=== PATIENT | female | born 1960 | race Caucasian/White ===

== ENCOUNTER → 2016-05-26 | Outpatient (CLI) | payer BC | LOC: WI 12:04 | PROVIDERS: ATTEND Specialist | DX: C50.412 Malignant neoplasm of upper-outer quadrant of left female breast (principal) | CPT/HCPCS: 77061; 76642; G0204 ==

== ENCOUNTER → 2016-06-04 | Day surgery (SDC) | payer BC ==
[~2016-06-04] MED LIST: LIDOCAINE 2% INJ (20 MG/ML) 20 ML MDV ONE
== END ==
LOC: WI 08:08
PROVIDERS: ATTEND Specialist
PROC: 0HBT3ZX Excision of Right Breast, Percutaneous Approach, Diagnostic (ICD-10-PCS; principal; 2016-06-04)
DX: C50.412 Malignant neoplasm of upper-outer quadrant of left female breast (principal)
CPT/HCPCS: 88305 ×2; 88342; 19083; 19084; J3490

== ENCOUNTER → 2016-09-11 | Outpatient (CLI) | payer BC ==
[2016-09-11 10:36] LABS: ABSOLUTE EOSINOPHILS # (AUTO) 0.2 10^3/uL (0.0-0.6); ABSOLUTE LYMPHOCYTES (AUTO) 0.9 10^3/uL (0.5-4.7); ABSOLUTE MONOCYTES (AUTO) 0.3 10^3/uL (0.1-1.4); ABSOLUTE NEUT (AUTO) 1.4 10^3/uL (1.7-8.2); BASOPHILS % (AUTO) 0.7 % (0-2); HEMOGLOBIN 13.4 g/dL (12.0-15.5); HGB HCT DIFFERENCE 0.2; LYMPHOCYTES % (AUTO) 30.7 % (13-45); MEAN CORPUSCULAR HEMOGLOBIN 31.9 pg (27.0-33.4); MEAN CORPUSCULAR HGB CONC 33.4 g/dL (32.0-36.0); MEAN CORPUSCULAR VOLUME 96 fl (80-97); RED BLOOD COUNT 4.19 10^6/uL (3.72-5.28); RED CELL DISTRIBUTION WIDTH 13.1 % (11.5-14.0); SEGMENTED NEUTROPHILS % (AUTO) 49.6 % (42-78); WHITE BLOOD COUNT 2.9 10^3/uL (4.0-10.5)
[2016-09-11 10:57] LABS: ALANINE AMINOTRANSFERASE 40 U/L (9-52); ALBUMIN 4.3 g/dL (3.5-5.0); ALKALINE PHOSPHATASE 89 U/L (38-126); ANION GAP 9 (5-19); ASPARTATE AMINO TRANSFERASE 26 U/L (14-36); BILIRUBIN,DIRECT 0.3 mg/dL (0.0-0.4); BILIRUBIN,TOTAL 0.5 mg/dL (0.2-1.3); BLOOD UREA NITROGEN 13 mg/dL (7-20); CALCIUM 9.5 mg/dL (8.4-10.2); CARBON DIOXIDE 30 mmol/L (22-30); CHLORIDE 104 mmol/L (98-107); CHOLESTEROL 218.68 mg/dL (0-200); CREATININE RESULT 0.72 mg/dL (0.52-1.25); Direct HDL 98 mg/dL (>40); GLUCOSE 192 mg/dL (75-110); SODIUM 143.2 mmol/L (137-145); TOTAL PROTEIN 7.2 g/dL (6.3-8.2); TRIGLYCERIDES 66 mg/dL (<150)
[2016-09-11 11:08] LABS: DIRECT LDL 92 mg/dL (<100)
== END ==
LOC: OD 09:22
PROVIDERS: ATTEND Psychiatry & Neurology Psychiatry
DX: F34.1 Dysthymic disorder (principal); F40.01 Agoraphobia with panic disorder
CPT/HCPCS: 36415; 80053; 80061; 84443; 85025

== ENCOUNTER → 2016-11-18 | Outpatient (CLI) | payer BC ==
--- NOTE | 2016-11-18 11:37 | WOMENS IMAGING REPORT ---
EXAM DESCRIPTION: BONE DENSITY HIP/SPINE COMPLETED DATE/TIME: 11/18/2016 9:28 am REASON FOR STUDY: AGE-RELATED OSTEOPROSIS; M81.0 Z12.31 ENCNTR SCREEN MAMMOGRAM FOR MALIGNANT NEOPL ASM OF LISET M81.0 AGE-RELATED OSTEOPOROSIS W/O CURRENT PATHOLOGICAL FRAC COMPARISON: None. TECHNIQUE: Dual-Energy X-ray Absorptiometry (DEXA) of the AP Spine and Hip. LIMITATIONS: None. FINDINGS: LUMBAR SPINE: The bone mineral density (BMD) measured from L1-L4 in the AP projection correlates with a T-score of -2.3, which is osteopenia as defined by the World Health Organization. HIP: The bone mineral density (BMD) measured in the left hip correlates with a T-score of -2.9, which is o steoporosis as defined by the World Health Organization. IMPRESSION: 1. LUMBAR SPINE: OSTEOPENIA. 2. HIP: OSTEOPOROSIS. COMMENT: The World Health Organization defines low BMD as follows: T-score: Normal: Greater than -1.0 Osteopenia: Between -1.0 and -2.5 Osteoporosis: Less than -2.5 without fractures Established osteoporosis: Less than -2.5 with fractures In general, you may wish to consider: Diagnosis Treatment Follow-up DEXA Normal BMD Prevention 2-3 years Osteopenia Prevention/Therapy 1-2 years Osteoporosis Therapy Yearly TECHNICAL DOCUMENTATION: JOB ID: [id number] [employer]- All Rights Reserved
== END ==
LOC: WI 08:21
PROVIDERS: ATTEND Physician Assistant
DX: Z12.31 Encounter for screening mammogram for malignant neoplasm of breast (principal); M85.88 Other specified disorders of bone density and structure, other site
CPT/HCPCS: 77080

== ENCOUNTER → 2017-06-07 | Outpatient (CLI) | payer BC ==
--- NOTE | 2017-06-11 12:58 | WOMENS IMAGING REPORT ---
EXAM DESCRIPTION: 3D SCREENING MAMMO RIGHT COMPLETED DATE/TIME: 06/07/2017 11:09 am REASON FOR STUDY: SCREENING MAMMO Z12.31 ENCNTR SCREEN MAMMOGRAM FOR MALIGNANT NEOPLASM OF LISET COMPARISON: Multiple since 2012 TECHNIQUE: Standard craniocaudal and mediolateral oblique views of the breast recorded using digital acquisition and breast tomosynthesis. LIMITATIONS: None. FINDINGS: BREAST: Right Findings present which are benign by mammographic criteria. No suspicious masses, calcifications or a rchitectural distortion. Pertinent benign findings: Stable benign breast parenchymal calcifications. Biopsy clip laterally. Read with the assistance of CAD. .[facility] - R2 Cenova Version 1.3 .[facility] - R2 Cenova Version 1.3 .[facility] - R2 Cenova Version 2.4 .[facility] [place] Cenova Version 2.4 .[facility] - R2 Agronomy Manager Version 9.2 Benign mammographic findings may include one or more of the following: Smooth masses, popcorn/rim/co arse calcifications, asymmetries, post-procedure changes, and lesions with long-standing stability. IMPRESSION: NORMAL MAMMOGRAM. BIRADS 2. BREAST DENSITY: c. The breasts are heterogeneously dense, which may obscure small masses. BIRAD: 2 Benign Finding(s) RECOMMENDATION: RECOMMENDATION: ROUTINE SCREENING. Please continue yearly right breast screening t omosynthesis in June 2018 COMMENT: The patient has been notified of the results by letter per MQSA requirements. Additional no tification policies are in place for contacting patient with suspicious or incomplete findings. Quality ID #[id number]: The [employer] recommends an annual screening mammogram for women aged 40 years or over. This facility utilizes a reminder system to ensure that all patients receive reminder letters, and/or direct phone calls for appointments. This includes reminders for routine scr eening mammograms, diagnostic mammograms, or other Breast Imaging Interventions when appropriate. Th is patient will be placed in the appropriate reminder system. The [employer] (ACR) has developed recommendations for screening MRI of the breast s in certain patient populations, to be used in conjunction with mammography. Breast MRI surveillance may be appropriate for women with more than 20% lifetime risk of developing breast cancer as determi romana by genetic testing, significant family history of the disease, or history of mantle radiation for Hodgkins Disease. ACR Practice Guidelines 2008. DBT Technology DBT is a type of tomographic mammography. With conventional mammography, overlapping breast tissue ma y make lesions difficult to detect, even with good compression. DBT uses an x-ray tube that rotates a round the breast, taking images at different angles. These images are then combined to create thin sl ices of the breast that the radiologist can view as a 3D reconstruction. The [employer] unit can perform full-field digital mammograms (2D imaging); or DBT (3D imaging); or both, in a combination mode that quickly performs both the mammogram and the tomosynthesis scan while the breast is still compressed. PQRS 6045F: Fluoroscopic imaging is not utilized for breast tomosynthesis. TECHNICAL DOCUMENTATION: FINDING NUMBER: (1) ASSESSMENT: (1) JOB ID: [id number] [email or web address]- All Rights Reserved Reading location - IP/workstation name: [email or web address]
== END ==
LOC: WI 09:46
PROVIDERS: ATTEND Physician Assistant
DX: Z12.31 Encounter for screening mammogram for malignant neoplasm of breast (principal)

== ENCOUNTER 2018-04-21 17:03 | Emergency (ER) | payer BC ==
[2018-04-21] MEDS ORDERED: LIDOCAINE 4% TRANSPARENT DRESSING 5 GM KIT TP ONE (17:38)
--- NOTE | 2018-04-21 17:56 | ER Document Report ---
ED General - General Stated Complaint: BLOOD SUGAR ISSUES Time Seen by Provider: 04/21/18 17:18 Primary Care Provider: ANA OLEARY MD [NO LOCAL MD] - Follow up tomorrow MER SHIN PA-C [ALLIED HEALTH PROFESSIONAL] - Follow up as needed Notes: Patient is a 57-year-old female insulin-dependent diabetic that presents to the emergency department for chief complaint of hypoglycemic episode. Patient was at home earlier today, was babysitting her grandchildren, when she started to feel sweaty, she tried to eat something, and then had passed out and forgot some of this, EMS was called, her blood glucose was noted to be 12 at that time, she is on insulin pump, usually has a continuous blood glucose monitor that interacts with her pump however she was charging that and it was not on at the time, so she was not made aware of how low her blood glucose was going and also the pump was not adjusted to reduce the amount of insulin being administered. She was not eating as much as she usually does today and thinks that may have b een the cause. She is currently at her baseline, she denies having any nausea, vomiting, headache. By EMS she received a 100 mL bag of D10 water and is feeling much better. No other complaints at this time. Her insulin pump has been removed for the moment. Past Medical History: Type 1 diabetes mellitus, breast cancer in remission Past Surgical History: Left mastectomy, Mediport placement Social History: Denies tobacco, alcohol or drug use. Family History: Reviewed and noncontributory for presenting illness Allergies: Reviewed, see documented allergy list. REVIEW OF SYSTEMS: Other than noted above, the 12 point review of systems was reviewed with the patient and were negative, all pertinent findings are included in the HPI. PHYSICAL EXAMINATION: Vital signs reviewed, nursing noted reviewed. GENERAL: Well-appearing, well-nourished and in no acute distress. HEAD: Atraumatic, normocephalic. EYES: Eyes appear normal, extraocular movements intact, sclera anicteric, conjunctiva are normal. ENT: nares patent, oropharynx clear without exudates. Moist mucous membranes. NECK: Normal range of motion, supple without lymphadenopathy LUNGS: Breath sounds clear to auscultation bilaterally and equal. No wheezes rales or rhonchi. HEART: Regular rate and rhythm without murmurs ABDOMEN: Soft, nontender, normoactive bowel sounds. No rebound, guarding, or rigidity. No masses appreciated. EXTREMITIES: Nontender, good range of motion, no pitting or edema. NEUROLOGICAL: No focal neurological deficits. Moves all extremities spontaneously Motor and sensory grossly intact on exam. PSYCH: Normal mood, normal affect. SKIN: Warm, Dry, normal turgor, no rashes or lesions noted on exposed skin TRAVEL OUTSIDE OF THE [place] IN LAST 30 DAYS: No - Related Data Allergies/Adverse Reactions: cephalexin monohydrate [From Keflex] Allergy (Verified 12/16/15 00:47) iodine [Iodine] Allergy (Verified 12/16/15 00:47) Past Medical History - Social History Smoking Status: Never Smoker Family History: Reviewed & Not Pertinent - Past Medical History Cardiac Medical History: Reports: Hx Hypertension Endocrine Medical History: Reports: Hx Diabetes Mellitus Type 1 Psychiatric Medical History: Reports: Hx Depression Past Surgical History: Reports: Hx Abdominal Surgery, Hx Appendectomy, Hx Breast Surgery - left masectomy, Hx Section, Hx Cholecystectomy - Immunizations Immunizations up to date: Yes Hx Diphtheria, Pertussis, Tetanus Vaccination: Yes Physical Exam - Vital signs Vitals: Resp Pulse Ox 18 100 04/21/18 17:14 04/21/18 17:14 Course - Re-evaluation Re-evalutation: Patient seen and examined vital signs reviewed. Patient was evaluated and treated as appropriate for the patient's presenting symptoms and complaint, with consideration of any critical or life threatening conditions that may be associated with their obtained history and exam as noted above. Patient was treated with D10 water by EMS, and patient was at baseline The patient was re-evaluated and was stable, and felt comfortable being discharged home Evaluation was most consistent with hypoglycemic episode in an insulin-dependent diabetic Plan of care was discussed with the patient at this point, after careful consideration I feel that that patient can be discharged from the emergency department, the patient was educated treatments and reasons to return to the emergency department based on their presumed diagnosis as noted above, they were advised to followup with a primary care physician in 2-3 days. Patient was agreeable to plan of care. *Note is created using voice recognition software and may contain spelling, syntax or grammatical errors. Laboratory 04/21/18 17:15 POC Glucose 86 - Vital Signs Vital signs: Temp Pulse Resp BP Pulse Ox 97.6 F 17 131/66 H 98 04/21/18 18:18 04/21/18 18:18 04/21/18 18:18 04/21/18 18:18 Discharge - Discharge Clinical Impression: Hypoglycemic episode in patient with diabetes mellitus Condition: Stable Disposition: HOME, SELF-CARE Instructions: Hypoglycemia ([facility]) Additional Instructions: Please follow-up with your law examiner tomorrow, call to discuss strategies regarding your insulin pump and continuous glucose monitor. When you get home make sure to eat frequent small meals, and to place her pump back on it your usual regimen, and Starcher continuous glucose monitoring again. Referrals: MER SHIN PAJaxsonC [ALLIED HEALTH PROFESSIONAL] - Follow up as needed ANA OLEARY MD [NO LOCAL MD] - Follow up tomorrow
[2018-04-21 18:41] VITALS: BP 131/66
== END 2018-04-21 18:42 | disposition home or self-care (01) ==
LOC: ER 17:03
DX: E10.65 Type 1 diabetes mellitus with hyperglycemia (principal); I10 Essential (primary) hypertension; Z79.4 Long term (current) use of insulin; Z85.3 Personal history of malignant neoplasm of breast; Z90.49 Acquired absence of other specified parts of digestive tract
CPT/HCPCS: 82962; 99285

== ENCOUNTER → 2018-06-10 | Outpatient (CLI) | payer BC ==
--- NOTE | 2018-06-10 11:38 | WOMENS IMAGING REPORT ---
EXAM DESCRIPTION: 3D SCREENING MAMMO RIGHT COMPLETED DATE/TIME: 06/10/2018 9:15 am REASON FOR STUDY: Z12.31 ROUTINE 3D RT SCREENING Z12.31 ENCNTR SCREEN MAMMOGRAM FOR MALIGNANT NEOPL ASM OF LISET COMPARISON: Multiple since 2012 TECHNIQUE: Standard craniocaudal and mediolateral oblique views of the right breast recorded using d igital acquisition and breast tomosynthesis. Post left mastectomy in 2014 LIMITATIONS: None. FINDINGS: BREAST LATERALITY: Right No masses, worrisome calcifications or architectural distortion. No areas of suspicion. Old biopsy clips are present in the lateral half of the right breast from benign prior biopsies. Read with the assistance of CAD. .[facility] - R2 [employer] Security Version 9.2 IMPRESSION: NORMAL MAMMOGRAM. BIRADS 1. BREAST DENSITY: c. The breasts are heterogeneously dense, which may obscure small masses. BIRAD: 1 Negative RECOMMENDATION: RECOMMENDATION: ROUTINE SCREENING. COMMENT: The patient has been notified of the results by letter per SA requirements. Additional no tification policies are in place for contacting patient with suspicious or incomplete findings. Quality ID #225: The [employer] recommends an annual screening mammogram for women aged 40 years or over. This facility utilizes a reminder system to ensure that all patients receive reminder letters, and/or direct phone calls for appointments. This includes reminders for routine scr eening mammograms, diagnostic mammograms, or other Breast Imaging Interventions when appropriate. Th is patient will be placed in the appropriate reminder system. DBT Technology DBT is a type of tomographic mammography. With conventional mammography, overlapping breast tissue ma y make lesions difficult to detect, even with good compression. DBT uses an x-ray tube that rotates a round the breast, taking images at different angles. These images are then combined to create thin sl ices of the breast that the radiologist can view as a 3D reconstruction. The [employer] unit can perform full-field digital mammograms (2D imaging); or DBT (3D imaging); or both, in a combination mode that quickly performs both the mammogram and the tomosynthesis scan while the breast is still compressed. TECHNICAL DOCUMENTATION: FINDING NUMBER: (1) ASSESSMENT: (1) JOB ID: [id number] [employer]- All Rights Reserved Reading location - IP/workstation name: [email or web address]
== END ==
LOC: WI 08:19
PROVIDERS: ATTEND Internal Medicine Hematology & Oncology
DX: Z12.31 Encounter for screening mammogram for malignant neoplasm of breast (principal)

== ENCOUNTER → 2018-11-21 | Outpatient (CLI) | payer BC ==
--- NOTE | 2018-11-21 10:33 | WOMENS IMAGING REPORT ---
EXAM DESCRIPTION: BONE DENSITY HIP/SPINE COMPLETED DATE/TIME: 11/21/2018 9:59 am REASON FOR STUDY: M81.0 AGE-RELATED OSTEOPOROSIS WITHOUT CURRENT PATHOLOGICAL FRACTURE M81.0 AGE-RE LATED OSTEOPOROSIS W/O CURRENT PATHOLOGICAL FRAC COMPARISON: 2016 TECHNIQUE: Dual-Energy X-ray Absorptiometry (DEXA) of the AP Spine and Hip. LIMITATIONS: None. FINDINGS: LUMBAR SPINE: The bone mineral density (BMD) measured from L1-L4 in the AP projection correlates with a T-score of -1.6, which is osteopenia as defined by the World Health Organization. BMD Change vs Baseline: 10% increase HIP: The bone mineral density (BMD) measured in the left hip correlates with a T-score of -2.7, which is o steoporosis as defined by the World Health Organization. BMD Change vs Baseline: 5% increase 10 year Fracture Risk Assessment: Major Osteoporotic Fracture: Not available. Hip Fracture: Not available. IMPRESSION: 1. LUMBAR SPINE WHO CLASSIFICATION: OSTEOPENIA. 2. HIP WHO CLASSIFICATION: OSTEOPOROSIS. OVERALL ASSESSMENT: WHO CLASSIFICATION: OSTEOPOROSIS. COMMENT: The World Health Organization defines low BMD as follows: T-score: Normal: Greater than -1.0 Osteopenia: Between -1.0 and -2.5 Osteoporosis: Less than -2.5 without fractures Established osteoporosis: Less than -2.5 with fractures In general, you may wish to consider: Diagnosis Treatment Follow-up DEXA Normal BMD Prevention 2-3 years Osteopenia Prevention/Therapy 1-2 years Osteoporosis Therapy Yearly TECHNICAL DOCUMENTATION: JOB ID: [id number] [employer]- All Rights Reserved Reading location - IP/workstation name: [email or web address]
== END ==
LOC: WI 09:35
PROVIDERS: ATTEND Internal Medicine Hematology & Oncology
DX: M81.0 Age-related osteoporosis without current pathological fracture (principal)
CPT/HCPCS: 77080

== ENCOUNTER → 2019-03-06 | Outpatient (CLI) | payer BC ==
--- NOTE | 2019-03-06 14:37 | RADIOLOGY REPORT (SQ) ---
EXAM DESCRIPTION: L SPINE WHOLE COMPLETED DATE/TIME: 03/06/2019 2:18 pm REASON FOR STUDY: LOW BACK PAIN (M54.5) M54.5 LOW BACK PAIN M54.6 PAIN IN THORACIC SPINE M54.2 CE RVICALGIA COMPARISON: None. NUMBER OF VIEWS: Five views including obliques. TECHNIQUE: AP, lateral, oblique, and sacral radiographic images acquired of the lumbar spine. LIMITATIONS: None. FINDINGS: MINERALIZATION: Normal. SEGMENTATION: Normal. No transitional anatomy. ALIGNMENT: Normal. VERTEBRAE: Maintained height. No fracture or worrisome bone lesion. DISCS: Preserved height. No significant osteophytes or end plate irregularity. POSTERIOR ELEMENTS: Pedicles and facets are intact. No pars defect or posterior arch defects. HARDWARE: None in the spine. PARASPINAL SOFT TISSUES: Normal. PELVIS: Intact as visualized. No fractures or worrisome bone lesions. SI joints intact. OTHER: No other significant finding. IMPRESSION: NORMAL 5 VIEW LUMBAR SPINE. TECHNICAL DOCUMENTATION: JOB ID: [id number] [employer]- All Rights Reserved Reading location - IP/workstation name: [email or web address]
--- NOTE | 2019-03-06 14:38 | RADIOLOGY REPORT (SQ) ---
EXAM DESCRIPTION: T SPINE AP/LAT COMPLETED DATE/TIME: 03/06/2019 2:17 pm REASON FOR STUDY: PAIN IN T SPINE (M54.6) M54.5 LOW BACK PAIN M54.6 PAIN IN THORACIC SPINE M54.2 CERVICALGIA COMPARISON: None. NUMBER OF VIEWS: Two views. TECHNIQUE: AP and lateral radiographic images acquired of the thoracic spine. LIMITATIONS: None. FINDINGS: MINERALIZATION: Normal. ALIGNMENT: Normal. No scoliosis. VERTEBRAE: No fracture or bone lesion. Maintained height, normal segmentation. DISCS: Multilevel disc space narrowing with osteophytes. HARDWARE: None in the spine. MEDIASTINUM AND SOFT TISSUES: Normal heart size and aortic contour. No soft tissue abnormality. VISUALIZED LUNG SARAVIA: Clear. OTHER: No other significant finding. IMPRESSION: SPONDYLOSIS WITHOUT BONE LESION OR FRACTURE. TECHNICAL DOCUMENTATION: JOB ID: [id number] [employer]- All Rights Reserved Reading location - IP/workstation name: [email or web address]
--- NOTE | 2019-03-06 14:39 | RADIOLOGY REPORT (SQ) ---
EXAM DESCRIPTION: CERV SP 4 OR 5 VIEWS COMPLETED DATE/TIME: 03/06/2019 2:17 pm REASON FOR STUDY: CERVICALGIA (M54.2) M54.5 LOW BACK PAIN M54.6 PAIN IN THORACIC SPINE M54.2 CERV ICALGIA COMPARISON: None. NUMBER OF VIEWS: Five views. TECHNIQUE: AP, lateral, obliques and odontoid radiographic images acquired of the cervical spine. LIMITATIONS: None. FINDINGS: MINERALIZATION: Normal. ALIGNMENT: Anatomic. VERTEBRAE: Vertebral bodies of normal height. DISCS: There is disc space narrowing at C5-C6. Small anterior osteophytes at the same level. FORAMINA: No osteophytes or foraminal narrowing. LATERAL AND POSTERIOR ELEMENTS: Facets, lateral masses and spinous processes without significant find ings. HARDWARE: None in the spine. SOFT TISSUES: No masses or calcifications. Lung apices clear. OTHER: No other significant finding. IMPRESSION: Disc space narrowing at C5-C6. No other significant findings. TECHNICAL DOCUMENTATION: JOB ID: [id number] [employer]- All Rights Reserved Reading location - IP/workstation name: [email or web address]
== END ==
LOC: RAD 13:00
PROVIDERS: ATTEND Nurse Practitioner Family
DX: M54.5 Low back pain (principal); M47.894 Other spondylosis, thoracic region; M54.6 Pain in thoracic spine; M48.02 Spinal stenosis, cervical region; M54.2 Cervicalgia
CPT/HCPCS: 72050; 72070; 72110

== ENCOUNTER → 2019-07-25 | Outpatient (CLI) | payer MEDICARE, OTHER ==
--- NOTE | 2019-07-26 08:25 | WOMENS IMAGING REPORT ---
EXAM DESCRIPTION: 3D SCREENING MAMMO RIGHT IMAGES COMPLETED DATE/TIME: 07/25/2019 11:06 am REASON FOR STUDY: Z12.31 ENCOUNTER FOR SCREENING MAMMOGRAM FOR MALIGNANT NEOPLASM OF BREAST Z12.31 ENCNTR SCREEN MAMMOGRAM FOR MALIGNANT NEOPLASM OF LISET COMPARISON: 06/10/2028, 06/07/2017, 06/04/2016 EXAM PARAMETERS: Standard craniocaudal and mediolateral oblique views of the breast recorded using d igital acquisition and breast tomosynthesis. Read with the assistance of CAD. .[facility] - R2 Cenova Version 1.3 LIMITATIONS: None. FINDINGS: BREAST LATERALITY: right No suspicious masses, suspicious calcifications or architectural distortion. No areas of concern. IMPRESSION: NEGATIVE MAMMOGRAM. BIRADS 1. BREAST DENSITY: c. The breasts are heterogeneously dense, which may obscure small masses. BIRAD: ASSESSMENT: 1 Negative RECOMMENDATION: RECOMMENDATION: ROUTINE SCREENING. COMMENT: The patient has been notified of the results by letter per SA requirements. Additional no tification policies are in place for contacting patient with suspicious or incomplete findings. Quality ID #225: The [employer] recommends an annual screening mammogram for women aged 40 years or over. This facility utilizes a reminder system to ensure that all patients receive reminder letters, and/or direct phone calls for appointments. This includes reminders for routine scr eening mammograms, diagnostic mammograms, or other Breast Imaging Interventions when appropriate. Th is patient will be placed in the appropriate reminder system. TECHNICAL DOCUMENTATION: FINDING NUMBER: (1) ASSESSMENT: (1) JOB ID: [id number] [employer]- All Rights Reserved Reading location - IP/workstation name: [email or web address]
== END ==
LOC: WI 10:37
PROVIDERS: ATTEND Nurse Practitioner
DX: Z12.31 Encounter for screening mammogram for malignant neoplasm of breast (principal); Z90.12 Acquired absence of left breast and nipple

== ENCOUNTER 2019-12-31 20:55 | Inpatient (IN) | payer MEDICARE, OTHER ==
--- NOTE | 2019-12-31 21:10 | ER Document Report ---
ED Medical Screen (RME) - General Stated Complaint: VOMITTING, HIGH SUGAR Time Seen by Provider: 12/31/19 21:07 Primary Care Provider: DL LEDBETTER FNP-C [Primary Care Provider] - Follow up as needed TRAVEL OUTSIDE OF THE [place] IN LAST 30 DAYS: No - HPI Notes: Patient is a 59-year-old female with a history of diabetes who presents with hyperglycemia and vomiting. Patient has an insulin pump and her alarm has been going off that her blood sugar is high and ranging in the 600s. Accu-Chek done here in the ED read as "high". She reports nausea but denies diarrhea, chest pain, and shortness of breath. - Related Data Allergies/Adverse Reactions: cephalexin monohydrate [From Keflex] Allergy (Verified 09/19/18 16:18) iodine [Iodine] Allergy (Verified 09/19/18 16:18) Past Medical History - Past Medical History Cardiac Medical History: Reports: Hx Hypertension Endocrine Medical History: Reports: Hx Diabetes Mellitus Type 1 Renal/ Medical History: Denies: Hx Peritoneal Dialysis Psychiatric Medical History: Reports: Hx Depression Past Surgical History: Reports: Hx Abdominal Surgery, Hx Appendectomy, Hx Breast Surgery - left masectomy, Hx Section, Hx Cholecystectomy - Immunizations Immunizations up to date: Yes Hx Diphtheria, Pertussis, Tetanus Vaccination: Yes Physical Exam - Cardiovascular Rhythm: Tachycardia Heart sounds: Normal auscultation Course - Re-evaluation Re-evalutation: I have greeted and performed a rapid initial assessment of this patient. A comprehensive ED assessment and evaluation of the patient, analysis of test res ults and completion of medical decision making process will be conducted by an additional ED providers. Doctor's Discharge - Discharge Referrals: DL LEDBETTER FNP-C [Primary Care Provider] - Follow up as needed
[2019-12-31] MEDS ORDERED: NORMAL SALINE 1000 ML 1,000 ML IV ONE (21:38)
[2019-12-31 21:45] LABS: HEMATOCRIT 40.7 % (36.0-47.0); HEMOGLOBIN 12.3 g/dL (12.0-15.5); MEAN CORPUSCULAR HEMOGLOBIN 30.2 pg (27.0-33.4); MEAN CORPUSCULAR HGB CONC 30.1 g/dL (32.0-36.0); MEAN CORPUSCULAR VOLUME 100 fl (80-97); PLATELET COUNT 314 10^3/uL (150-450); RED BLOOD COUNT 4.06 10^6/uL (3.72-5.28); RED CELL DISTRIBUTION WIDTH 14.5 % (11.5-14.0); WHITE BLOOD COUNT 17.8 10^3/uL (4.0-10.5)
[2019-12-31 22:05] LABS: ALBUMIN 4.7 g/dL (3.5-5.0); ALKALINE PHOSPHATASE 174 U/L (38-126); ASPARTATE AMINO TRANSFERASE 28 U/L (14-36); BILIRUBIN,DIRECT 0.4 mg/dL (0.0-0.4); BILIRUBIN,TOTAL 0.5 mg/dL (0.2-1.3); BLOOD UREA NITROGEN 36 mg/dL (7-20); CALCIUM 10.6 mg/dL (8.4-10.2); TOTAL PROTEIN 7.6 g/dL (6.3-8.2)
[2019-12-31 22:08] LABS: ABSOLUTE LYMPHOCYTES# (MANUAL) 1.2 10^3/uL (0.5-4.7); ABSOLUTE MONOCYTES # (MANUAL) 0.9 10^3/uL (0.1-1.4); BASOPHILS % (MANUAL) 0 % (0-2); EOSINOPHILS % (MANUAL) 0 % (0-6); HYPERSEGMENTED NEUTROPHILS PRESENT; LYMPHOCYTES % (MANUAL) 7 % (13-45); MONOCYTES % (MANUAL) 5 % (3-13); SEGMENTED NEUTROPHILS % (MAN) 88 % (42-78); TOTAL CELLS COUNTED 100; TOXIC VACUOLATION PRESENT
[2019-12-31 22:09] LABS: PLATELET COMMENT ADEQUATE
[2019-12-31 22:10] LABS: ANISOCYTOSIS SLIGHT; CHLORIDE 90 mmol/L (98-107)
[2019-12-31 22:12] LABS: BURR CELLS SLIGHT; PLATELET CLUMPS PRESENT; POIKILOCYTOSIS SLIGHT
[2019-12-31 22:15] LABS: ANION GAP 36 (5-19)
[2019-12-31 22:16] LABS: CARBON DIOXIDE 6 mmol/L (22-30); GLUCOSE 812 mg/dL (75-110)
[2019-12-31] MEDS ORDERED: NORMAL SALINE 100 ML with INSULIN REGULAR, HUMAN 100 UNIT IV PRN ×2 (22:29)
[2019-12-31] MEDS ORDERED: DEXTROSE 50%-WATER 25 GM/50 ML DISP.SYRIN IV PRN ×2 (22:29)
[2019-12-31] MEDS ORDERED: DEXTROSE 40% GEL 15 GM TUBE PO PRN ×2 (22:29)
[2019-12-31] MEDS ORDERED: GLUCAGON,HUMAN RECOMB 1 MG INJ IM PRN (22:29)
--- NOTE | 2019-12-31 22:32 | ER Document Report ---
ED General - General Chief Complaint: High Blood Sugar Stated Complaint: VOMITTING, HIGH SUGAR Time Seen by Provider: 12/31/19 21:07 Primary Care Provider: DL LEDBETTER FNP-C [Primary Care Provider] - Follow up as needed TRAVEL OUTSIDE OF THE [place] IN LAST 30 DAYS: No - HPI Notes: 59-year-old female presents with hyperglycemia, she is insulin-dependent diabetic and uses an insulin pump. HPI is limited due to patient's condition. She did bring her pump with her which is noted to have an empty insulin container. When asked when the last time she change it, patient replies that she did not change it yesterday. - Related Data Allergies/Adverse Reactions: cephalexin monohydrate [From Keflex] Allergy (Verified 09/19/18 16:18) iodine [Iodine] Allergy (Verified 09/19/18 16:18) Home Medications: insulin pump, Past Medical History - Social History Smoking Status: Former Smoker Family History: Reviewed & Not Pertinent - Past Medical History Cardiac Medical History: Reports: Hx Hypertension Endocrine Medical History: Reports: Hx Diabetes Mellitus Type 1 Renal/ Medical History: Denies: Hx Peritoneal Dialysis Psychiatric Medical History: Reports: Hx Depression Past Surgical History: Reports: Hx Abdominal Surgery, Hx Appendectomy, Hx Breast Surgery - left masectomy, Hx Section, Hx Cholecystectomy - Immunizations Immunizations up to date: Yes Hx Diphtheria, Pertussis, Tetanus Vaccination: Yes Review of Systems - Review of Systems -: Yes ROS unobtainable due to patient's medical condition Physical Exam - Vital signs Vitals: Temp Pulse Resp BP Pulse Ox 97.4 F 100 16 112/42 L 95 12/31/19 21:08 12/31/19 21:08 12/31/19 21:08 12/31/19 21:08 12/31/19 21:08 - General General appearance: Other - Intermittently somnolent - HEENT Head: Normocephalic, Atraumatic Extraocular movements intact: Yes Pupils: PERRL Mucous membranes: Dry Neck: Supple - Respiratory Respiratory status: Other - No kussumal respirations - Cardiovascular Rhythm: Tachycardia Heart sounds: Normal auscultation - Abdominal Tenderness: Nontender - Extremities General upper extremity: Normal ROM General lower extremity: Normal ROM. No: Edema - Neurological Notes: Patient is intermittently somnolent. She will awaken to voice and make eye contact and answer questions, she will follow commands however falls asleep again easily. Her face is symmetric and speech is clear, she moves all extremities. - Psychological Associated symptoms: Other - Unable to assess - Skin Skin Temperature: Warm Course - Re-evaluation Re-evalutation: 59-year-old female presents with hyperglycemia. Per nursing note patient has had a few episodes of vomiting as well today. On exam patient is sleepy but will awaken to voice, her pupils are equal and reactive and she will answer questions appropriately. I suspect this is due to her empty insulin pump which is at bedside. We will look for obvious infectious source as well. Highly suspicious for DKA. She is currently hemodynamically stable other than some mild sinus tachycardia. She received 1 L of fluids through triage, will give 2 additional liters of LR. Labs suggest DKA, she has hyperglycemia with bicarb of 5 and increased anion gap. She has a leukocytosis, possible reactionary. Hyperkalemia as well. Urine does not suggest UTI. Have ordered insulin infusion at 0.1 units/kg 01/01/20 01:03 Into check on patient. She remains drowsy however she will awaken and answer questions and follow commands. Pupils are equal and reactive. 01/01/20 01:52 VBG has been obtained, pH 7.16, repeat BMP is in process 01/01/20 02:25 Repeat BMP. Potassium has down trended, creatinine improved, glucose down trended. Bicarb slight improvement. 01/01/20 02:30 Spoke with ICU, appropriate for IMCU at this time given pH 01/01/20 02:[address] [place] for admission - Vital Signs Vital signs: Temp Pulse Resp BP Pulse Ox 97.4 F 100 18 130/46 H 99 12/31/19 21:08 12/31/19 21:08 01/01/20 02:30 01/01/20 02:30 01/01/20 02:30 - Laboratory Result Diagrams: 12/31/19 21:30 01/01/20 01:29 Laboratory results interpreted by me: 12/31/19 12/31/19 12/31/19 21:30 21:30 21:30 WBC 17.8 H MCV 100 H MCHC 30.1 L RDW 14.5 H Seg Neuts % (Manual) 88 H Lymphocytes % (Manual) 7 L Abs Neuts (Manual) 15.7 H VBG pH VBG pCO2 VBG HCO3 Sodium 131.7 L Potassium 7.0 H* Chloride 90 L Carbon Dioxide 6 L* Anion Gap 36 H BUN 36 H Creatinine 1.88 H Est GFR ( Amer) 33 L Est GFR (MDRD) Non-Af 27 L Glucose 812 H* POC Glucose Hemoglobin A1c % Calcium 10.6 H Phosphorus 11.4 H Alkaline Phosphatase 174 H Urine Protein Urine Glucose (UA) Urine Ketones 12/31/19 12/31/19 01/01/20 21:30 23:29 01:05 WBC MCV MCHC RDW Seg Neuts % (Manual) Lymphocytes % (Manual) Abs Neuts (Manual) VBG pH 7.16 L* VBG pCO2 22.0 L VBG HCO3 7.6 L Sodium Potassium Chloride Carbon Dioxide Anion Gap BUN Creatinine Est GFR ( Amer) Est GFR (MDRD) Non-Af Glucose POC Glucose Hemoglobin A1c % 9.6 H Calcium Phosphorus Alkaline Phosphatase Urine Protein 30 H Urine Glucose (UA) >=500 H Urine Ketones 80 H 01/01/20 01/01/20 01:29 02:03 WBC MCV MCHC RDW Seg Neuts % (Manual) Lymphocytes % (Manual) Abs Neuts (Manual) VBG pH VBG pCO2 VBG HCO3 Sodium 135.9 L Potassium Chloride Carbon Dioxide 7 L* Anion Gap 28 H BUN 34 H Creatinine 1.53 H Est GFR ( Amer) 42 L Est GFR (MDRD) Non-Af 35 L Glucose 609 H* POC Glucose 504 H* Hemoglobin A1c % Calcium Phosphorus Alkaline Phosphatase Urine Protein Urine Glucose (UA) Urine Ketones - EKG Interpretation by Me Additional EKG results interpreted by me: EKG is interpreted by me. Sinus tachycardia, rate 120. Narrow QRS, QTC within normal limits. No ST segment elevation or depressions. Prominent T waves however not necessarily peaked Critical Care Note - Critical Care Note Total time excluding time spent on procedures (mins): 60 - Patient has condition that is imminently life-threatening. Critical care time provided in relation to DKA and acute management on the ED Discharge - Discharge Clinical Impression: DKA (diabetic ketoacidoses) Qualifiers: Diabetes mellitus type: other specified (including DON) Diabetes mellitus complication detail: without coma Qualified Code(s): E13.10 - Other specified diabetes mellitus with ketoacidosis without coma Disposition: ADMITTED INPATIENT Admitting Provider: [facility] Admitted: IMCU Referrals: DL LEDBETTER FNP-C [Primary Care Provider] - Follow up as needed
[2019-12-31] MEDS: RINGERS SOLUTION,LACTATED 1,000 ML IV PRN ×2 (22:45→23:15)
[2019-12-31 22:53] LABS: PHOSPHORUS 11.4 mg/dL (2.5-4.5)
[2019-12-31] MEDS ORDERED: INSULIN REG, HUMAN 100 UNIT/ML 3 ML VIAL (PYX) ONE (22:53)
--- NOTE | 2020-01-01 00:35 | EKG REPORT ---
SEVERITY:- BORDERLINE ECG - SINUS TACHYCARDIA PROBABLE LEFT ATRIAL ABNORMALITY : Confirmed by: Deepthi Brown MD 01-Jan-2020 00:34:27
[2020-01-01] MEDS ORDERED: RINGERS SOLUTION,LACTATED 1,000 ML IV ONE ×2 (00:42)
[2020-01-01 01:10] LABS: APPEARANCE,URINE SLIGHTLY-CLOUDY; BILIRUBIN,URINE NEGATIVE (NEGATIVE); COLOR,URINE YELLOW; GLUCOSE, URINE >=500 mg/dL (NEGATIVE); KETONES,URINE 80 mg/dL (NEGATIVE); LEUKOCYTE ESTERASE,URINE NEGATIVE (NEGATIVE); NITRITE,URINE NEGATIVE (NEGATIVE); PROTEIN,URINE 30 mg/dL (NEGATIVE); URINE SPECIFIC GRAVITY 1.015; UROBILINOGEN,URINE NEGATIVE mg/dL (<2.0)
[2020-01-01 01:24] LABS: VENOUS BLOOD BASE EXCESS -19.3 mmol/L; VENOUS BLOOD HCO3 7.6 mmol/L (20-32)
[2020-01-01 01:37] LABS: VENOUS BLOOD PH 7.16 (7.30-7.42)
[2020-01-01 02:02] LABS: BLOOD UREA NITROGEN 34 mg/dL (7-20); CALCIUM 9.4 mg/dL (8.4-10.2)
[2020-01-01 02:08] LABS: CHLORIDE 101 mmol/L (98-107)
[2020-01-01 02:18] LABS: CARBON DIOXIDE 7 mmol/L (22-30); GLUCOSE 609 mg/dL (75-110)
[2020-01-01 02:29] LABS: ANION GAP 28 (5-19)
[2020-01-01] MEDS ORDERED: ONDANSETRON HCL INJ/PF 4 MG/2 ML SDV IV PRN (02:58)
[2020-01-01] MEDS ORDERED: 1/2 NORMAL SALINE 1,000 ML with POTASSIUM CHLORIDE 40 MEQ IV PRN ×2 (03:07)
[2020-01-01] MEDS ORDERED: GLUCAGON,HUMAN RECOMB 1 MG INJ IM PRN ×2 (03:11→14:53)
[2020-01-01] MEDS ORDERED: DEXTROSE 50%-WATER 25 GM/50 ML DISP.SYRIN IV PRN ×4 (03:11→14:53)
[2020-01-01] MEDS ORDERED: DEXTROSE 40% GEL 15 GM TUBE PO PRN ×4 (03:11→14:53)
--- NOTE | 2020-01-01 04:18 | PDOC H&P ---
History of Present Illness Admission Date/PCP: JALIL FRAGOSO Patient complains of: Nausea, vomiting History of Present Illness: Patient is very lethargic, unable to give detailed history. History is mainly from ER signout and chart review. CHARLIE PERKINS is a 59 year old female with a history of insulin-dependent diabetes mellitus currently on insulin pump presents the ED reporting nausea, vomiting and generalized weakness. Patient's insulin pump alarm was going off signaling had blood sugar to be high ranging in the 600s. Per ED physician, rochelle champagne's insulin pump was found empty and unable. Patient is very lethargic, sluggish to answer questions but is oriented to place, person and time. She is able to follow simple commands but is unable to give detailed history. She denies shortness of breath, chest pain, fever, dysuria, diarrhea, abdominal pain. Past Medical History Cardiac Medical History: Reports: Hypertension Endocrine Medical History: Reports: Diabetes Mellitus Type 1 Psychiatric Medical History: Reports: Depression Past Surgical History Past Surgical History: Reports: Appendectomy, Section, Cholecystectomy Social History Information Source: Patient Lives with: Family Smoking Status: Former Smoker Hx Recreational Drug Use: No Drugs: None - Advance Directive Resuscitation Status: Full Code Family History Family History: Reviewed & Not Pertinent Parental Family History Reviewed: Yes Children Family History Reviewed: Yes Sibling(s) Family History Reviewed.: Yes Medication/Allergy Home Medications: Metformin HCl [Glucophage 500 Mg Tablet] 500 mg PO BID 12/14/11 Montelukast Sodium [Singulair 10 mg Tablet] 10 mg PO DAILY 06/16/12 Hydrocodone/Acetaminophen [[place] 5-325 Tablet] 1 each PO Q4 PRN #24 tablet 01/12/14 Allergies/Adverse Reactions: cephalexin monohydrate [From Keflex] Allergy (Verified 09/19/18 16:18) iodine [Iodine] Allergy (Verified 09/19/18 16:18) Review of Systems ROS unobtainable: Due to mental status Physical Exam Vital Signs: Temp Pulse Resp BP Pulse Ox 97.4 F 100 18 130/46 H 99 12/31/19 21:08 12/31/19 21:08 01/01/20 02:30 01/01/20 02:30 01/01/20 02:30 Intake & Output 12/30/19 12/31/19 01/01/20 06:59 06:59 06:59 Intake Total 3000 Balance 3000 Weight 67.1 kg Additional comments: GENERAL APPEARANCE: Lethargic, arousable with voice, in no acute distress HEENT: Normocephalic and atraumatic. No scleral icterus. Dry oral mucosa NECK: Supple. No lymphadenopathy or tenderness. No JVD CHEST: Symmetric. Nontender to palpation. LUNGS: Clear with good air entry bilaterally. Has no Kussmaul's breathing. No wheezing or crackles appreciated HEART: Regular rate and rhythm with normal S1 and S2. No murmurs, gallops, or rubs. ABDOMEN: soft, active bowel sounds, no direct or rebound tenderness. No organomegaly detected. EXTREMITIES: No cyanosis, clubbing, or edema. MUSCULOSKELETAL: No deformity, atrophy or swelling noted SKIN: Warm, dry, and well perfused. No lesions or rashes are noted. NEUROLOGIC: No focal neurologic deficits detected. Results Laboratory Results: 12/31/19 21:30 01/01/20 01:29 12/31/19 12/31/19 12/31/19 21:30 21:30 21:30 WBC 17.8 H RBC 4.06 Hgb 12.3 Hct 40.7 MCV 100 H MCH 30.2 MCHC 30.1 L RDW 14.5 H Plt Count 314 Seg Neutrophils % Not Reportable VBG pH VBG pCO2 VBG HCO3 VBG Base Excess Sodium 131.7 L Potassium 7.0 H* Chloride 90 L Carbon Dioxide 6 L* Anion Gap 36 H BUN 36 H Creatinine 1.88 H Est GFR ( Amer) 33 L Glucose 812 H* Calcium 10.6 H Phosphorus 11.4 H Magnesium 2.2 Total Bilirubin 0.5 AST 28 Alkaline Phosphatase 174 H Total Protein 7.6 Albumin 4.7 Urine Color Urine Appearance Urine pH Ur Specific [place] Urine Protein Urine Glucose (UA) Urine Ketones Urine Blood Urine Nitrite Ur Leukocyte Esterase Urine WBC (Auto) Urine RBC (Auto) 12/31/19 01/01/20 01/01/20 23:29 01:05 01:29 WBC RBC Hgb Hct MCV MCH MCHC RDW Plt Count Seg Neutrophils % VBG pH 7.16 L* VBG pCO2 22.0 L VBG HCO3 7.6 L VBG Base Excess -19.3 Sodium 135.9 L Potassium 5.0 D Chloride 101 Carbon Dioxide 7 L* Anion Gap 28 H BUN 34 H Creatinine 1.53 H Est GFR ( Amer) 42 L Glucose 609 H* Calcium 9.4 Phosphorus Magnesium Total Bilirubin AST Alkaline Phosphatase Total Protein Albumin Urine Color YELLOW Urine Appearance SLIGHTLY-CLOUDY Urine pH 5.0 Ur Specific [place] 1.015 Urine Protein 30 H Urine Glucose (UA) >=500 H Urine Ketones 80 H Urine Blood NEGATIVE Urine Nitrite NEGATIVE Ur Leukocyte Esterase NEGATIVE Urine WBC (Auto) 0 Urine RBC (Auto) 0 Assessment and Plan - Diagnosis (1) DKA (diabetic ketoacidoses) Qualifiers: Diabetes mellitus type: other specified (including DON) Diabetes mellitus complication detail: without coma Qualified Code(s): E13.10 - Other specified diabetes mellitus with ketoacidosis without coma Is this a current diagnosis for this admission?: Yes Plan: Patient presents with nausea, vomiting and generalized weakness Tachycardic on presentation, blood pressure stable Likely precipitated by ineffective use of insulin pump Has anion gap metabolic acidosis with VBG showing a pH of 7.16 Anion gap was 36, serum bicarb 6 with a potassium level of 7.0 Patient received 4 L of IV fluid at the ER and was started on insulin drip BMP repeated 4 hours later showed improvement in potassium to 5.0, bicarb was 7 and anion gap was 28 Patient needs to be closely monitored for electrolyte derangements ideally in ICU setting but due to the unavailability of bed she will be admitted to IMCU Continued her on insulin drip with Accu-Chek q. 1 hourly Corrected sodium for hyperglycemia is 144 and will switch IV fluid to half- normal saline with 40 mEq potassium chloride to run at 250 mL/h We will adjust IV fluids, insulin drip and long-acting insulin per DKA protocol Keep n.p.o., fall precaution, aspiration precaution Continue monitoring BMP every 2 hourly (2) Hyperkalemia Is this a current diagnosis for this admission?: Yes Plan: Serum potassium 7.0 on presentation EKG showed no peaked T waves Repeat potassium was 5.0 Likely to have substantial deficit of potassium due to DKA Will add potassium chloride with IV fluid hydration Closely monitor electrolytes and replete as needed (3) Acute kidney injury Is this a current diagnosis for this admission?: Yes Plan: BUN/creatinine on presentation was 36/1.88, baseline creatinine in 2017 was 0.71 Likely prerenal due to volume depletion Continue IV hydration Monitor renal indicis and renally dose medications (4) Volume depletion Is this a current diagnosis for this admission?: Yes Plan: Likely due to osmotic diuresis from hyperglycemia Continue IV hydration as stated above Closely monitor vital signs (5) Leukocytosis Is this a current diagnosis for this admission?: Yes Plan: Currently patient has no signs of infection Likely to be due to hemoconcentration Continue IV hydration and monitor CBC (6) Diabetes mellitus Is this a current diagnosis for this admission?: Yes Plan: Patient currently admitted for DKA and continue management as stated above Consider diabetic education on insulin pump use before discharge - Time Time Spent with patient: 35 or more minutes Total Critical Time (Minutes): 45 Medications reviewed and adjusted accordingly: Yes Anticipated Discharge Disposition: Home, Self Care Anticipated Discharge Timeframe: within 72 hours - Inpatient Certification Based on my medical assessment, after consideration of the patient's comorbidities, presenting symptoms, or acuity I expect that the services needed warrant INPATIENT care.: Yes I certify that my determination is in accordance with my understanding of Medicare's requirements for reasonable and necessary INPATIENT services [42 CFR 412.3e].: Yes Medical Necessity: Need Close Monitoring Due to Risk of Patient Decompensation, Need For IV Fluids, Risk of Complication if Not Cared For in Hospital Post Hospital Care: D/C or Transfer Summary
[2020-01-01 04:57] LABS: BLOOD UREA NITROGEN 33 mg/dL (7-20); CALCIUM 9.7 mg/dL (8.4-10.2); POTASSIUM 4.5 mmol/L (3.6-5.0)
[2020-01-01 05:02] LABS: CARBON DIOXIDE 14 mmol/L (22-30); CHLORIDE 104 mmol/L (98-107)
[2020-01-01 05:20] LABS: ANION GAP 20 (5-19)
[2020-01-01 05:21] LABS: GLUCOSE 427 mg/dL (75-110)
[2020-01-01] MEDS ORDERED: POTASSI CL 20 MEQ/1/2NS 1L 20 MEQ/1,000 ML RTUINJ IV ONE (06:25)
[2020-01-01 07:48] LABS: ANION GAP 17 (5-19); BLOOD UREA NITROGEN 29 mg/dL (7-20); CALCIUM 10.1 mg/dL (8.4-10.2); CARBON DIOXIDE 17 mmol/L (22-30); CHLORIDE 105 mmol/L (98-107); GLUCOSE 337 mg/dL (75-110); POTASSIUM 4.4 mmol/L (3.6-5.0)
[2020-01-01 10:03] LABS: ANION GAP 13 (5-19); BLOOD UREA NITROGEN 31 mg/dL (7-20); CALCIUM 10.5 mg/dL (8.4-10.2); CARBON DIOXIDE 21 mmol/L (22-30); CHLORIDE 107 mmol/L (98-107); GLUCOSE 231 mg/dL (75-110); POTASSIUM 4.5 mmol/L (3.6-5.0)
[2020-01-01] MEDS ORDERED: POTASSI CL 20 MEQ/D5NS 1L 20 MEQ/1,000 ML RTUINJ IV ONE (10:57)
[2020-01-01] MEDS ORDERED: POTASSI CL 20 MEQ/D5NS 1L 1000 ML IV PRN (11:01)
--- NOTE | 2020-01-01 12:11 | RADIOLOGY REPORT (SQ) ---
EXAM DESCRIPTION: CT HEAD WITHOUT IMAGES COMPLETED DATE/TIME: 01/01/2020 11:59 am REASON FOR STUDY: confusion COMPARISON: 10/29/2014 TECHNIQUE: Axial images acquired through the brain without intravenous contrast. Images reviewed wi th bone, brain and subdural windows. Additional sagittal and coronal reconstructions were generated. Images stored on PACS. All CT scanners at this facility use dose modulation, iterative reconstruction, and/or weight based d osing when appropriate to reduce radiation dose to as low as reasonably achievable (ALARA). [facility]: Dose Right [facility]: CareDose [facility]: Dose Right [facility]: Teradose 4D [facility]: Health Plan One RADIATION DOSE: CT Rad equipment meets quality standard of care and radiation dose reduction techniq ues were employed. CTDIvol: 49.0 mGy. DLP: 1010 mGy-cm. mGy. LIMITATIONS: None. FINDINGS: VENTRICLES: Normal size and contour. CEREBRUM: No masses. No hemorrhage. No midline shift. No evidence for acute infarction. Normal gra y/white matter differentiation. No areas of low density in the white matter. CEREBELLUM: No masses. No hemorrhage. No alteration of density. No evidence for acute infarction. EXTRAAXIAL SPACES: No fluid collections. No masses. ORBITS AND GLOBE: No intra- or extraconal masses. Normal contour of globe without masses. CALVARIUM: No fracture. PARANASAL SINUSES: No fluid or mucosal thickening. SOFT TISSUES: No mass or hematoma. OTHER: No other significant finding. IMPRESSION: NORMAL BRAIN CT WITHOUT CONTRAST. EVIDENCE OF ACUTE STROKE: NO. COMMENT: Quality ID # [id number]: Final reports with documentation of one or more dose reduction techniques (e.g., Automated exposure control, adjustment of the mA and/or kV according to patient size, use of iterative reconstruction technique) TECHNICAL DOCUMENTATION: JOB ID: [id number] 2010 [employer]- All Rights Reserved Reading location - IP/workstation name: [email or web address]
[2020-01-01 13:05] LABS: ABSOLUTE LYMPHOCYTES (AUTO) 1.7 10^3/uL (0.5-4.7); ABSOLUTE MONOCYTES (AUTO) 1.2 10^3/uL (0.1-1.4); ABSOLUTE NEUT (AUTO) 10.3 10^3/uL (1.7-8.2); BASOPHILS % (AUTO) 0.3 % (0-2); HEMATOCRIT 31.8 % (36.0-47.0); HEMOGLOBIN 10.6 g/dL (12.0-15.5); LYMPHOCYTES % (AUTO) 13.1 % (13-45); MEAN CORPUSCULAR HEMOGLOBIN 29.7 pg (27.0-33.4); MEAN CORPUSCULAR HGB CONC 33.2 g/dL (32.0-36.0); MONOCYTES % (AUTO) 8.9 % (3-13); PLATELET COUNT 239 10^3/uL (150-450); RED BLOOD COUNT 3.55 10^6/uL (3.72-5.28); RED CELL DISTRIBUTION WIDTH 13.4 % (11.5-14.0); SEGMENTED NEUTROPHILS % (AUTO) 77.7 % (42-78); TOTAL CELLS COUNTED % (AUTO) 100 %; WHITE BLOOD COUNT 13.2 10^3/uL (4.0-10.5)
[2020-01-01] MEDS: ACETAMINOPHEN 325 MG TABLET PO PRN (13:17)
[2020-01-01] MEDS: HEPARIN SOD (PORCINE) 5,000 UNIT/ML 1 ML VIAL SUBCUT SCH ×2 (13:17→21:27)
[2020-01-01 13:25] LABS: MEAN CORPUSCULAR VOLUME 90 fl (80-97)
[2020-01-01 13:26] LABS: ANION GAP 11 (5-19); BLOOD UREA NITROGEN 27 mg/dL (7-20); CARBON DIOXIDE 22 mmol/L (22-30); CHLORIDE 108 mmol/L (98-107); GLUCOSE 107 mg/dL (75-110); POTASSIUM 4.1 mmol/L (3.6-5.0)
--- NOTE | 2020-01-01 15:34 | RADIOLOGY REPORT (SQ) ---
EXAM DESCRIPTION: CHEST 2 VIEWS IMAGES COMPLETED DATE/TIME: 01/01/2020 3:27 pm REASON FOR STUDY: fever COMPARISON: None. EXAM PARAMETERS: NUMBER OF VIEWS: two views TECHNIQUE: Digital Frontal and Lateral radiographic views of the chest acquired. RADIATION DOSE: NA LIMITATIONS: none FINDINGS: LUNGS AND PLEURA: Right lower lobe infiltrate consistent with pneumonia. Small right effu jessica. Left lung field is clear. MEDIASTINUM AND HILAR STRUCTURES: No masses or contour abnormalities. HEART AND VASCULAR STRUCTURES: Heart normal size. No evidence for failure. BONES: No acute findings. HARDWARE: [id number] is in place. OTHER: No other significant finding. IMPRESSION: Right lower lobe infiltrate consistent with pneumonia. Small right-sided pleural effusi on. TECHNICAL DOCUMENTATION: JOB ID: [id number] 2010 [employer]- All Rights Reserved Reading location - IP/workstation name: [email or web address]
[2020-01-01] MEDS: INSULIN LISPRO 100 UNIT/ML 3 ML VIAL SUBCUT SCH ×2 (16:23→21:34)
[2020-01-01] MEDS: NORMAL SALINE 1000 ML 1,000 ML IV PRN (16:23)
[2020-01-01] MEDS: MEROPENEM 1 GM in NORMAL SALINE 50 ML IV SCH (17:50)
[2020-01-01] MEDS: FAMOTIDINE 20 MG TABLET PO SCH ×2 (19:07→21:27)
[2020-01-01] MEDS: VANCOMYCIN HCL 1,000 MG in DEXTROSE 5%-WATER 250 ML IV SCH (21:34)
[2020-01-01] MEDS ORDERED: VANCOMYCIN HCL INJ 1000 MG VIAL IV SCH (22:00)
[2020-01-01] MEDS ORDERED: MEROPENEM 1 GM VIAL IV SCH (22:00)
[2020-01-02] MEDS: NORMAL SALINE 1000 ML 1,000 ML IV PRN
[2020-01-02] MEDS: MEROPENEM 1 GM in NORMAL SALINE 50 ML IV SCH ×2 (02:42→10:45)
[2020-01-02] MEDS ORDERED: INSULIN REG, HUMAN 100 UNIT/ML 3 ML VIAL (PYX) IV ONE (06:22)
[2020-01-02] MEDS ORDERED: NORMAL SALINE 1000 ML 1,000 ML IV ONE ×2 (06:22→06:23)
[2020-01-02 07:06] LABS: HEMOGLOBIN 10.6 g/dL (12.0-15.5); MEAN CORPUSCULAR HEMOGLOBIN 29.8 pg (27.0-33.4); MEAN CORPUSCULAR HGB CONC 31.2 g/dL (32.0-36.0); PLATELET COUNT 225 10^3/uL (150-450); RED BLOOD COUNT 3.57 10^6/uL (3.72-5.28); RED CELL DISTRIBUTION WIDTH 15.1 % (11.5-14.0); WHITE BLOOD COUNT 13.6 10^3/uL (4.0-10.5)
[2020-01-02 07:10] LABS: MEAN CORPUSCULAR VOLUME 95 fl (80-97)
[2020-01-02 07:25] LABS: BLOOD UREA NITROGEN 23 mg/dL (7-20); CALCIUM 9.9 mg/dL (8.4-10.2)
[2020-01-02 07:31] LABS: CHLORIDE 104 mmol/L (98-107)
[2020-01-02 07:40] LABS: ANION GAP 28 (5-19)
[2020-01-02 07:42] LABS: CARBON DIOXIDE 7 mmol/L (22-30); GLUCOSE 582 mg/dL (75-110)
[2020-01-02 08:36] LABS: POTASSIUM 5.7 mmol/L (3.6-5.0)
[2020-01-02] MEDS: HEPARIN SOD (PORCINE) 5,000 UNIT/ML 1 ML VIAL SUBCUT SCH ×2 (09:34→21:28)
[2020-01-02] MEDS: INSULIN, REGULAR 100 UNIT/100 ML NORMAL SALINE IV PRN ×2 (09:37)
[2020-01-02] MEDS: FAMOTIDINE 20 MG TABLET PO SCH ×2 (12:06→21:22)
--- NOTE | 2020-01-02 12:07 | PDOC PROGRESS REPORT ---
Subjective Date:: 01/02/20 Subjective:: Patient was seen and examined. Daughters at bedside. She is back in DKA today. Reason For Visit: DIABETIC KETOACIDOSIS,ACUTE KIDNEY INJURY,HYPERKAL Physical Exam Vital Signs: Temp Pulse Resp BP Pulse Ox 98.1 F 109 H 22 H 140/47 H 97 01/02/20 08:11 01/02/20 08:11 01/02/20 08:11 01/02/20 08:11 01/02/20 08:11 Intake & Output 01/01/20 01/02/20 01/03/20 06:59 06:59 06:59 Intake Total 4421 1487 7 Output Total 1510 Balance 4421 -23 7 Weight 147 lb 14.883 oz 159 lb 6.307 oz Exam: GENERAL APPEARANCE: Lethargic, arousable with voice, in no acute distress HEENT: Normocephalic and atraumatic. No scleral icterus. Dry oral mucosa NECK: Supple. No lymphadenopathy or tenderness. No JVD CHEST: Symmetric. Nontender to palpation. LUNGS: Clear with good air entry bilaterally. Has no Kussmaul's breathing. No wheezing or crackles appreciated HEART: Regular rate and rhythm with normal S1 and S2. No murmurs, gallops, or ru bs. ABDOMEN: soft, active bowel sounds, no direct or rebound tenderness. No organomegaly detected. EXTREMITIES: No cyanosis, clubbing, or edema. MUSCULOSKELETAL: No deformity, atrophy or swelling noted SKIN: Warm, dry, and well perfused. No lesions or rashes are noted. NEUROLOGIC: No focal neurologic deficits detected. Results Laboratory Results: 01/02/20 06:30 01/02/20 06:30 01/01/20 01/01/20 01/01/20 08:40 12:25 12:25 WBC Cancelled 13.2 H RBC Cancelled 3.55 L Hgb Cancelled 10.6 L Hct Cancelled 31.8 L MCV Cancelled 90 D MCH Cancelled 29.7 MCHC Cancelled 33.2 RDW Cancelled 13.4 Plt Count Cancelled 239 Seg Neutrophils % Cancelled 77.7 Sodium 140.7 Potassium 4.1 Chloride 108 H Carbon Dioxide 22 Anion Gap 11 BUN 27 H Creatinine 0.74 Est GFR ( Amer) > 60 Est GFR (Non-Af Amer) Glucose 107 Calcium 10.0 01/02/20 01/02/20 01/02/20 04:55 04:55 06:30 WBC Cancelled 13.6 H RBC Cancelled 3.57 L Hgb Cancelled 10.6 L Hct Cancelled 34.0 L MCV Cancelled 95 D MCH Cancelled 29.8 MCHC Cancelled 31.2 L RDW Cancelled 15.1 H Plt Count Cancelled 225 Seg Neutrophils % Sodium Cancelled Potassium Cancelled Chloride Cancelled Carbon Dioxide Cancelled Anion Gap Cancelled BUN Cancelled Creatinine Cancelled Est GFR ( Amer) Cancelled Est GFR (Non-Af Amer) Cancelled Glucose Cancelled Calcium Cancelled 01/02/20 06:30 WBC RBC Hgb Hct MCV MCH MCHC RDW Plt Count Seg Neutrophils % Sodium 138.5 Potassium 5.7 H D Chloride 104 Carbon Dioxide 7 L* D Anion Gap 28 H BUN 23 H Creatinine 0.97 Est GFR ( Amer) > 60 Est GFR (Non-Af Amer) Glucose 582 H* Calcium 9.9 Impressions: Chest X-Ray 01/01/20 00:00 IMPRESSION: Right lower lobe infiltrate consistent with pneumonia. Small right-sided pleural effusion. Head CT 01/01/20 10:40 IMPRESSION: NORMAL BRAIN CT WITHOUT CONTRAST. EVIDENCE OF ACUTE STROKE: NO. Assessment and Plan - Diagnosis (1) Acute kidney injury Is this a current diagnosis for this admission?: Yes (2) DKA (diabetic ketoacidoses) Qualifiers: Diabetes mellitus type: other specified (including DON) Diabetes mellitus complication detail: without coma Qualified Code(s): E13.10 - Other specified diabetes mellitus with ketoacidosis without coma Is this a current diagnosis for this admission?: Yes (3) Diabetes mellitus Is this a current diagnosis for this admission?: Yes (4) Hyperkalemia Is this a current diagnosis for this admission?: Yes (5) Leukocytosis Is this a current diagnosis for this admission?: Yes (6) Volume depletion Is this a current diagnosis for this admission?: Yes - Plan Summary Summary: Assessment and Plan (1) DKA (diabetic ketoacidoses) Initially resolved yesterday with insulin drip and IV fluids. She is back in DKA today. Restart insulin drip. DKA protocol. (2) Hyperkalemia Due to insulin deficiency. Resolved. Monitor potassium levels. (3) Acute kidney injury Resolved. Monitor renal function. (4) Volume depletion Improved with IV fluids. (5) Leukocytosis Due to pneumonia. Start IV Rocephin and IV azithromycin. (6) Diabetes mellitus Hemoglobin A1c 10.1 (6) Right lower lobe pneumonia Antibiotics as above - Time Anticipated Discharge Disposition: Home, Self Care Anticipated Discharge Timeframe: within 72 hours
[2020-01-02 12:51] LABS: BLOOD UREA NITROGEN 22 mg/dL (7-20); CALCIUM 9.5 mg/dL (8.4-10.2); POTASSIUM 4.9 mmol/L (3.6-5.0)
[2020-01-02 12:58] LABS: CHLORIDE 111 mmol/L (98-107)
[2020-01-02 13:05] LABS: ANION GAP 27 (5-19)
[2020-01-02 13:08] LABS: CARBON DIOXIDE 6 mmol/L (22-30); GLUCOSE 476 mg/dL (75-110)
[2020-01-02] MEDS: LEVOFLOXACIN 750 MG/D5W RTU 750 MG/150 ML RTUPB IV SCH (16:27)
[2020-01-02 17:36] LABS: ANION GAP 9 (5-19); BLOOD UREA NITROGEN 18 mg/dL (7-20); CALCIUM 9.3 mg/dL (8.4-10.2); CHLORIDE 115 mmol/L (98-107); GLUCOSE 136 mg/dL (75-110)
[2020-01-02 17:39] LABS: CARBON DIOXIDE 20 mmol/L (22-30); POTASSIUM 3.7 mmol/L (3.6-5.0)
[2020-01-02] MEDS: ACETAMINOPHEN 325 MG TABLET PO PRN (18:05)
[2020-01-02] MEDS: POTASSI CL 40 MEQ/NS 1L 1,000 ML IV PRN (18:07)
[2020-01-02] MEDS: VANCOMYCIN HCL 1,000 MG in DEXTROSE 5%-WATER 250 ML IV SCH (20:09)
[2020-01-02] MEDS: INSULIN LISPRO 100 UNIT/ML 3 ML VIAL SUBCUT SCH (21:22)
[2020-01-03] MEDS: POTASSI CL 40 MEQ/NS 1L 1,000 ML IV PRN ×3 (02:40→20:46)
[2020-01-03 04:17] LABS: ANION GAP 11 (5-19); BLOOD UREA NITROGEN 11 mg/dL (7-20); CALCIUM 9.8 mg/dL (8.4-10.2); CARBON DIOXIDE 22 mmol/L (22-30); CHLORIDE 110 mmol/L (98-107); GLUCOSE 123 mg/dL (75-110); POTASSIUM 4.1 mmol/L (3.6-5.0)
[2020-01-03 07:33] LABS: ANION GAP 17 (5-19); BLOOD UREA NITROGEN 12 mg/dL (7-20); CALCIUM 9.6 mg/dL (8.4-10.2); CARBON DIOXIDE 17 mmol/L (22-30); CHLORIDE 107 mmol/L (98-107); GLUCOSE 288 mg/dL (75-110); POTASSIUM 4.6 mmol/L (3.6-5.0)
[2020-01-03] MEDS: INSULIN, REGULAR 100 UNIT/100 ML NORMAL SALINE IV PRN ×2 (08:15)
[2020-01-03] MEDS: INSULIN LISPRO 100 UNIT/ML 3 ML VIAL SUBCUT SCH ×4 (08:51→22:04)
[2020-01-03] MEDS: HEPARIN SOD (PORCINE) 5,000 UNIT/ML 1 ML VIAL SUBCUT SCH ×2 (10:03→22:14)
[2020-01-03] MEDS: LEVOFLOXACIN 750 MG/D5W RTU 750 MG/150 ML RTUPB IV SCH (10:03)
[2020-01-03] MEDS: FAMOTIDINE 20 MG TABLET PO SCH ×2 (10:05→22:18)
--- NOTE | 2020-01-03 14:43 | PDOC PROGRESS REPORT ---
Subjective Date:: 01/03/20 Subjective:: Patient was seen and examined. Daughter at bedside. DKA resolved. She is still on low-dose insulin drip to prevent her from going back into DKA. She still lethargic. CT of the head yesterday was negative. Reason For Visit: DIABETIC KETOACIDOSIS,ACUTE KIDNEY INJURY,HYPERKAL Physical Exam Vital Signs: Temp Pulse Resp BP Pulse Ox 98.9 F 100 20 156/64 H 98 01/03/20 11:56 01/03/20 11:56 01/03/20 11:56 01/03/20 11:56 01/03/20 11:56 Intake & Output 01/02/20 01/03/20 01/04/20 06:59 06:59 06:59 Intake Total 1487 1300 1171 Output Total 1510 Balance -23 1300 1171 Weight 159 lb 6.307 oz 159 lb 9.835 oz Exam: GENERAL APPEARANCE: Lethargic, arousable with voice, in no acute distress HEENT: Normocephalic and atraumatic. No scleral icterus. Dry oral mucosa NECK: Supple. No lymphadenopathy or tenderness. No JVD CHEST: Symmetric. Nontender to palpation. LUNGS: Clear with good air entry bilaterally. Has no Kussmaul's breathing. No wheezing or crackles appreciated HEART: Regular rate and rhythm with normal S1 and S2. No murmurs, gallops, or rubs. ABDOMEN: soft, active bowel sounds, no direct or rebound tenderness. No organomegaly detected. EXTREMITIES: No cyanosis, clubbing, or edema. MUSCULOSKELETAL: No deformity, atrophy or swelling noted SKIN: Warm, dry, and well perfused. No lesions or rashes are noted. NEUROLOGIC: No focal neurologic deficits detected. Results Laboratory Results: 01/02/20 06:30 01/03/20 06:45 01/02/20 01/03/20 01/03/20 17:07 03:29 06:45 Sodium 143.6 142.8 140.9 Potassium 3.7 D 4.1 4.6 Chloride 115 H 110 H 107 Carbon Dioxide 20 L D 22 17 L Anion Gap 9 11 17 BUN 18 11 12 Creatinine 0.72 0.61 0.59 Est GFR ( Amer) > 60 > 60 > 60 Glucose 136 H 123 H 288 H Calcium 9.3 9.8 9.6 01/01/20 19:25 Clean Catch Midstream Urine Culture - Final NO GROWTH 2 DAYS Impressions: Chest X-Ray 01/01/20 00:00 IMPRESSION: Right lower lobe infiltrate consistent with pneumonia. Small right-sided pleural effusion. Head CT 01/01/20 10:40 IMPRESSION: NORMAL BRAIN CT WITHOUT CONTRAST. EVIDENCE OF ACUTE STROKE: NO. Assessment and Plan - Diagnosis (1) Acute kidney injury Is this a current diagnosis for this admission?: Yes (2) DKA (diabetic ketoacidoses) Qualifiers: Diabetes mellitus type: other specified (including DON) Diabetes mellitus complication detail: without coma Qualified Code(s): E13.10 - Other specified diabetes mellitus with ketoacidosis without coma Is this a current diagnosis for this admission?: Yes (3) Diabetes mellitus Is this a current diagnosis for this admission?: Yes (4) Hyperkalemia Is this a current diagnosis for this admission?: Yes (5) Leukocytosis Is this a current diagnosis for this admission?: Yes (6) Volume depletion Is this a current diagnosis for this admission?: Yes - Plan Summary Summary: Assessment and Plan (1) DKA (diabetic ketoacidoses) Initially resolved 01/02/2020 with insulin drip and IV fluids. She is back in DKA 01/03/2020. We are restarted insulin drip per DKA protocol. DKA again resolved. She still on low-dose insulin drip. She still lethargic. CT scan of the brain unremarkable yesterday. Will check MRI of the brain today urgently. (2) Hyperkalemia Due to insulin deficiency. Resolved. Monitor potassium levels. (3) Acute kidney injury Resolved. Monitor renal function. (4) Volume depletion Improved with IV fluids. (5) Leukocytosis Due to pneumonia. Continue IV Rocephin and IV azithromycin. (6) Diabetes mellitus Hemoglobin A1c 10.1 (6) Right lower lobe pneumonia Antibiotics as above Discussed with the daughter at bedside. - Time Anticipated Discharge Disposition: Home, Self Care Anticipated Discharge Timeframe: within 72 hours
[2020-01-03 16:23] LABS: ANION GAP 6 (5-19); BLOOD UREA NITROGEN 9 mg/dL (7-20); CALCIUM 9.1 mg/dL (8.4-10.2); CARBON DIOXIDE 26 mmol/L (22-30); CHLORIDE 103 mmol/L (98-107); GLUCOSE 121 mg/dL (75-110); POTASSIUM 3.7 mmol/L (3.6-5.0)
[2020-01-03 18:29] LABS: ARTERIAL BLOOD BASE EXCESS 1.1 mmol/L; ARTERIAL BLOOD FIO2 21%; ARTERIAL BLOOD H2CO3 0.84 mmol/L (1.05-1.35); ARTERIAL BLOOD HCO3 23.1 mmol/L (20-24); ARTERIAL BLOOD O2 SATURATION 96.4 % (94-98); ARTERIAL BLOOD PCO2 27.9 mmHg (35-45); ARTERIAL BLOOD PH 7.54 (7.35-7.45); ARTERIAL BLOOD PO2 73.2 mmHg (80-100); ARTERIAL BLOOD TOTAL CO2 23.9 mmol/L (21-25)
--- NOTE | 2020-01-03 22:16 | RADIOLOGY REPORT (SQ) ---
EXAM DESCRIPTION: MR BRAIN WITHOUT THEN WITH IV CONTRAST COMPLETED DATE/TME: 01/03/2020 21:48 CLINICAL HISTORY: 59 years, Female, lethargy EXAM DESCRIPTION: MRI HEAD COMBO CLINICAL HISTORY: lethargy COMPARISON: None TECHNIQUE: Multiplanar multisequence imaging of the brain including the intravenous administration of contrast. FINDINGS: Patient motion significantly limits detail on some sequences. Some sequences are nondiagnostic. There is abnormally increased enhancement of the dura overlying each frontal lobe, right to a greater extent than the left. Overlying this region there is increased enhancement of the margins of the right frontal sinus. There is poorly defined increased enhancement at the roof of the right orbit and there could be communication between the paranasal sinuses and right anterior cranial fossa. Bone detail is too limited on MR, and multiple sequences are nondiagnostic because of patient motion, which limits detail and makes this determination difficult on this exam. A small adjacent region of increased enhancement of the brain at the anterior right frontal lobe suggesting cerebritis or less likely neoplasm is suspected but no postcontrast sagittal sequence was submitted and there is partial volume artifact on coronal and axial postcontrast images in this region. There is no other evidence of acute mass, mass effect, midline shift or hemorrhage. Brain parenchymal signal is normal. IMPRESSION: Findings are concerning for meningitis and possible adjacent cerebritis. There may be communication between the right frontal sinus and right anterior cranial fossa. CT would provide greater bone detail. Neoplasm is not excluded. Follow-up is recommended.
[2020-01-03 22:27] LABS: ANION GAP 9 (5-19); BLOOD UREA NITROGEN 9 mg/dL (7-20); CALCIUM 9.1 mg/dL (8.4-10.2); CARBON DIOXIDE 24 mmol/L (22-30); CHLORIDE 99 mmol/L (98-107); GLUCOSE 194 mg/dL (75-110); POTASSIUM 3.7 mmol/L (3.6-5.0)
[2020-01-03] MEDS ORDERED: MEROPENEM 1 GM VIAL IV SCH (22:45)
[2020-01-03] MEDS ORDERED: VANCOMYCIN HCL INJ 1000 MG VIAL IV SCH (22:45)
[2020-01-03] MEDS ORDERED: VANCOMYCIN HCL INJ 1000 MG VIAL IV PRN (23:08)
[2020-01-03] MEDS ORDERED: VANCOMYCIN HCL 1,500 MG in DEXTROSE 5%-WATER 250 ML IV ONE (23:15)
[2020-01-03] MEDS ORDERED: ACYCLOVIR SODIUM 700 MG in NORMAL SALINE 100 ML IV SCH (23:30)
[2020-01-04] MEDS ORDERED: MEROPENEM 1 GM VIAL IV PRN (00:03)
[2020-01-04] MEDS ORDERED: MEROPENEM 1 GM VIAL ONE ×2 (01:00→21:11)
[2020-01-04] MEDS ORDERED: ACYCLOVIR SODIUM INJ/PF 500 MG/10 ML SDV IV ONE (01:03)
[2020-01-04] MEDS: MEROPENEM 2 GM in NORMAL SALINE 100 ML IV SCH ×3 (02:05→19:30)
[2020-01-04 04:44] LABS: HEMATOCRIT 31.1 % (36.0-47.0); HEMOGLOBIN 10.7 g/dL (12.0-15.5); MEAN CORPUSCULAR HEMOGLOBIN 30.4 pg (27.0-33.4); MEAN CORPUSCULAR HGB CONC 34.6 g/dL (32.0-36.0); PLATELET COUNT 165 10^3/uL (150-450); RED BLOOD COUNT 3.53 10^6/uL (3.72-5.28); RED CELL DISTRIBUTION WIDTH 13.6 % (11.5-14.0); WHITE BLOOD COUNT 7.6 10^3/uL (4.0-10.5)
[2020-01-04 04:50] LABS: MEAN CORPUSCULAR VOLUME 88 fl (80-97)
[2020-01-04 04:53] LABS: ANION GAP 7 (5-19); BLOOD UREA NITROGEN 8 mg/dL (7-20); CALCIUM 8.8 mg/dL (8.4-10.2); CARBON DIOXIDE 30 mmol/L (22-30); CHLORIDE 97 mmol/L (98-107); GLUCOSE 84 mg/dL (75-110); POTASSIUM 3.7 mmol/L (3.6-5.0)
[2020-01-04 04:55] LABS: INTERNATIONAL RATION (INR) 1.06
[2020-01-04] MEDS: INSULIN LISPRO 100 UNIT/ML 3 ML VIAL SUBCUT SCH ×4 (08:00→21:01)
[2020-01-04] MEDS: POTASSI CL 40 MEQ/NS 1L 1,000 ML IV PRN ×2 (09:25→19:13)
[2020-01-04] MEDS: HEPARIN SOD (PORCINE) 5,000 UNIT/ML 1 ML VIAL SUBCUT SCH ×2 (11:32→21:03)
[2020-01-04] MEDS: FAMOTIDINE 20 MG TABLET PO SCH ×2 (12:10→21:08)
[2020-01-04] MEDS ORDERED: KETOROLAC TROMETHAMINE INJ/PF 30 MG/1 ML SDV IV ONE (12:30)
[2020-01-04 13:03] LABS: ANION GAP 11 (5-19); BLOOD UREA NITROGEN 13 mg/dL (7-20); CALCIUM 8.7 mg/dL (8.4-10.2); CARBON DIOXIDE 25 mmol/L (22-30); CHLORIDE 92 mmol/L (98-107); GLUCOSE 388 mg/dL (75-110); POTASSIUM 4.6 mmol/L (3.6-5.0)
--- NOTE | 2020-01-04 14:22 | RADIOLOGY REPORT (SQ) ---
EXAM DESCRIPTION: LUMBAR PUNCTURE IMAGES COMPLETED DATE/TIME: 01/04/2020 1:53 pm REASON FOR STUDY: meningitis COMPARISON: 11 FLUOROSCOPY TIME: 1 minute. 4 images saved to PACS. TECHNIQUE: Fluoroscopic Guided Lumbar Puncture. LIMITATIONS: None. PROCEDURE: After written consent and assessment were obtained, the patient was brought into the fluo roscopy room and placed prone on the table. The patient's lower back was prepped in a sterile fashio n and an entry site was selected under live fluoroscopic guidance. The entry site was anesthetized wi th 1% lidocaine. A 20 gauge needle was advanced through the skin and into the thecal sac at the level of L2-L3. Opening pressure was taken, which measured 17 cm of water. After approximately 8.5 ml wa s drained, the needle was removed and a sterile bandage was placed of the site. Specimens were sent to the lab for testing. A fluoroscopic spot image was saved to PACS confirming level access. FINDINGS: Clear CSF. IMPRESSION: Lumbar puncture under fluoroscopy. No immediate complication. COMMENT: Patient medication list reviewed: Yes- Quality ID# [id number]:Eligible professional attests to doc umenting in the medical record they obtained, updated, or reviewed the patient's current medications. . Quality ID 145: Final reports for procedures using fluoroscopy that document radiation exposure nahum jesus, or exposure time and number of fluorographic images (if radiation exposure indices are not avail able) TECHNICAL DOCUMENTATION: JOB ID: [id number] 2010 [employer]- All Rights Reserved Reading location - IP/workstation name: [email or web address] [id number]
[2020-01-04] MEDS: ACYCLOVIR SODIUM 700 MG in NORMAL SALINE 100 ML IV SCH ×2 (14:33→19:20)
--- NOTE | 2020-01-04 14:47 | PDOC PROGRESS REPORT ---
Subjective Date:: 01/04/20 Subjective:: Patient was seen and examined. Daughter at bedside. DKA resolved. She is still on low-dose insulin drip to prevent her from going back into DKA. She still lethargic. MRI suspicious for meningitis. Lumbar puncture at bedside was not successful. Patient was sent for lumbar puncture under fluoroscopy. Her mental status is better today. Antibiotics was switched to IV vancomycin and meropenem last night. Reason For Visit: DIABETIC KETOACIDOSIS,ACUTE KIDNEY INJURY,HYPERKAL Physical Exam Vital Signs: Temp Pulse Resp BP Pulse Ox 98.8 F 89 18 183/77 H 96 01/04/20 08:29 01/04/20 08:29 01/04/20 08:29 01/04/20 08:29 01/04/20 08:29 Intake & Output 01/03/20 01/04/20 01/05/20 06:59 06:59 06:59 Intake Total 1300 3571 16 Output Total 600 Balance 1300 2971 16 Weight 159 lb 9.835 oz Exam: GENERAL APPEARANCE: Lethargic, arousable with voice, in no acute distress HEENT: Normocephalic and atraumatic. No scleral icterus. Dry oral mucosa NECK: Supple. No lymphadenopathy or tenderness. No JVD CHEST: Symmetric. Nontender to palpation. LUNGS: Clear with good air entry bilaterally. Has no Kussmaul's breathing. No wheezing or crackles appreciated HEART: Regular rate and rhythm with normal S1 and S2. No murmurs, gallops, or rubs. ABDOMEN: soft, active bowel sounds, no direct or rebound tenderness. No organomegaly detected. EXTREMITIES: No cyanosis, clubbing, or edema. MUSCULOSKELETAL: No deformity, atrophy or swelling noted SKIN: Warm, dry, and well perfused. No lesions or rashes are noted. NEUROLOGIC: No focal neurologic deficits detected. Results Laboratory Results: 01/04/20 04:11 01/04/20 12:24 01/03/20 01/03/20 01/03/20 15:54 15:54 15:54 WBC RBC Hgb Hct MCV MCH MCHC RDW Plt Count Carbonic Acid HCO3/H2CO3 Ratio ABG pH ABG pCO2 ABG pO2 ABG HCO3 ABG O2 Saturation ABG Base Excess FiO2 Sodium 135.1 L Potassium 3.7 Chloride 103 Carbon Dioxide 26 Anion Gap 6 BUN 9 Creatinine 0.50 L Est GFR ( Amer) > 60 Glucose 121 H Calcium 9.1 Ammonia < 8.7 L TSH 1.06 01/03/20 01/03/20 01/04/20 18:15 21:40 04:11 WBC 7.6 RBC 3.53 L Hgb 10.7 L Hct 31.1 L MCV 88 D MCH 30.4 MCHC 34.6 RDW 13.6 Plt Count 165 Carbonic Acid 0.84 L HCO3/H2CO3 Ratio 27:1 ABG pH 7.54 H ABG pCO2 27.9 L ABG pO2 73.2 L ABG HCO3 23.1 ABG O2 Saturation 96.4 ABG Base Excess 1.1 FiO2 21% Sodium 131.9 L Potassium 3.7 Chloride 99 Carbon Dioxide 24 Anion Gap 9 BUN 9 Creatinine 0.52 Est GFR ( Amer) > 60 Glucose 194 H Calcium 9.1 Ammonia TSH 01/04/20 01/04/20 04:11 12:24 WBC RBC Hgb Hct MCV MCH MCHC RDW Plt Count Carbonic Acid HCO3/H2CO3 Ratio ABG pH ABG pCO2 ABG pO2 ABG HCO3 ABG O2 Saturation ABG Base Excess FiO2 Sodium 133.5 L 127.7 L Potassium 3.7 4.6 Chloride 97 L 92 L Carbon Dioxide 30 25 Anion Gap 7 11 BUN 8 13 Creatinine 0.49 L 0.50 L Est GFR ( Amer) > 60 > 60 Glucose 84 388 H Calcium 8.8 8.7 Ammonia TSH Impressions: Chest X-Ray 01/01/20 00:00 IMPRESSION: Right lower lobe infiltrate consistent with pneumonia. Small right-sided pleural effusion. Head CT 01/01/20 10:40 IMPRESSION: NORMAL BRAIN CT WITHOUT CONTRAST. EVIDENCE OF ACUTE STROKE: NO. Head MRI 01/03/20 14:40 IMPRESSION: Findings are concerning for meningitis and possible adjacent cerebritis. There may be communication between the right frontal sinus and right anterior cranial fossa. CT would provide greater bone detail. Neoplasm is not excluded. Follow-up is recommended. Lumbar Puncture 01/04/20 00:00 IMPRESSION: Lumbar puncture under fluoroscopy. No immediate complication. Assessment and Plan - Diagnosis (1) Acute kidney injury Is this a current diagnosis for this admission?: Yes (2) DKA (diabetic ketoacidoses) Qualifiers: Diabetes mellitus type: other specified (including DON) Diabetes mellitus complication detail: without coma Qualified Code(s): E13.10 - Other specified diabetes mellitus with ketoacidosis without coma Is this a current diagnosis for this admission?: Yes (3) Diabetes mellitus Is this a current diagnosis for this admission?: Yes (4) Hyperkalemia Is this a current diagnosis for this admission?: Yes (5) Leukocytosis Is this a current diagnosis for this admission?: Yes (6) Volume depletion Is this a current diagnosis for this admission?: Yes (7) Meningitis Is this a current diagnosis for this admission?: Yes - Plan Summary Summary: Assessment and Plan (1) DKA (diabetic ketoacidoses) Initially resolved 01/02/2020 with insulin drip and IV fluids. She is back in DKA 01/03/2020. We are restarted insulin drip per DKA protocol. DKA again resolved. She still on low-dose insulin drip. (2) Hyperkalemia Due to insulin deficiency. Resolved. Monitor potassium levels. (3) Acute kidney injury Resolved. Monitor renal function. (4) Volume depletion Improved with IV fluids. (5) Leukocytosis Due to pneumonia and meningitis. She was switched to IV vancomycin and meropenem. (6) Diabetes mellitus Hemoglobin A1c 10.1 (6) Right lower lobe pneumonia Antibiotics as above (7) Meningitis Continue IV vancomycin and meropenem and acyclovir. Follow CSF culture results. Discussed with the daughter at bedside. - Time Anticipated Discharge Disposition: Home, Self Care Anticipated Discharge Timeframe: within 72 hours
[2020-01-04 15:14] LABS: GLUCOSE,CSF 141 mg/dL (40-70); PROTEIN,CSF 62 mg/dL (12-60)
[2020-01-04 15:41] LABS: CSF TUBE NUMBER 3
[2020-01-04 15:42] LABS: APPEARANCE ALL TUBES CLEAR; COLOR TUBE 1 PINK; COLOR TUBE 2 COLORLESS; COLOR TUBE 3 COLORLESS; COLOR TUBE 4 COLORLESS
[2020-01-04 15:43] LABS: RED BLOOD CELL,CSF 72 /uL (0-10)
[2020-01-04 15:44] LABS: WHITE BLOOD CELL,CSF 2 /uL (0-5)
[2020-01-04] MEDS: VANCOMYCIN HCL 1,000 MG in DEXTROSE 5%-WATER 250 ML IV SCH (15:58)
[2020-01-04] MEDS ORDERED: BUPROPION HCL 150 MG PO SCH (18:00)
[2020-01-04] MEDS: METOCLOPRAMIDE HCL 10 MG TABLET PO SCH ×2 (19:12→21:08)
[2020-01-04] MEDS: ALPRAZOLAM 0.5 MG TABLET PO SCH (19:12)
[2020-01-04] MEDS: GABAPENTIN 100 MG CAPSULE PO SCH ×2 (19:13→21:08)
[2020-01-04] MEDS: IBUPROFEN 800 MG TABLET PO SCH (19:13)
[2020-01-04] MEDS: MONTELUKAST SODIUM 10 MG TABLET PO SCH (21:08)
[2020-01-04] MEDS: BUPROPION HCL 100 MG TABLET PO SCH (21:08)
[2020-01-04] MEDS: INSULIN, REGULAR 100 UNIT/100 ML NORMAL SALINE IV PRN ×2 (21:20)
[2020-01-04] MEDS ORDERED: ACYCLOVIR SODIUM INJ/PF 500 MG/10 ML SDV IV SCH (23:00)
[2020-01-05] MEDS: ACYCLOVIR SODIUM 700 MG in NORMAL SALINE 100 ML IV SCH ×3 (01:51→18:08)
[2020-01-05] MEDS: MEROPENEM 2 GM in NORMAL SALINE 100 ML IV SCH ×3 (03:00→17:18)
[2020-01-05] MEDS: VANCOMYCIN HCL 1,000 MG in DEXTROSE 5%-WATER 250 ML IV SCH ×2 (03:46→14:30)
[2020-01-05] MEDS: BUPROPION HCL 100 MG TABLET PO SCH ×3 (05:33→22:57)
[2020-01-05 08:11] LABS: HEMATOCRIT 32.8 % (36.0-47.0); MEAN CORPUSCULAR HEMOGLOBIN 29.7 pg (27.0-33.4); MEAN CORPUSCULAR HGB CONC 33.5 g/dL (32.0-36.0); MEAN CORPUSCULAR VOLUME 89 fl (80-97); PLATELET COUNT 218 10^3/uL (150-450); RED CELL DISTRIBUTION WIDTH 13.6 % (11.5-14.0); WHITE BLOOD COUNT 7.6 10^3/uL (4.0-10.5)
[2020-01-05 08:31] LABS: ANION GAP 6 (5-19); BLOOD UREA NITROGEN 12 mg/dL (7-20); CALCIUM 9.1 mg/dL (8.4-10.2); CARBON DIOXIDE 31 mmol/L (22-30); CHLORIDE 101 mmol/L (98-107)
[2020-01-05 08:49] LABS: GLUCOSE 37 mg/dL (75-110)
[2020-01-05 09:06] LABS: POTASSIUM 3.6 mmol/L (3.6-5.0)
[2020-01-05] MEDS: ANASTROZOLE 1 MG TABLET PO SCH (09:13)
[2020-01-05] MEDS: LOSARTAN POTASSIUM 25 MG TABLET PO SCH (09:13)
[2020-01-05] MEDS: MULTIVITAMIN TABLET PO SCH (09:13)
[2020-01-05] MEDS: METOCLOPRAMIDE HCL 10 MG TABLET PO SCH ×4 (09:13→22:58)
[2020-01-05] MEDS: FAMOTIDINE 20 MG TABLET PO SCH ×2 (09:15→22:57)
[2020-01-05] MEDS: ALPRAZOLAM 0.5 MG TABLET PO SCH ×3 (09:15→17:18)
[2020-01-05] MEDS: GABAPENTIN 100 MG CAPSULE PO SCH ×4 (09:15→22:57)
[2020-01-05] MEDS: HEPARIN SOD (PORCINE) 5,000 UNIT/ML 1 ML VIAL SUBCUT SCH ×2 (09:15→22:57)
[2020-01-05] MEDS: IBUPROFEN 800 MG TABLET PO SCH ×3 (09:16→17:18)
[2020-01-05] MEDS: FLUOXETINE HCL 20 MG CAPSULE PO SCH (09:16)
[2020-01-05] MEDS: INSULIN LISPRO 100 UNIT/ML 3 ML VIAL SUBCUT SCH ×5 (09:22→22:56)
[2020-01-05] MEDS ORDERED: HYDROXYZINE PAMOATE 50 MG CAPSULE PO SCH (10:00)
[2020-01-05] MEDS: POTASSI CL 40 MEQ/NS 1L 1,000 ML IV PRN (10:12)
--- NOTE | 2020-01-05 10:55 | PDOC PROGRESS REPORT ---
Subjective Date:: 01/05/20 Subjective:: Patient was seen and examined. Mental status is much better. She is tolerating diet. He is on insulin drip and she was severely hypoglycemic this morning. She does not think she has mental capacity at the moment to approach her insulin pump. Reason For Visit: DIABETIC KETOACIDOSIS,ACUTE KIDNEY INJURY,HYPERKAL Physical Exam Vital Signs: Temp Pulse Resp BP Pulse Ox 97.9 F 87 20 148/62 H 97 01/05/20 07:37 01/05/20 07:37 01/05/20 07:37 01/05/20 07:37 01/05/20 07:37 Intake & Output 01/04/20 01/05/20 01/06/20 06:59 06:59 06:59 Intake Total 3571 3367 Output Total 600 3050 Balance 2971 317 Weight 162 lb 7.691 oz Exam: GENERAL APPEARANCE: Lethargic, arousable with voice, in no acute distress HEENT: Normocephalic and atraumatic. No scleral icterus. Dry oral mucosa NECK: Supple. No lymphadenopathy or tenderness. No JVD CHEST: Symmetric. Nontender to palpation. LUNGS: Clear with good air entry bilaterally. Has no Kussmaul's breathing. No wheezing or crackles appreciated HEART: Regular rate and rhythm with normal S1 and S2. No murmurs, gallops, or rubs. ABDOMEN: soft, active bowel sounds, no direct or rebound tenderness. No organomegaly detected. EXTREMITIES: No cyanosis, clubbing, or edema. MUSCULOSKELETAL: No deformity, atrophy or swelling noted SKIN: Warm, dry, and well perfused. No lesions or rashes are noted. NEUROLOGIC: No focal neurologic deficits detected. Results Laboratory Results: 01/05/20 07:40 01/05/20 07:40 01/04/20 01/04/20 01/04/20 12:24 13:34 13:34 WBC RBC Hgb Hct MCV MCH MCHC RDW Plt Count Sodium 127.7 L Potassium 4.6 Chloride 92 L Carbon Dioxide 25 Anion Gap 11 BUN 13 Creatinine 0.50 L Est GFR ( Amer) > 60 Glucose 388 H Calcium 8.7 Fluid Tube Number 3 CSF Volume 8.0 CSF Appearance CLEAR CSF WBC 2 CSF RBC 72 CSF Color (1) PINK CSF Color (2) COLORLESS CSF Color (3) COLORLESS CSF Color (4) COLORLESS CSF Glucose 141 H CSF Total Protein 62 H 01/04/20 01/05/20 01/05/20 18:46 07:40 07:40 WBC 7.6 RBC 3.70 L Hgb 11.0 L Hct 32.8 L MCV 89 MCH 29.7 MCHC 33.5 RDW 13.6 Plt Count 218 Sodium 137.6 Potassium 3.6 D Chloride 101 Carbon Dioxide 31 H Anion Gap 6 BUN 12 Creatinine 0.54 Est GFR ( Amer) > 60 Glucose 390 H 37 L* Calcium 9.1 Fluid Tube Number CSF Volume CSF Appearance CSF WBC CSF RBC CSF Color (1) CSF Color (2) CSF Color (3) CSF Color (4) CSF Glucose CSF Total Protein Impressions: Chest X-Ray 01/01/20 00:00 IMPRESSION: Right lower lobe infiltrate consistent with pneumonia. Small right-sided pleural effusion. Head CT 01/01/20 10:40 IMPRESSION: NORMAL BRAIN CT WITHOUT CONTRAST. EVIDENCE OF ACUTE STROKE: NO. Head MRI 01/03/20 14:40 IMPRESSION: Findings are concerning for meningitis and possible adjacent cerebritis. There may be communication between the right frontal sinus and right anterior cranial fossa. CT would provide greater bone detail. Neoplasm is not excluded. Follow-up is recommended. Lumbar Puncture 01/04/20 00:00 IMPRESSION: Lumbar puncture under fluoroscopy. No immediate complication. Assessment and Plan - Diagnosis (1) Acute kidney injury Is this a current diagnosis for this admission?: Yes (2) DKA (diabetic ketoacidoses) Qualifiers: Diabetes mellitus type: other specified (including DON) Diabetes mellitus complication detail: without coma Qualified Code(s): E13.10 - Other specified diabetes mellitus with ketoacidosis without coma Is this a current diagnosis for this admission?: Yes (3) Diabetes mellitus Is this a current diagnosis for this admission?: Yes (4) Hyperkalemia Is this a current diagnosis for this admission?: Yes (5) Leukocytosis Is this a current diagnosis for this admission?: Yes (6) Volume depletion Is this a current diagnosis for this admission?: Yes (7) Meningitis Is this a current diagnosis for this admission?: Yes - Plan Summary Summary: Assessment and Plan (1) DKA (diabetic ketoacidoses) DKA is resolved. She was on low-dose insulin drip. She is severely hyperglycemic this morning. Stop the drip and start subcu insulin. (2) Hyperkalemia Due to insulin deficiency. Resolved. Monitor potassium levels. (3) Acute kidney injury Resolved. Monitor renal function. (4) Volume depletion Improved with IV fluids. (5) Leukocytosis Resolved. Due to pneumonia and meningitis. She was switched to IV vancomycin and meropenem. (6) Diabetes mellitus Hemoglobin A1c 10.1 (6) Right lower lobe pneumonia Antibiotics as above (7) Meningitis Continue IV vancomycin and meropenem and acyclovir. Follow CSF culture results. - Time Anticipated Discharge Disposition: Home, Self Care Anticipated Discharge Timeframe: within 72 hours
[2020-01-05] MEDS ORDERED: INSULIN GLARGINE,HUM.REC.ANLOG 1,000 UNIT/10 ML VIAL SUBCUT SCH (22:00)
[2020-01-05] MEDS: MONTELUKAST SODIUM 10 MG TABLET PO SCH (22:57)
[2020-01-06] MEDS: MEROPENEM 2 GM in NORMAL SALINE 100 ML IV SCH ×3 (01:21→20:16)
[2020-01-06] MEDS: ACYCLOVIR SODIUM 700 MG in NORMAL SALINE 100 ML IV SCH ×3 (01:56→21:01)
[2020-01-06] MEDS: POTASSI CL 40 MEQ/NS 1L 1,000 ML IV PRN ×2 (01:56→15:00)
[2020-01-06] MEDS: VANCOMYCIN HCL 1,000 MG in DEXTROSE 5%-WATER 250 ML IV SCH ×2 (03:41→17:35)
[2020-01-06] MEDS: BUPROPION HCL 100 MG TABLET PO SCH (05:00)
[2020-01-06 06:10] LABS: HEMATOCRIT 28.7 % (36.0-47.0); HEMOGLOBIN 9.6 g/dL (12.0-15.5); MEAN CORPUSCULAR HEMOGLOBIN 30.2 pg (27.0-33.4); MEAN CORPUSCULAR HGB CONC 33.5 g/dL (32.0-36.0); MEAN CORPUSCULAR VOLUME 90 fl (80-97); PLATELET COUNT 189 10^3/uL (150-450); RED BLOOD COUNT 3.19 10^6/uL (3.72-5.28); RED CELL DISTRIBUTION WIDTH 13.9 % (11.5-14.0); WHITE BLOOD COUNT 4.7 10^3/uL (4.0-10.5)
[2020-01-06 06:21] LABS: ANION GAP 6 (5-19); BLOOD UREA NITROGEN 19 mg/dL (7-20); CALCIUM 8.8 mg/dL (8.4-10.2); CARBON DIOXIDE 27 mmol/L (22-30); CHLORIDE 105 mmol/L (98-107); GLUCOSE 283 mg/dL (75-110); POTASSIUM 4.2 mmol/L (3.6-5.0)
[2020-01-06] MEDS: INSULIN LISPRO 100 UNIT/ML 3 ML VIAL SUBCUT SCH ×5 (08:53→22:27)
[2020-01-06] MEDS: FLUOXETINE HCL 20 MG CAPSULE PO SCH (08:55)
[2020-01-06] MEDS: MULTIVITAMIN TABLET PO SCH (14:58)
[2020-01-06] MEDS: LOSARTAN POTASSIUM 25 MG TABLET PO SCH (14:58)
[2020-01-06] MEDS: ANASTROZOLE 1 MG TABLET PO SCH (14:58)
[2020-01-06] MEDS: FAMOTIDINE 20 MG TABLET PO SCH ×2 (14:58→21:02)
[2020-01-06] MEDS: IBUPROFEN 800 MG TABLET PO SCH ×3 (14:59→20:17)
[2020-01-06] MEDS: HEPARIN SOD (PORCINE) 5,000 UNIT/ML 1 ML VIAL SUBCUT SCH ×2 (15:00→21:02)
--- NOTE | 2020-01-06 15:05 | PDOC PROGRESS REPORT ---
Subjective Date:: 01/06/20 Subjective:: Patient was seen and examined. He is slightly lethargic today. Apparently her home medications were reconciled wrongly. Especially her sedating medications. This included hydroxyzine, Xanax, gabapentin and Wellbutrin. Discussed with the daughter and we will hold these medications for today and will restart them at the normal doses tomorrow. Reason For Visit: DIABETIC KETOACIDOSIS,ACUTE KIDNEY INJURY,HYPERKAL Physical Exam Vital Signs: Temp Pulse Resp BP Pulse Ox 98.1 F 100 18 146/56 H 97 01/06/20 12:22 01/06/20 12:22 01/06/20 12:22 01/06/20 12:22 01/06/20 12:22 Intake & Output 01/05/20 01/06/20 01/07/20 06:59 06:59 06:59 Intake Total 3367 2366 480 Output Total 3050 0 800 Balance 317 2366 -320 Weight 162 lb 7.691 oz 173 lb 4.533 oz Exam: GENERAL APPEARANCE: Lethargic, arousable with voice, in no acute distress HEENT: Normocephalic and atraumatic. No scleral icterus. Dry oral mucosa NECK: Supple. No lymphadenopathy or tenderness. No JVD CHEST: Symmetric. Nontender to palpation. LUNGS: Clear with good air entry bilaterally. Has no Kussmaul's breathing. No wheezing or crackles appreciated HEART: Regular rate and rhythm with normal S1 and S2. No murmurs, gallops, or rubs. ABDOMEN: soft, active bowel sounds, no direct or rebound tenderness. No organomegaly detected. EXTREMITIES: No cyanosis, clubbing, or edema. MUSCULOSKELETAL: No deformity, atrophy or swelling noted SKIN: Warm, dry, and well perfused. No lesions or rashes are noted. NEUROLOGIC: No focal neurologic deficits detected. Results Laboratory Results: 01/06/20 05:13 01/06/20 05:13 01/06/20 01/06/20 05:13 05:13 WBC 4.7 RBC 3.19 L Hgb 9.6 L Hct 28.7 L MCV 90 MCH 30.2 MCHC 33.5 RDW 13.9 Plt Count 189 Sodium 137.7 Potassium 4.2 Chloride 105 Carbon Dioxide 27 Anion Gap 6 BUN 19 Creatinine 0.67 Est GFR ( Amer) > 60 Glucose 283 H Calcium 8.8 01/04/20 13:39 Cerebral Spinal Fluid - Csf Gram Stain - Final Impressions: Chest X-Ray 01/01/20 00:00 IMPRESSION: Right lower lobe infiltrate consistent with pneumonia. Small right-sided pleural effusion. Head CT 01/01/20 10:40 IMPRESSION: NORMAL BRAIN CT WITHOUT CONTRAST. EVIDENCE OF ACUTE STROKE: NO. Head MRI 01/03/20 14:40 IMPRESSION: Findings are concerning for meningitis and possible adjacent cerebritis. There may be communication between the right frontal sinus and right anterior cranial fossa. CT would provide greater bone detail. Neoplasm is not excluded. Follow-up is recommended. Lumbar Puncture 01/04/20 00:00 IMPRESSION: Lumbar puncture under fluoroscopy. No immediate complication. Assessment and Plan - Diagnosis (1) Acute kidney injury Is this a current diagnosis for this admission?: Yes (2) DKA (diabetic ketoacidoses) Qualifiers: Diabetes mellitus type: other specified (including DON) Diabetes mellitus complication detail: without coma Qualified Code(s): E13.10 - Other specified diabetes mellitus with ketoacidosis without coma Is this a current diagnosis for this admission?: Yes (3) Diabetes mellitus Is this a current diagnosis for this admission?: Yes (4) Hyperkalemia Is this a current diagnosis for this admission?: Yes (5) Leukocytosis Is this a current diagnosis for this admission?: Yes (6) Volume depletion Is this a current diagnosis for this admission?: Yes (7) Meningitis Is this a current diagnosis for this admission?: Yes - Plan Summary Summary: Assessment and Plan (1) DKA (diabetic ketoacidoses) DKA is resolved. Slightly hyperglycemic. Will increase Lantus dose and will start premeal Humalog. (2) Hyperkalemia Due to insulin deficiency. Resolved. Monitor potassium levels. (3) Acute kidney injury Resolved. Monitor renal function. (4) Volume depletion Improved with IV fluids. (5) Leukocytosis Resolved. Due to pneumonia and meningitis. She was switched to IV vancomycin and meropenem. (6) Diabetes mellitus Hemoglobin A1c 10.1 (6) Right lower lobe pneumonia Antibiotics as above (7) Meningitis Continue IV vancomycin and meropenem and acyclovir. Follow CSF culture results. - Time Anticipated Discharge Disposition: Home, Self Care Anticipated Discharge Timeframe: within 72 hours
[2020-01-06 15:25] LABS: VANCOMYCIN,TROUGH 10.9 ug/mL (5.0-20.0)
[2020-01-06] MEDS: MONTELUKAST SODIUM 10 MG TABLET PO SCH (21:02)
[2020-01-06] MEDS ORDERED: INSULIN GLARGINE,HUM.REC.ANLOG 1,000 UNIT/10 ML VIAL (PYX) SUBCUT ONE (22:00)
[2020-01-07] MEDS ORDERED: MEROPENEM 1 GM VIAL ONE (01:01)
[2020-01-07] MEDS: ACYCLOVIR SODIUM 700 MG in NORMAL SALINE 100 ML IV SCH ×3 (01:03→20:11)
[2020-01-07] MEDS: MEROPENEM 2 GM in NORMAL SALINE 100 ML IV SCH ×3 (02:09→20:41)
[2020-01-07] MEDS: VANCOMYCIN HCL 1,000 MG in DEXTROSE 5%-WATER 250 ML IV SCH (02:59)
[2020-01-07] MEDS: INSULIN LISPRO 100 UNIT/ML 3 ML VIAL SUBCUT SCH ×7 (09:27→21:39)
[2020-01-07] MEDS: MULTIVITAMIN TABLET PO SCH (09:29)
[2020-01-07] MEDS: LOSARTAN POTASSIUM 25 MG TABLET PO SCH (09:29)
[2020-01-07] MEDS: FLUOXETINE HCL 20 MG CAPSULE PO SCH (09:29)
[2020-01-07] MEDS: ANASTROZOLE 1 MG TABLET PO SCH (09:29)
[2020-01-07] MEDS: IBUPROFEN 800 MG TABLET PO SCH ×3 (09:29→18:10)
[2020-01-07] MEDS: FAMOTIDINE 20 MG TABLET PO SCH ×2 (09:29→21:31)
[2020-01-07] MEDS: HEPARIN SOD (PORCINE) 5,000 UNIT/ML 1 ML VIAL SUBCUT SCH ×2 (09:30→21:31)
--- NOTE | 2020-01-07 11:46 | PDOC PROGRESS REPORT ---
Subjective Date:: 01/07/20 Subjective:: Patient was seen and examined. Much more awake and alert today. Blood glucose levels still elevated but better than prior. Reason For Visit: DIABETIC KETOACIDOSIS,ACUTE KIDNEY INJURY,HYPERKAL Physical Exam Vital Signs: Temp Pulse Resp BP Pulse Ox 97.9 F 95 16 141/50 H 97 01/07/20 08:59 01/07/20 08:01 01/07/20 08:01 01/07/20 08:01 01/07/20 08:01 Intake & Output 01/06/20 01/07/20 01/08/20 06:59 06:59 06:59 Intake Total 2366 2778 250 Output Total 0 2900 Balance 2366 -122 250 Weight 173 lb 4.533 oz 170 lb 10.205 oz Exam: GENERAL APPEARANCE: Awake and alert HEENT: Normocephalic and atraumatic. No scleral icterus. Dry oral mucosa NECK: Supple. No lymphadenopathy or tenderness. No JVD CHEST: Symmetric. Nontender to palpation. LUNGS: Clear with good air entry bilaterally. Has no Kussmaul's breathing. No wheezing or crackles appreciated HEART: Regular rate and rhythm with normal S1 and S2. No murmurs, gallops, or rubs. ABDOMEN: soft, active bowel sounds, no direct or rebound tenderness. No organomegaly detected. EXTREMITIES: No cyanosis, clubbing, or edema. MUSCULOSKELETAL: No deformity, atrophy or swelling noted SKIN: Warm, dry, and well perfused. No lesions or rashes are noted. NEUROLOGIC: No focal neurologic deficits detected. Results Laboratory Results: 01/06/20 05:13 01/06/20 05:13 01/04/20 13:39 Cerebral Spinal Fluid - Csf Gram Stain - Final 01/04/20 13:39 Cerebral Spinal Fluid - Csf CSF Culture - Final NO GROWTH 3 DAYS 01/01/20 15:40 Blood Blood Culture - Final NO GROWTH IN 5 DAYS 01/01/20 16:12 Blood Blood Culture - Final NO GROWTH IN 5 DAYS Impressions: Chest X-Ray 01/01/20 00:00 IMPRESSION: Right lower lobe infiltrate consistent with pneumonia. Small right-sided pleural effusion. Head CT 01/01/20 10:40 IMPRESSION: NORMAL BRAIN CT WITHOUT CONTRAST. EVIDENCE OF ACUTE STROKE: NO. Head MRI 01/03/20 14:40 IMPRESSION: Findings are concerning for meningitis and possible adjacent cerebritis. There may be communication between the right frontal sinus and right anterior cranial fossa. CT would provide greater bone detail. Neoplasm is not excluded. Follow-up is recommended. Lumbar Puncture 01/04/20 00:00 IMPRESSION: Lumbar puncture under fluoroscopy. No immediate complication. Assessment and Plan - Diagnosis (1) Acute kidney injury Is this a current diagnosis for this admission?: Yes (2) DKA (diabetic ketoacidoses) Qualifiers: Diabetes mellitus type: other specified (including DON) Diabetes mellitus complication detail: without coma Qualified Code(s): E13.10 - Other specified diabetes mellitus with ketoacidosis without coma Is this a current diagnosis for this admission?: Yes (3) Diabetes mellitus Is this a current diagnosis for this admission?: Yes (4) Hyperkalemia Is this a current diagnosis for this admission?: Yes (5) Leukocytosis Is this a current diagnosis for this admission?: Yes (6) Volume depletion Is this a current diagnosis for this admission?: Yes (7) Meningitis Is this a current diagnosis for this admission?: Yes - Plan Summary Summary: Assessment and Plan (1) DKA (diabetic ketoacidoses) DKA is resolved. Slightly hyperglycemic. Will increase Lantus dose 20 and will premeal Humalog to 8. (2) Hyperkalemia Due to insulin deficiency. Resolved. Monitor potassium levels. (3) Acute kidney injury Resolved. Monitor renal function. (4) Volume depletion Improved with IV fluids. (5) Leukocytosis Resolved. Due to pneumonia and meningitis. She was switched to IV vancomycin and meropenem. (6) Diabetes mellitus Hemoglobin A1c 10.1 (6) Right lower lobe pneumonia Antibiotics as above (7) Meningitis Continue IV vancomycin and meropenem and acyclovir. Follow CSF culture results. Recommend continuing antibiotics for at least total of 7 days even if the cultures are negative considering that she was on antibiotics prior to lumbar puncture. - Time Anticipated Discharge Disposition: Home, Self Care Anticipated Discharge Timeframe: within 72 hours
[2020-01-07] MEDS: VANCOMYCIN HCL 1,500 MG in DEXTROSE 5%-WATER 250 ML IV SCH (18:10)
[2020-01-07] MEDS: MONTELUKAST SODIUM 10 MG TABLET PO SCH (21:31)
[2020-01-07] MEDS: INSULIN GLARGINE,HUM.REC.ANLOG 1,000 UNIT/10 ML VIAL SUBCUT SCH (21:33)
[2020-01-07] MEDS ORDERED: INSULIN GLARGINE,HUM.REC.ANLOG 1,000 UNIT/10 ML VIAL SUBCUT SCH (22:00)
[2020-01-08] MEDS: ACYCLOVIR SODIUM 700 MG in NORMAL SALINE 100 ML IV SCH ×3 (01:00→22:52)
[2020-01-08] MEDS: MEROPENEM 2 GM in NORMAL SALINE 100 ML IV SCH ×3 (02:00→22:53)
[2020-01-08] MEDS: VANCOMYCIN HCL 1,500 MG in DEXTROSE 5%-WATER 250 ML IV SCH ×2 (05:23→17:13)
[2020-01-08] MEDS: INSULIN LISPRO 100 UNIT/ML 3 ML VIAL SUBCUT SCH ×7 (08:27→22:47)
[2020-01-08] MEDS: FLUOXETINE HCL 20 MG CAPSULE PO SCH (08:28)
[2020-01-08] MEDS: HEPARIN SOD (PORCINE) 5,000 UNIT/ML 1 ML VIAL SUBCUT SCH ×2 (09:51→22:46)
[2020-01-08] MEDS: MULTIVITAMIN TABLET PO SCH (09:52)
[2020-01-08] MEDS: FAMOTIDINE 20 MG TABLET PO SCH ×2 (09:52→22:45)
[2020-01-08] MEDS: LOSARTAN POTASSIUM 25 MG TABLET PO SCH (09:52)
[2020-01-08] MEDS: ANASTROZOLE 1 MG TABLET PO SCH (09:53)
[2020-01-08] MEDS: NORMAL SALINE 1000 ML 1,000 ML IV PRN (19:00)
--- NOTE | 2020-01-08 19:00 | PDOC PROGRESS REPORT ---
Subjective Subjective:: Per Previous Physician: "Patient is very lethargic, unable to give detailed history. History is mainly from ER signout and chart review. CHARLIE PERKINS is a 59 year old female with a history of insulin-dependent diabetes mellitus currently on insulin pump presents the ED reporting nausea, vomiting and generalized weakness. Patient's insulin pump alarm was going off signaling had blood sugar to be high ranging in the 600s. Per ED physician, patient's insulin pump was found empty and unable. Patient is very lethargic, sluggish to answer questions but is oriented to place, person and time. She is able to follow simple commands but is unable to give detailed history. She denies shortness of breath, chest pain, fever, dysuria, diarrhea, abdominal pain." 01/08/2020 Patient is alert and very clearheaded today. She is fully oriented. I believe she does not have bacterial meningitis given her CSF results and her significant improvement over the past few days. Her CSF results showed 2 WBCs and she had meningitis severe enough to affect her mentation, I would expect a much higher number than this even if she were on antibiotics prior to admission. Protein and glucose are mildly elevated and CSF and this is likely due to DKA on admission. Patient states she went into DKA because her insulin pump was not filled with insulin as she states she did not believe she needed it anymore. Patient admits to having schizophrenia on multiple psychiatric medications and follows with a psychiatrist. ID has not been consulted thus far so I have consulted them today. Patient states she is overall feeling quite well today. We can likely stop her large regimen of antibacterial/anti-viral agents Reason For Visit: DIABETIC KETOACIDOSIS,ACUTE KIDNEY INJURY,HYPERKAL Physical Exam Vital Signs: Temp Pulse Resp BP Pulse Ox 98.2 F 104 H 18 150/62 H 99 01/08/20 11:22 01/08/20 14:00 01/08/20 11:22 01/08/20 11:22 01/08/20 11:22 Intake & Output 01/07/20 01/08/20 01/09/20 06:59 06:59 06:59 Intake Total 2778 1071 766 Output Total 2900 2800 Balance -122 -1729 766 Weight 77.4 kg 75.8 kg 75.8 kg Exam: General appearance: PRESENT: no acute distress, well-developed, well-nourished, states she feels well today Head exam: PRESENT: atraumatic, normocephalic Eye exam: PRESENT: conjunctiva pink. ABSENT: scleral icterus Mouth exam: PRESENT: moist Respiratory exam: PRESENT: clear to auscultation zohreh. ABSENT: rales, rhonchi, wheezes Cardiovascular exam: PRESENT: RRR. ABSENT: diastolic murmur, rubs, systolic murmur GI/Abdominal exam: PRESENT: normal bowel sounds, soft. ABSENT: distended, guarding, mass, organolmegaly, rebound, tenderness Neurological exam: PRESENT: alert, awake, oriented to person, oriented to place, oriented to time, oriented to situation Psychiatric exam: PRESENT: Flat affect, normal mood Skin exam: PRESENT: dry, intact, warm Results Laboratory Results: 01/06/20 05:13 01/06/20 05:13 Impressions: Chest X-Ray 01/01/20 00:00 IMPRESSION: Right lower lobe infiltrate consistent with pneumonia. Small right-sided pleural effusion. Head CT 01/01/20 10:40 IMPRESSION: NORMAL BRAIN CT WITHOUT CONTRAST. EVIDENCE OF ACUTE STROKE: NO. Head MRI 01/03/20 14:40 IMPRESSION: Findings are concerning for meningitis and possible adjacent cerebritis. There may be communication between the right frontal sinus and right anterior cranial fossa. CT would provide greater bone detail. Neoplasm is not excluded. Follow-up is recommended. Lumbar Puncture 01/04/20 00:00 IMPRESSION: Lumbar puncture under fluoroscopy. No immediate complication. Assessment and Plan - Diagnosis (1) Schizophrenia Is this a current diagnosis for this admission?: Yes (2) Depression Is this a current diagnosis for this admission?: Yes (3) Anxiety Is this a current diagnosis for this admission?: Yes (4) Acute metabolic encephalopathy Is this a current diagnosis for this admission?: Yes - Plan Summary Summary: Assessment and Plan (1) DKA (diabetic ketoacidoses) Per Previous Physician: "DKA is resolved. Slightly hyperglycemic. Will increase Lantus dose 20 and will premeal Humalog to 8." Plan to restart home insulin pump prior to discharge; will offer patient refills on any insulin that she may need (2) Hyperkalemia Per Previous Physician: "Due to insulin deficiency. Resolved. Monitor potassium levels." (3) Acute kidney injury Resolved. Monitor renal function. (4) Volume depletion Improved with IV fluids. (5) Leukocytosis Per Previous Physician: "Resolved. Due to pneumonia and meningitis. She was switched to IV vancomycin and meropenem." Patient does not have bacterial meningitis (6) Diabetes mellitus Hemoglobin A1c 10.1 (6) Right lower lobe pneumonia Antibiotics as above (7) ruled out bacterial meningitis Per Previous Physician: "Continue IV vancomycin and meropenem and acyclovir. Follow CSF culture results. Recommend continuing antibiotics for at least total of 7 days even if the cultures are negative considering that she was on antibiotics prior to lumbar puncture." ID consult pending Patient does not have bacterial meningitis - Time Time Spent with patient: 25-34 minutes Medications reviewed and adjusted accordingly: Yes Anticipated Discharge Disposition: Home with Home Health Anticipated Discharge Timeframe: within 48 hours - Inpatient Certification Based on my medical assessment, after consideration of the patient's comorbidities, presenting symptoms, or acuity I expect that the services needed warrant INPATIENT care.: Yes I certify that my determination is in accordance with my understanding of Medicare's requirements for reasonable and necessary INPATIENT services [42 CFR 412.3e].: Yes Medical Necessity: Significant Comorbidiites Make Outpatient Treatment Too Risky, Need Close Monitoring Due to Risk of Patient Decompensation, Need for IV Antibiotics, Risk of Complication if Not Cared For in Hospital, Risk of Diagnosis Which Will Require Inpatient Eval/Care/Monitoring
[2020-01-08] MEDS: MONTELUKAST SODIUM 10 MG TABLET PO SCH (22:45)
[2020-01-08] MEDS: INSULIN GLARGINE,HUM.REC.ANLOG 1,000 UNIT/10 ML VIAL SUBCUT SCH (22:48)
[2020-01-09] MEDS: MEROPENEM 2 GM in NORMAL SALINE 100 ML IV SCH (01:28)
[2020-01-09] MEDS: ACYCLOVIR SODIUM 700 MG in NORMAL SALINE 100 ML IV SCH ×2 (01:28→11:28)
[2020-01-09] MEDS: VANCOMYCIN HCL 1,500 MG in DEXTROSE 5%-WATER 250 ML IV SCH (05:31)
[2020-01-09] MEDS: NORMAL SALINE 1000 ML 1,000 ML IV PRN (05:47)
[2020-01-09 06:39] LABS: ABSOLUTE EOSINOPHILS # (AUTO) 0.1 10^3/uL (0.0-0.6); ABSOLUTE LYMPHOCYTES (AUTO) 1.1 10^3/uL (0.5-4.7); ABSOLUTE MONOCYTES (AUTO) 0.8 10^3/uL (0.1-1.4); ABSOLUTE NEUT (AUTO) 2.6 10^3/uL (1.7-8.2); BASOPHILS % (AUTO) 0.6 % (0-2); EOSINOPHILS % (AUTO) 1.2 % (0-6); HEMATOCRIT 29.4 % (36.0-47.0); LYMPHOCYTES % (AUTO) 23.9 % (13-45); MEAN CORPUSCULAR HEMOGLOBIN 30.6 pg (27.0-33.4); MEAN CORPUSCULAR HGB CONC 33.9 g/dL (32.0-36.0); MEAN CORPUSCULAR VOLUME 90 fl (80-97); MONOCYTES % (AUTO) 16.9 % (3-13); PLATELET COUNT 300 10^3/uL (150-450); RED BLOOD COUNT 3.26 10^6/uL (3.72-5.28); RED CELL DISTRIBUTION WIDTH 13.8 % (11.5-14.0); SEGMENTED NEUTROPHILS % (AUTO) 57.4 % (42-78); TOTAL CELLS COUNTED % (AUTO) 100 %; WHITE BLOOD COUNT 4.5 10^3/uL (4.0-10.5)
[2020-01-09 06:56] LABS: ANION GAP 9 (5-19); BLOOD UREA NITROGEN 14 mg/dL (7-20); CALCIUM 8.4 mg/dL (8.4-10.2); CARBON DIOXIDE 26 mmol/L (22-30); CHLORIDE 93 mmol/L (98-107); GLUCOSE 319 mg/dL (75-110); POTASSIUM 4.3 mmol/L (3.6-5.0)
[2020-01-09 07:17] LABS: VANCOMYCIN,TROUGH 50.2 ug/mL (5.0-20.0)
[2020-01-09] MEDS: FLUOXETINE HCL 20 MG CAPSULE PO SCH (09:18)
[2020-01-09] MEDS: INSULIN LISPRO 100 UNIT/ML 3 ML VIAL SUBCUT SCH ×5 (09:24→17:24)
[2020-01-09] MEDS: HEPARIN SOD (PORCINE) 5,000 UNIT/ML 1 ML VIAL SUBCUT SCH ×2 (09:24→21:54)
[2020-01-09] MEDS: MULTIVITAMIN TABLET PO SCH (09:25)
[2020-01-09] MEDS: LOSARTAN POTASSIUM 25 MG TABLET PO SCH (09:25)
[2020-01-09] MEDS: ANASTROZOLE 1 MG TABLET PO SCH (09:25)
[2020-01-09] MEDS ORDERED: FLUOXETINE HCL 20 MG CAPSULE PO ONE (09:30)
--- NOTE | 2020-01-09 09:35 | Progress Note ---
Provider Note Provider Note: [facility] ID Telephone Advice Consultation Chart reviewed, patient not seen or examined. This is a 59-year-old woman with DM1 with insulin pump, neuropsychiatric disorder, who was admitted on 12/31 due to diabetic ketoacidosis. Apparently her insulin pump was empty and not working properly. Patient referred that she didn't need it. She was lethargic on admission, oriented to person and place. She was following simple commands. Patient was afebrile but had leukocytosis of 17k on admission, glucose was above 600, urine glucose above 500, potassium 7, creatinine 1.53. Anion gap was 36. Her chest x ray showed a RLL infiltrated. Head CT scan was negative. MRI of the brain had changes suspicious for meningitis or cerebritis. She had a lumbar puncture with opening pressure of 17. CSF analysis showed WBC 2, RBC 72, glucose 141 and protein 62. HSV PCR was negative, CSF culture negative as well. She has been on vancomycin, meropenem and acyclivir. DKA has been managed, resolved now. She is doing well, afebrile and HD stable. Leukocytosis resolved as well. ID consulted for recommendations. Allergies: cephalexin monohydrate [From Keflex] Allergy (Verified 09/19/18 16:18) iodine [Iodine] Allergy (Verified 09/19/18 16:18) Medications: Alprazolam [Xanax 0.5 mg Tablet] 0.5 mg PO ACLUNCH 01/01/20 Anastrozole [Arimidex 1 mg Tablet] 1 mg PO QHS 01/01/20 Bupropion HCl [Bupropion HCl Sr] 150 mg PO Q12 01/01/20 Fluoxetine HCl [Prozac] 80 mg PO QAM 01/01/20 Gabapentin [Neurontin 100 mg Capsule] 100 mg PO QHS 01/01/20 Hydroxyzine Pamoate [Vistaril 50 mg Capsule] 50 mg PO Q12 01/01/20 Ibuprofen [Motrin 800 mg Tablet] 800 mg PO TIDP PRN 01/01/20 Insulin Aspart 0 unit PUMP ASDIR PRN MDD 60 UNITS DAILY 01/01/20 Losartan Potassium [Cozaar 25 mg Tablet] 25 mg PO DAILY 01/01/20 Metoclopramide HCl [Reglan] 10 mg PO BID 01/01/20 Montelukast Sodium [Singulair 10 mg Tablet] 10 mg PO QHS 01/01/20 Multivitamin [Tab-A-Cintia (Multiple Vitamin) Tablet] 1 tab PO DAILY 01/01/20 Calcium Carbonate/Vitamin D3 [Calcium 600-Vit D3 400 Tablet] 1 each PO DAILY 01/07/20 Gabapentin [Neurontin 100 mg Capsule] 100 mg PO DAILYP PRN 01/07/20 L. Acidophilus/L.bulgaricus [Lactobacillus Tablet] 1 each PO DAILY 01/07/20 Vital Signs: Temp Pulse Resp BP Pulse Ox 98.1 F 90 16 136/55 H 95 01/09/20 08:29 01/09/20 08:29 01/09/20 08:29 01/09/20 08:29 01/09/20 08:29 Intake & Output 01/08/20 01/09/20 01/10/20 06:59 06:59 06:59 Intake Total 1071 2276 250 Output Total 2800 2100 Balance -1729 176 250 Weight 75.8 kg 72.7 kg Weight/Height Weight 72.7 kg Height 5 ft 5 in Laboratories: 01/09/20 05:20 01/09/20 05:20 MCV 90 fl (80-97) 01/09/20 05:20 MCH 30.6 pg (27.0-33.4) 01/09/20 05:20 MCHC 33.9 g/dL (32.0-36.0) 01/09/20 05:20 RDW 13.8 % (11.5-14.0) 01/09/20 05:20 Seg Neutrophils % 57.4 % (42-78) 01/09/20 05:20 Carbonic Acid 0.84 mmol/L (1.05-1.35) L 01/03/20 18:15 HCO3/H2CO3 Ratio 27:1 01/03/20 18:15 ABG pH 7.54 (7.35-7.45) H 01/03/20 18:15 ABG pCO2 27.9 mmHg (35-45) L 01/03/20 18:15 ABG pO2 73.2 mmHg (80-100) L 01/03/20 18:15 ABG HCO3 23.1 mmol/L (20-24) 01/03/20 18:15 ABG O2 Saturation 96.4 % (94-98) 01/03/20 18:15 ABG Base Excess 1.1 mmol/L 01/03/20 18:15 VBG pH 7.16 (7.30-7.42) L* 01/01/20 01:05 VBG pCO2 22.0 mmHg (35-63) L 01/01/20 01:05 VBG HCO3 7.6 mmol/L (20-32) L 01/01/20 01:05 VBG Base Excess -19.3 mmol/L 01/01/20 01:05 FiO2 21% 01/03/20 18:15 Chloride 93 mmol/L (98-107) L 01/09/20 05:20 Carbon Dioxide 26 mmol/L (22-30) 01/09/20 05:20 Anion Gap 9 (5-19) 01/09/20 05:20 Est GFR ( Amer) > 60 (>60) 01/09/20 05:20 Est GFR (Non-Af Amer) Cancelled 01/02/20 04:55 Glucose 319 mg/dL (75-110) H 01/09/20 05:20 Calcium 8.4 mg/dL (8.4-10.2) 01/09/20 05:20 Phosphorus 11.4 mg/dL (2.5-4.5) H 12/31/19 21:30 Magnesium 2.2 mg/dL (1.6-2.3) 12/31/19 21:30 Total Bilirubin 0.5 mg/dL (0.2-1.3) 12/31/19 21:30 AST 28 U/L (14-36) 12/31/19 21:30 Alkaline Phosphatase 174 U/L (38-126) H 12/31/19 21:30 Ammonia < 8.7 umol/L (9-33) L 01/03/20 15:54 Total Protein 7.6 g/dL (6.3-8.2) 12/31/19 21:30 Albumin 4.7 g/dL (3.5-5.0) 12/31/19 21:30 TSH 1.06 uIU/mL (0.47-4.68) 01/03/20 15:54 Urine Color YELLOW 12/31/19 23:29 Urine Appearance SLIGHTLY-CLOUDY 12/31/19 23:29 Urine pH 5.0 (5.0-9.0) 12/31/19 23:29 Ur Specific [place] 1.015 12/31/19 23:29 Urine Protein 30 mg/dL (NEGATIVE) H 12/31/19 23:29 Urine Glucose (UA) >=500 mg/dL (NEGATIVE) H 12/31/19 23:29 Urine Ketones 80 mg/dL (NEGATIVE) H 12/31/19 23:29 Urine Blood NEGATIVE (NEGATIVE) 12/31/19 23:29 Urine Nitrite NEGATIVE (NEGATIVE) 12/31/19 23:29 Ur Leukocyte Esterase NEGATIVE (NEGATIVE) 12/31/19 23:29 Urine WBC (Auto) 0 /HPF 12/31/19 23:29 Urine RBC (Auto) 0 /HPF 12/31/19 23:29 Fluid Tube Number 3 01/04/20 13:34 CSF Volume 8.0 CC 01/04/20 13:34 CSF Appearance CLEAR 01/04/20 13:34 CSF WBC 2 /uL (0-5) 01/04/20 13:34 CSF RBC 72 /uL (0-10) 01/04/20 13:34 CSF Color (1) PINK 01/04/20 13:34 CSF Color (2) COLORLESS 01/04/20 13:34 CSF Color (3) COLORLESS 01/04/20 13:34 CSF Color (4) COLORLESS 01/04/20 13:34 CSF Glucose 141 mg/dL (40-70) H 01/04/20 13:34 CSF Total Protein 62 mg/dL (12-60) H 01/04/20 13:34 Microbiology: Blood culture: 01/01/20 NGTD Urine culture: 01/01/20 NGTD CSF culture: 01/04/20 Negative Radiology: Chest X-Ray 01/01/20 00:00 IMPRESSION: Right lower lobe infiltrate consistent with pneumonia. Small right-sided pleural effusion. Head CT 01/01/20 10:40 IMPRESSION: NORMAL BRAIN CT WITHOUT CONTRAST. EVIDENCE OF ACUTE STROKE: NO. Head MRI 01/03/20 14:40 IMPRESSION: Findings are concerning for meningitis and possible adjacent cerebritis. There may be communication between the right frontal sinus and right anterior cranial fossa. CT would provide greater bone detail. Neoplasm is not excluded. Follow-up is recommended. Lumbar Puncture 01/04/20 00:00 IMPRESSION: Lumbar puncture under fluoroscopy. No immediate complication. Assessment and Recommendations: Patient evaluated due to possible meningitis/cerebritis in the setting of Diabetic Ketoacidosis. Patient was admitted with altered mental status due to DKA. MRI was suggestive of an inflammatory process in meninges and brain. Lumbar puncture was performed and opening pressure was normal. CSF analysis not consistent with meningitis. Only 2 WBC, glucose elevated and protein as well. These are consistent with metabolic disturbances not infection. Considering that she had metabolic encephalopathy, now resolving after DKA resolved, no evidence of meningitis. She did have what seems to be aspiration pneumonia with an infiltrate in the right lower lobe. She has received antibiotics since 01/01, already 6 days of antibiotics, completing treatment for aspiration. No indication for antibiotic therapy at this time, recommend discontinuing antibiotics. Please call back if any questions. Chioma Anna MD [facility] [phone]
--- NOTE | 2020-01-09 12:26 | PDOC PROGRESS REPORT ---
Subjective Date:: 01/09/20 Subjective:: 59 year old female with a history of insulin-dependent diabetes mellitus current ly on insulin pump presents the ED reporting nausea, vomiting and generalized weakness. Patient's insulin pump alarm was going off signaling had blood sugar to be high ranging in the 600s. Per ED physician, patient's insulin pump was found empty and unable. Patient is very lethargic, sluggish to answer questions but is oriented to place, person and time. She is able to follow simple commands but is unable to give detailed history. She denies shortness of breath, chest pain, fever, dysuria, diarrhea, abdominal pain. 01/02/20- Patient was seen and examined. Daughters at bedside. She is back in DKA today. 01/03/20-Patient was seen and examined. Daughter at bedside. DKA resolved. She is still on low-dose insulin drip to prevent her from going back into DKA. She still lethargic. CT of the head yesterday was negative. 01/04/20-Patient was seen and examined. Daughter at bedside. DKA resolved. She is still on low-dose insulin drip to prevent her from going back into DKA. She still lethargic. MRI suspicious for meningitis. Lumbar puncture at bedside was not successful. Patient was sent for lumbar puncture under fluoroscopy. Her mental status is better today. Antibiotics was switched to IV vancomycin and meropenem last night. 01/05/20-Patient was seen and examined. Mental status is much better. She is tolerating diet. He is on insulin drip and she was severely hypoglycemic this morning. She does not think she has mental capacity at the moment to approach her insulin pump. 01/06/20-Patient was seen and examined. He is slightly lethargic today. Apparently her home medications were reconciled wrongly. Especially her sedating medications. This included hydroxyzine, Xanax, gabapentin and Wellbutrin. Discussed with the daughter and we will hold these medications for today and will restart them at the normal doses tomorrow. 01/07/20-Patient was seen and examined. Much more awake and alert today. Blood glucose levels still elevated but better than prior. 01/08/20-Per Previous Physician: "Patient is very lethargic, unable to give detailed history. History is mainly from ER signout and chart review. CHARLIE PERKINS is a 59 year old female with a history of insulin-dependent diabetes mellitus currently on insulin pump presents the ED reporting nausea, vomiting and generalized weakness. Patient's insulin pump alarm was going off signaling had blood sugar to be high ranging in the 600s. Per ED physician, patient's insulin pump was found empty and unable. Patient is very lethargic, sluggish to answer questions but is oriented to place, person and time. She is able to follow simple commands but is unable to give detailed history. She denies shortness of breath, chest pain, fever, dysuria, diarrhea, abdominal pain." 01/08/2020 Patient is alert and very clearheaded today. She is fully oriented. I believe she does not have bacterial meningitis given her CSF results and her significant improvement over the past few days. Her CSF results showed 2 WBCs and she had meningitis severe enough to affect her mentation, I would expect a much higher number than this even if she were on antibiotics prior to admission. Protein and glucose are mildly elevated and CSF and this is likely due to DKA on admission. Patient states she went into DKA because her insulin pump was not filled with insulin as she states she did not believe she needed it anymore. Patient admits to having schizophrenia on multiple psychiatric medications and follows with a psychiatrist. ID has not been consulted thus far so I have consulted them today. Patient states she is overall feeling quite well today. We can likely stop her large regimen of antibacterial/anti-viral agents 01/09/20-comfortably in the bed communicating well. No acute events. As per ID to discontinue IV antibiotic therapy. Reason For Visit: DIABETIC KETOACIDOSIS,ACUTE KIDNEY INJURY,HYPERKAL Physical Exam Vital Signs: Temp Pulse Resp BP Pulse Ox 98.1 F 90 16 136/55 H 95 01/09/20 08:29 01/09/20 08:29 01/09/20 08:29 01/09/20 08:29 01/09/20 08:29 Intake & Output 01/08/20 01/09/20 01/10/20 06:59 06:59 06:59 Intake Total 1071 2276 250 Output Total 2800 2100 Balance -1729 176 250 Weight 75.8 kg 72.7 kg General appearance: PRESENT: no acute distress, cooperative, well-developed Head exam: PRESENT: atraumatic Eye exam: PRESENT: PERRLA Mouth exam: PRESENT: moist, tongue midline Teeth exam: PRESENT: poor dentation Neck exam: ABSENT: carotid bruit, JVD, lymphadenopathy, thyromegaly Respiratory exam: PRESENT: decreased breath sounds Cardiovascular exam: PRESENT: RRR. ABSENT: diastolic murmur, rubs, systolic murmur GI/Abdominal exam: PRESENT: normal bowel sounds, soft. ABSENT: distended, guarding, mass, organolmegaly, rebound, tenderness Rectal exam: PRESENT: deferred Extremities exam: PRESENT: full ROM. ABSENT: calf tenderness, clubbing, pedal edema Neurological exam: PRESENT: alert, awake, oriented to person, oriented to place, oriented to time, oriented to situation, CN II-XII grossly intact. ABSENT: motor sensory deficit Psychiatric exam: PRESENT: appropriate affect, normal mood. ABSENT: homicidal ideation, suicidal ideation Results Laboratory Results: 01/09/20 05:20 01/09/20 05:20 01/09/20 01/09/20 05:20 05:20 WBC 4.5 RBC 3.26 L Hgb 10.0 L Hct 29.4 L MCV 90 MCH 30.6 MCHC 33.9 RDW 13.8 Plt Count 300 Seg Neutrophils % 57.4 Sodium 128.3 L Potassium 4.3 Chloride 93 L Carbon Dioxide 26 Anion Gap 9 BUN 14 Creatinine 0.60 Est GFR ( Amer) > 60 Glucose 319 H Calcium 8.4 Impressions: Chest X-Ray 01/01/20 00:00 IMPRESSION: Right lower lobe infiltrate consistent with pneumonia. Small right-sided pleural effusion. Head CT 01/01/20 10:40 IMPRESSION: NORMAL BRAIN CT WITHOUT CONTRAST. EVIDENCE OF ACUTE STROKE: NO. Head MRI 01/03/20 14:40 IMPRESSION: Findings are concerning for meningitis and possible adjacent cerebritis. There may be communication between the right frontal sinus and right anterior cranial fossa. CT would provide greater bone detail. Neoplasm is not excluded. Follow-up is recommended. Lumbar Puncture 01/04/20 00:00 IMPRESSION: Lumbar puncture under fluoroscopy. No immediate complication. Assessment and Plan - Diagnosis (1) Acute metabolic encephalopathy Is this a current diagnosis for this admission?: Yes (2) Depression Is this a current diagnosis for this admission?: Yes (3) Schizophrenia Is this a current diagnosis for this admission?: Yes (4) Anxiety Is this a current diagnosis for this admission?: Yes Plan: (1) DKA (diabetic ketoacidoses) Per Previous Physician: "DKA is resolved. Slightly hyperglycemic. Will increase Lantus dose 20 and will premeal Humalog to 8." Plan to restart home insulin pump prior to discharge; will offer patient refills on any insulin that she may need 01/09/2020-patient admitted with DKA resolving. Latest blood sugar is 56. To increase the Lantus dose to 25 units at bedtime, to increase Premeal Humalog to 10 units prior to meals. (2) Hyperkalemia Per Previous Physician: "Due to insulin deficiency. Resolved. Monitor potassium levels." 01/09/2020-serum potassium today 4.3 hyperkalemia resolved. (3) Acute kidney injury Resolved. Monitor renal function. 01/09/2020-serum creatinine today 0.6 HAILE resolved. (4) Volume depletion Improved with IV fluids. (5) Leukocytosis Per Previous Physician: "Resolved. Due to pneumonia and meningitis. She was switched to IV vancomycin and meropenem." Patient does not have bacterial meningitis 01/09/2020-BC count is 4100 leukocytosis is resolved. As per ID recommendations antibiotics will be discontinued from today. (6) Diabetes mellitus Hemoglobin A1c 10.1 (6) Right lower lobe pneumonia Antibiotics as above 01/09/2020-antibiotics will be discontinued as per ID recommendations. (7) ruled out bacterial meningitis Per Previous Physician: "Continue IV vancomycin and meropenem and acyclovir. Follow CSF culture results. Recommend continuing antibiotics for at least total of 7 days even if the cultures are negative considering that she was on antibiotics prior to lumbar puncture." ID consult pending Patient does not have bacterial meningitis 01/09/2020-bacterial meningitis is ruled out. - Plan Summary Summary: Assessment and Plan (1) DKA (diabetic ketoacidoses) Per Previous Physician: "DKA is resolved. Slightly hyperglycemic. Will increase Lantus dose 20 and will premeal Humalog to 8." Plan to restart home insulin pump prior to discharge; will offer patient re fills on any insulin that she may need (2) Hyperkalemia Per Previous Physician: "Due to insulin deficiency. Resolved. Monitor potassium levels." (3) Acute kidney injury Resolved. Monitor renal function. (4) Volume depletion Improved with IV fluids. (5) Leukocytosis Per Previous Physician: "Resolved. Due to pneumonia and meningitis. She was switched to IV vancomycin and meropenem." Patient does not have bacterial meningitis (6) Diabetes mellitus Hemoglobin A1c 10.1 (6) Right lower lobe pneumonia Antibiotics as above (7) ruled out bacterial meningitis Per Previous Physician: "Continue IV vancomycin and meropenem and acyclovir. Follow CSF culture results. Recommend continuing antibiotics for at least total of 7 days even if the cultures are negative considering that she was on antibiotics prior to lumbar puncture." ID consult pending Patient does not have bacterial meningitis - Time Anticipated Discharge Disposition: Home, Self Care Anticipated Discharge Timeframe: within 48 hours
[2020-01-09] MEDS: SODIUM CHLORIDE 1 GM TABLET PO SCH ×2 (12:42→17:24)
[2020-01-09 16:37] LABS: ALPHA-1-GLOBULIN 1 6.3 % (1.1-6.6); ALPHA-2-GLOBULIN 8.6 % (3.0-12.6); CSF ALBUMIN 51.5 % (56.8-76.4); PRE ALBUMIN 6.6 % (2.2-7.1); TOTAL PROTEIN CSF PE 27.2 mg/dL (0.0-44.0)
[2020-01-09] MEDS: ACETAMINOPHEN 325 MG TABLET PO PRN (21:54)
[2020-01-09] MEDS: MONTELUKAST SODIUM 10 MG TABLET PO SCH (21:54)
[2020-01-09] MEDS ORDERED: INSULIN GLARGINE,HUM.REC.ANLOG 1,000 UNIT/10 ML VIAL SUBCUT SCH (22:00)
[2020-01-10 07:16] LABS: CSF PE GAMMA GLOBULIN 8.3 % (3.0-13.0); PROT ELEC MSPIKE Not Observed % (Not Observ)
[2020-01-10] MEDS ORDERED: FLUOXETINE HCL 20 MG CAPSULE PO SCH ×2 (08:00)
[2020-01-10 09:21] VITALS: BP 130/58
[2020-01-10] MEDS: INSULIN LISPRO 100 UNIT/ML 3 ML VIAL SUBCUT SCH ×2 (09:22→09:26)
[2020-01-10] MEDS: MULTIVITAMIN TABLET PO SCH (09:27)
[2020-01-10] MEDS: LOSARTAN POTASSIUM 25 MG TABLET PO SCH (09:27)
[2020-01-10] MEDS: HEPARIN SOD (PORCINE) 5,000 UNIT/ML 1 ML VIAL SUBCUT SCH (09:27)
[2020-01-10] MEDS: ANASTROZOLE 1 MG TABLET PO SCH (09:28)
[2020-01-10] MEDS: SODIUM CHLORIDE 1 GM TABLET PO SCH (09:28)
[2020-01-10 10:16] LABS: ALBUMIN 3.4 g/dL (3.5-5.0); ALKALINE PHOSPHATASE 180 U/L (38-126); ANION GAP 7 (5-19); ASPARTATE AMINO TRANSFERASE 95 U/L (14-36); BILIRUBIN,DIRECT 0.2 mg/dL (0.0-0.4); BILIRUBIN,TOTAL 0.4 mg/dL (0.2-1.3); BLOOD UREA NITROGEN 19 mg/dL (7-20); CARBON DIOXIDE 28 mmol/L (22-30); CHLORIDE 97 mmol/L (98-107); GLUCOSE 156 mg/dL (75-110); POTASSIUM 4.4 mmol/L (3.6-5.0); TOTAL PROTEIN 6.3 g/dL (6.3-8.2)
--- NOTE | 2020-01-10 11:54 | PDOC DISCHARGE SUMMARY ---
Impression - Admit/DC Date/PCP Admission Date/Primary Care Provider: 01/01/20 03:16 DLCARMELINA MINAYA-Nery Discharge Date: 01/10/20 - Discharge Diagnosis (1) Acute metabolic encephalopathy Is this a current diagnosis for this admission?: Yes (2) Depression Is this a current diagnosis for this admission?: Yes (3) Schizophrenia Is this a current diagnosis for this admission?: Yes (4) Anxiety Is this a current diagnosis for this admission?: Yes - Assessment Summary: Assessment and Plan (1) DKA (diabetic ketoacidoses) Per Previous Physician: "DKA is resolved. Slightly hyperglycemic. Will increase Lantus dose 20 and will premeal Humalog to 8." Plan to restart home insulin pump prior to discharge; will offer patient refills on any insulin that she may need 01/09/2020-patient admitted with DKA resolving. Latest blood sugar is 56. To increase the Lantus dose to 25 units at bedtime, to increase Premeal Humalog to 10 units prior to meals. 01/10/2020-patient admitted with a DKA due to noncompliance. Patient is receiving Lantus 25 units at bedtime and premeal Humalog 10 units prior to meals. Prescriptions were given to the patient and again advised to be compliant with medications. Patient agreed and she plan to follow-up with PCP. (2) Hyperkalemia Per Previous Physician: "Due to insulin deficiency. Resolved. Monitor potassium levels." 01/09/2020-serum potassium today 4.3 hyperkalemia resolved. (3) Acute kidney injury Resolved. Monitor renal function. 01/09/2020-serum creatinine today 0.6 HAILE resolved. (4) Volume depletion Improved with IV fluids. (5) Leukocytosis Per Previous Physician: "Resolved. Due to pneumonia and meningitis. She was switched to IV vancomycin and meropenem." Patient does not have bacterial meningitis 01/09/2020-BC count is 4100 leukocytosis is resolved. As per ID recommendations antibiotics will be discontinued from today. (6) Diabetes mellitus Hemoglobin A1c 10.1 (6) Right lower lobe pneumonia Antibiotics as above 01/09/2020-antibiotics will be discontinued as per ID recommendations. (7) ruled out bacterial meningitis Per Previous Physician: "Continue IV vancomycin and meropenem and acyclovir. Follow CSF culture results. Recommend continuing antibiotics for at least total of 7 days even if the cultures are negative considering that she was on antibiotics prior to lumbar puncture." ID consult pending Patient does not have bacterial meningitis - Additional Information Resuscitation Status: Full Code Discharge Diet: Diabetic Discharge Activity: Activity As Tolerated Referrals: DL LEDBETTER FNP-C [Primary Care Provider] - 01/18/20 10:15 am Prescriptions: Insulin Lispro [Humalog Insulin (Lispro) 100 unit/mL] 10 unit SUBCUT AC 30 Days #1 vial Insulin Glargine,Hum.rec.anlog [Lantus Insulin 100 Unit/1 ml 10 ml] 25 unit SUBCUT QHS 30 Days #2 vial Home Medications: Alprazolam [Xanax 0.5 mg Tablet] 0.5 mg PO ACLUNCH 01/01/20 Anastrozole [Arimidex 1 mg Tablet] 1 mg PO QHS 01/01/20 Bupropion HCl [Bupropion HCl Sr] 150 mg PO Q12 01/01/20 Fluoxetine HCl [Prozac] 80 mg PO QAM 01/01/20 Gabapentin [Neurontin 100 mg Capsule] 100 mg PO QHS 01/01/20 Hydroxyzine Pamoate [Vistaril 50 mg Capsule] 50 mg PO Q12 01/01/20 Losartan Potassium [Cozaar 25 mg Tablet] 25 mg PO DAILY 01/01/20 Metoclopramide HCl [Reglan] 10 mg PO BID 01/01/20 Montelukast Sodium [Singulair 10 mg Tablet] 10 mg PO QHS 01/01/20 Multivitamin [Tab-A-Cintia (Multiple Vitamin) Tablet] 1 tab PO DAILY 01/01/20 Calcium Carbonate/Vitamin D3 [Calcium 600-Vit D3 400 Tablet] 1 each PO DAILY 01/07/20 Gabapentin [Neurontin 100 mg Capsule] 100 mg PO DAILYP PRN 01/07/20 L. Acidophilus/L.bulgaricus [Lactobacillus Tablet] 1 each PO DAILY 01/07/20 Insulin Glargine,Hum.rec.anlog [Lantus Insulin 100 Unit/1 ml 10 ml] 25 unit SUBCUT QHS 30 Days #2 vial 01/10/20 Insulin Lispro [Humalog Insulin (Lispro) 100 unit/mL] 0 - 12 unit SUBCUT ACHS unit 01/10/20 Insulin Lispro [Humalog Insulin (Lispro) 100 unit/mL] 10 unit SUBCUT AC 30 Days #1 vial 01/10/20 History of Present Illiness History of Present Illness: CHARLIE PERKINS is a 59 year old female 59 year old female with a history of insulin-dependent diabetes mellitus currently on insulin pump presents the ED reporting nausea, vomiting and generalized weakness. Patient's insulin pump alarm was going off signaling had blood sugar to be high ranging in the 600s. Per ED physician, patient's insulin pump was found empty and unable. Patient is very lethargic, sluggish to answer questions but is oriented to place, person and time. She is able to follow simple commands but is unable to give detailed history. She denies shortness of breath, chest pain, fever, dysuria, diarrhea, abdominal pain. Hospital Course Hospital Course: 59 year old female with a history of insulin-dependent diabetes mellitus currently on insulin pump presents the ED reporting nausea, vomiting and generalized weakness. Patient's insulin pump alarm was going off signaling had blood sugar to be high ranging in the 600s. Per ED physician, patient's insulin pump was found empty and unable. Patient is very lethargic, sluggish to answer questions but is oriented to place, person and time. She is able to follow simple commands but is unable to give detailed history. She denies shortness of breath, chest pain, fever, dysuria, diarrhea, abdominal pain. 01/02/20- Patient was seen and examined. Daughters at bedside. She is back in DKA today. 01/03/20-Patient was seen and examined. Daughter at bedside. DKA resolved. She is still on low-dose insulin drip to prevent her from going back into DKA. She still lethargic. CT of the head yesterday was negative. 01/04/20-Patient was seen and examined. Daughter at bedside. DKA resolved. She is still on low-dose insulin drip to prevent her from going back into DKA. She still lethargic. MRI suspicious for meningitis. Lumbar puncture at bedside was not successful. Patient was sent for lumbar p uncture under fluoroscopy. Her mental status is better today. Antibiotics was switched to IV vancomycin and meropenem last night. 01/05/20-Patient was seen and examined. Mental status is much better. She is tolerating diet. He is on insulin drip and she was severely hypoglycemic this morning. She does not think she has mental capacity at the moment to approach her insulin pump. 01/06/20-Patient was seen and examined. He is slightly lethargic today. Apparently her home medications were reconciled wrongly. Especially her sedating medications. This included hydroxyzine, Xanax, gabapentin and Wellbutrin. Discussed with the daughter and we will hold these medications for today and will restart them at the normal doses tomorrow. 01/07/20-Patient was seen and examined. Much more awake and alert today. Blood glucose levels still elevated but better than prior. 01/08/20-Per Previous Physician: "Patient is very lethargic, unable to give detailed history. History is mainly from ER signout and chart review. CHARLIE PERKINS is a 59 year old female with a history of insulin-dependent diabetes mellitus currently on insulin pump presents the ED reporting nausea, vomiting and generalized weakness. Patient's insulin pump alarm was going off signaling had blood sugar to be high ranging in the 600s. Per ED physician, patient's insulin pump was found empty and unable. Patient is very lethargic, sluggish to answer questions but is oriented to place, person and time. She is able to follow simple commands but is unable to give detailed history. She denies shortness of breath, chest pain, fever, dysuria, diarrhea, abdominal pain." 01/08/2020 Patient is alert and very clearheaded today. She is fully oriented. I believe she does not have bacterial meningitis given her CSF results and her significant improvement over the past few days. Her CSF results showed 2 WBCs and she had meningitis severe enough to affect her mentation, I would expect a much higher number than this even if she were on antibiotics prior to admission. Protein and glucose are mildly elevated and CSF and this is likely due to DKA on admission. Patient states she went into DKA because her insulin pump was not filled with insulin as she states she did not believe she needed it anymore. Patient admits to having schizophrenia on multiple psychiatric medications and follows with a psychiatrist. ID has not been consulted thus far so I have consulted them today. Patient states she is overall feeling quite well today. We can likely stop her large regimen of antibacterial/anti-viral agents 01/09/20-comfortably in the bed communicating well. No acute events. As per ID to discontinue IV antibiotic therapy. 01/10/2020-blood sugars are much improved today. Latest blood sugar is 116. No acute events in the last 24 hours. Patient is expressing desire to go home today. Patient is strongly advised to follow-up with PCP next week. Physical Exam Vital Signs: Temp Pulse Resp BP Pulse Ox 98.0 F 86 16 130/58 H 96 01/10/20 11:21 01/10/20 11:21 01/10/20 11:21 01/10/20 11:21 01/10/20 11:21 Intake & Output 01/09/20 01/10/20 01/11/20 06:59 06:59 06:59 Intake Total 2276 1326 Output Total 2100 950 Balance 176 376 Weight 72.7 kg 73.2 kg General appearance: PRESENT: no acute distress, cooperative, well-developed Head exam: PRESENT: atraumatic Eye exam: PRESENT: PERRLA Mouth exam: PRESENT: moist, tongue midline Teeth exam: PRESENT: poor dentation Neck exam: ABSENT: carotid bruit, JVD, lymphadenopathy, thyromegaly Respiratory exam: PRESENT: decreased breath sounds Cardiovascular exam: PRESENT: RRR. ABSENT: diastolic murmur, rubs, systolic murmur GI/Abdominal exam: PRESENT: normal bowel sounds, soft. ABSENT: distended, guarding, mass, organolmegaly, rebound, tenderness Rectal exam: PRESENT: deferred Extremities exam: PRESENT: full ROM. ABSENT: calf tenderness, clubbing, pedal edema Neurological exam: PRESENT: alert, awake, oriented to person, oriented to place, oriented to time, oriented to situation, CN II-XII grossly intact. ABSENT: motor sensory deficit Skin exam: PRESENT: dry, intact, warm. ABSENT: cyanosis, rash Results Laboratory Results: WBC 4.5 10^3/uL (4.0-10.5) 01/09/20 05:20 RBC 3.26 10^6/uL (3.72-5.28) L 01/09/20 05:20 Hgb 10.0 g/dL (12.0-15.5) L 01/09/20 05:20 Hct 29.4 % (36.0-47.0) L 01/09/20 05:20 MCV 90 fl (80-97) 01/09/20 05:20 MCH 30.6 pg (27.0-33.4) 01/09/20 05:20 MCHC 33.9 g/dL (32.0-36.0) 01/09/20 05:20 RDW 13.8 % (11.5-14.0) 01/09/20 05:20 Plt Count 300 10^3/uL (150-450) 01/09/20 05:20 Lymph % (Auto) 23.9 % (13-45) 01/09/20 05:20 [place] % (Auto) 16.9 % (3-13) H 01/09/20 05:20 Eos % (Auto) 1.2 % (0-6) 01/09/20 05:20 Baso % (Auto) 0.6 % (0-2) 01/09/20 05:20 Absolute Neuts (auto) 2.6 10^3/uL (1.7-8.2) 01/09/20 05:20 Absolute Lymphs (auto) 1.1 10^3/uL (0.5-4.7) 01/09/20 05:20 Absolute Monos (auto) 0.8 10^3/uL (0.1-1.4) 01/09/20 05:20 Absolute Eos (auto) 0.1 10^3/uL (0.0-0.6) 01/09/20 05:20 Absolute Basos (auto) 0.0 10^3/uL (0.0-0.2) 01/09/20 05:20 Total Counted 100 12/31/19 21:30 Seg Neutrophils % 57.4 % (42-78) 01/09/20 05:20 Seg Neuts % (Manual) 88 % (42-78) H 12/31/19 21:30 Lymphocytes % (Manual) 7 % (13-45) L 12/31/19 21:30 Monocytes % (Manual) 5 % (3-13) 12/31/19 21:30 Eosinophils % (Manual) 0 % (0-6) 12/31/19 21:30 Basophils % (Manual) 0 % (0-2) 12/31/19 21:30 Abs Neuts (Manual) 15.7 10^3/uL (1.7-8.2) H 12/31/19 21:30 Abs Lymphs (Manual) 1.2 10^3/uL (0.5-4.7) 12/31/19 21:30 Abs Monocytes (Manual) 0.9 10^3/uL (0.1-1.4) 12/31/19 21:30 Absolute Eos (Manual) 0.0 10^3/uL (0.0-0.6) 12/31/19 21:30 Abs Basophils (Manual) 0.0 10^3/uL (0.0-0.2) 12/31/19 21:30 Hypersegmented Neuts PRESENT 12/31/19 21:30 Toxic Vacuolation PRESENT 12/31/19 21:30 Platelet Estimate Cancelled 01/02/20 04:55 Clumped Platelets PRESENT 12/31/19 21: Platelet Comment ADEQUATE 12/31/19 21:30 Poikilocytosis SLIGHT 12/31/19 21:30 Anisocytosis SLIGHT 12/31/19 21:30 Macrocytosis 1+ 12/31/19 21:30 Tressa Cells SLIGHT 12/31/19 21:30 PT 14.0 SEC (11.4-15.4) 01/04/20 04:11 INR 1.06 01/04/20 04:11 APTT 34.8 SEC (23.5-35.8) 01/04/20 04:11 Carbonic Acid 0.84 mmol/L (1.05-1.35) L 01/03/20 18:15 HCO3/H2CO3 Ratio 27:1 01/03/20 18:15 ABG pH 7.54 (7.35-7.45) H 01/03/20 18:15 ABG pCO2 27.9 mmHg (35-45) L 01/03/20 18:15 ABG pO2 73.2 mmHg (80-100) L 01/03/20 18:15 ABG HCO3 23.1 mmol/L (20-24) 01/03/20 18:15 ABG Total CO2 23.9 mmol/L (21-25) 01/03/20 18:15 ABG O2 Saturation 96.4 % (94-98) 01/03/20 18:15 ABG Base Excess 1.1 mmol/L 01/03/20 18:15 VBG pH 7.16 (7.30-7.42) L* 01/01/20 01:05 VBG pCO2 22.0 mmHg (35-63) L 01/01/20 01:05 VBG HCO3 7.6 mmol/L (20-32) L 01/01/20 01:05 VBG Base Excess -19.3 mmol/L 01/01/20 01:05 FiO2 21% 01/03/20 18:15 Sodium 132.2 mmol/L (137-145) L 01/10/20 09:12 Potassium 4.4 mmol/L (3.6-5.0) 01/10/20 09:12 Chloride 97 mmol/L (98-107) L 01/10/20 09:12 Carbon Dioxide 28 mmol/L (22-30) 01/10/20 09:12 Anion Gap 7 (5-19) 01/10/20 09:12 BUN 19 mg/dL (7-20) 01/10/20 09:12 Creatinine 0.62 mg/dL (0.52-1.25) 01/10/20 09:12 Est GFR ( Amer) > 60 (>60) 01/10/20 09:12 Est GFR (Non-Af Amer) Cancelled 01/02/20 04:55 Est GFR (MDRD) Non-Af > 60 (>60) 01/10/20 09:12 Glucose 156 mg/dL (75-110) H 01/10/20 09:12 POC Glucose 284 mg/dL (70-110) H 01/10/20 11:21 Hemoglobin A1c % 10.1 % (4.7-6.0) H 01/01/20 08:40 Calcium 9.0 mg/dL (8.4-10.2) 01/10/20 09:12 Phosphorus 11.4 mg/dL (2.5-4.5) H 12/31/19 21:30 Magnesium 2.4 mg/dL (1.6-2.3) H 01/10/20 09:12 Total Bilirubin 0.4 mg/dL (0.2-1.3) 01/10/20 09:12 Direct Bilirubin 0.2 mg/dL (0.0-0.4) 01/10/20 09:12 Neonat Total Bilirubin Not Reportable 01/10/20 09:12 Neonat Direct Bilirubin Not Reportable 01/10/20 09:12 Neonat Indirect Bili Not Reportable 01/10/20 09:12 AST 95 U/L (14-36) H 01/10/20 09:12 ALT 32 U/L (<35) 01/10/20 09:12 Alkaline Phosphatase 180 U/L (38-126) H 01/10/20 09:12 Ammonia < 8.7 umol/L (9-33) L 01/03/20 15:54 Total Protein 6.3 g/dL (6.3-8.2) 01/10/20 09:12 Albumin 3.4 g/dL (3.5-5.0) L 01/10/20 09:12 EGFR Cancelled 01/02/20 04:55 TSH 1.06 uIU/mL (0.47-4.68) 01/03/20 15:54 Urine Color YELLOW 12/31/19 23:29 Urine Appearance SLIGHTLY-CLOUDY 12/31/19 23:29 Urine pH 5.0 (5.0-9.0) 12/31/19 23:29 Ur Specific [place] 1.015 12/31/19 23:29 Urine Protein 30 mg/dL (NEGATIVE) H 12/31/19 23:29 Urine Glucose (UA) >=500 mg/dL (NEGATIVE) H 12/31/19 23:29 Urine Ketones 80 mg/dL (NEGATIVE) H 12/31/19 23:29 Urine Blood NEGATIVE (NEGATIVE) 12/31/19 23:29 Urine Nitrite NEGATIVE (NEGATIVE) 12/31/19 23:29 Urine Bilirubin NEGATIVE (NEGATIVE) 12/31/19 23:29 Urine Urobilinogen NEGATIVE mg/dL (<2.0) 12/31/19 23:29 Ur Leukocyte Esterase NEGATIVE (NEGATIVE) 12/31/19 23:29 Urine WBC (Auto) 0 /HPF 12/31/19 23:29 Urine RBC (Auto) 0 /HPF 12/31/19 23:29 U Hyaline Cast (Auto) 22 /LPF 12/31/19 23:29 Squamous Epi Cells Auto 2 /HPF 12/31/19 23:29 Urine Mucus (Auto) RARE /LPF 12/31/19 23:29 Urine Ascorbic Acid NEGATIVE (NEGATIVE) 12/31/19 23:29 Fluid Tube Number 3 01/04/20 13:34 CSF Volume 8.0 CC 01/04/20 13:34 CSF Appearance CLEAR 01/04/20 13:34 CSF WBC 2 /uL (0-5) 01/04/20 13:34 CSF RBC 72 /uL (0-10) 01/04/20 13:34 CSF Color (1) PINK 01/04/20 13:34 CSF Color (2) COLORLESS 01/04/20 13:34 CSF Color (3) COLORLESS 01/04/20 13:34 CSF Color (4) COLORLESS 01/04/20 13:34 CSF Glucose 141 mg/dL (40-70) H 01/04/20 13:34 CSF Total Protein PEP 27.2 mg/dL (0.0-44.0) 01/04/20 13:34 CSF Total Protein 62 mg/dL (12-60) H 01/04/20 13:34 CSF Prealbumin 6.6 % (2.2-7.1) 01/04/20 13:34 CSF Albumin 51.5 % (56.8-76.4) L 01/04/20 13:34 CSF Ywytq-4-Jvsuacmq 6.3 % (1.1-6.6) 01/04/20 13:34 CSF Bayyx-2-Lvchhbpi 8.6 % (3.0-12.6) 01/04/20 13:34 CSF Beta Globulin 18.7 % (7.3-17.9) H 01/04/20 13:34 CSF Gamma Globulin 8.3 % (3.0-13.0) 01/04/20 13:34 CSF PEP M-Josh Not Observed % (Not Observ) 01/04/20 13:34 Time Trough Drawn 0520 01/09/20 05:20 Vancomycin Trough 50.2 ug/mL (5.0-20.0) H 01/09/20 05:20 HSV I DNA PCR Negative (Negative) 01/04/20 13:34 HSV II DNA PCR Negative (Negative) 01/04/20 13:34 HIV 1&2 Antibody NEGATIVE (NEGATIVE) 01/06/20 14:40 Slides for Path Review Cancelled 01/02/20 04:55 Impressions: Chest X-Ray 01/01/20 00:00 IMPRESSION: Right lower lobe infiltrate consistent with pneumonia. Small right-sided pleural effusion. Head CT 01/01/20 10:40 IMPRESSION: NORMAL BRAIN CT WITHOUT CONTRAST. EVIDENCE OF ACUTE STROKE: NO. Head MRI 01/03/20 14:40 IMPRESSION: Findings are concerning for meningitis and possible adjacent cerebritis. There may be communication between the right frontal sinus and right anterior cranial fossa. CT would provide greater bone detail. Neoplasm is not excluded. Follow-up is recommended. Lumbar Puncture 01/04/20 00:00 IMPRESSION: Lumbar puncture under fluoroscopy. No immediate complication. Plan Time Spent: Greater than 30 Minutes Stroke Is this a Stroke Patient?: No Acute Heart Failure Is this a Heart Failure Patient?: No
[2020-01-11 23:36] LABS: LYME P18 AB IGG CSF Absent (.); LYME P23 AB IGG CSF Absent (.); LYME P23 AB IGM CSF Absent (.); LYME P28 AB IGG CSF Absent (.); LYME P39 AB IGM CSF Absent (.); LYME P41 AB IGG CSF Absent (.); LYME P41 AB IGM CSF Absent (.); LYME P58 AB IGG CSF Absent (.); LYME P66 AB IGG CSF Absent (.); LYME P93 AB IGG CSF Absent (.)
[2020-01-12 07:03] LABS: LYME IGG WB CSF INTERP Negative (.); LYME IGM WB CSF INTERP Negative (.)
== END 2020-01-10 12:43 | disposition home or self-care (01) | DRG 637 ==
LOC: ER 20:55 → EH 01-01 03:16 → 3W 01-01 06:20 → 3S 01-01 23:32
PROVIDERS: ADMIT Student in an Organized Health Care Education/Training Program; ATTEND Internal Medicine
PROC: 009U3ZX Drainage of Spinal Canal, Percutaneous Approach, Diagnostic (ICD-10-PCS; principal; 2020-01-04)
PROC: B01BZZZ Fluoroscopy of Spinal Cord (ICD-10-PCS; 2020-01-04)
DX: E10.10 Type 1 diabetes mellitus with ketoacidosis without coma (principal); J18.9 Pneumonia, unspecified organism; G93.41 Metabolic encephalopathy; N17.9 Acute kidney failure, unspecified; Z96.41 Presence of insulin pump (external) (internal); I10 Essential (primary) hypertension; F41.9 Anxiety disorder, unspecified; F32.9 Major depressive disorder, single episode, unspecified; T38.3X6A Underdosing of insulin and oral hypoglycemic [antidiabetic] drugs, initial encounter; E87.5 Hyperkalemia; D72.829 Elevated white blood cell count, unspecified; F20.9 Schizophrenia, unspecified; Z79.899 Other long term (current) drug therapy; Z88.8 Allergy status to other drugs, medicaments and biological substances; Z90.49 Acquired absence of other specified parts of digestive tract; Z87.891 Personal history of nicotine dependence; Z91.128 Patient's intentional underdosing of medication regimen for other reason; Z79.4 Long term (current) use of insulin
CPT/HCPCS: 36415; 36600; 62328; 70450; 70553; 71046; 80048; 80053; 80202; 81001; 82140; 82803; 82945; 82947; 82962; 83036; 83735; 84100; 84157; 84166; 84443; 85025; 85027; 85610; 85730; 86617; 86701; 87040; 87070; 87086; 87205; 87252; 87498; 87529; 89050; 93005; 93010; 96361; 96365; 96366; 99285; J0133; J1642; J1644; J1815; J1956; J2185; J3370; J3480; J3490; J7030; J7050; J7060; J7120

== ENCOUNTER 2020-01-16 21:07 | Inpatient (IN) | payer MEDICARE, OTHER ==
--- NOTE | 2020-01-16 21:51 | ER Document Report ---
ED Medical Screen (RME) - General Chief Complaint: General Weakness Stated Complaint: BLOOD SUGAR PROBLEM Time Seen by Provider: 01/16/20 21:39 Primary Care Provider: DL LEDBETTER FNP-C [Primary Care Provider] - Follow up as needed Notes: HPI:59-year-old female who is an insulin-dependent diabetic presenting to the emergency department for evaluation of increasing fatigue weakness and shortness of breath over the last 24 to 48 hours. Patient states she was recently released from the hospital for DKA and pneumonia. Patient states she was not sent home on antibiotics. Patient does not normally have to use oxygen at home but was having increasing shortness of breath today PHYSICAL EXAMINATION: Patient appears chronically ill. She appears fatigued. Lung sounds decreased on the right side. Patient hypoxic with a pulse oximetry of 89% on room air sitting without exertion improved to 96% on 2 L nasal cannula I have greeted and performed a rapid initial assessment of this patient. A comprehensive ED assessment and evaluation of the patient, analysis of test results and completion of medical decision making process will be conducted by an additional ED providers. TRAVEL OUTSIDE OF THE [place] IN LAST 30 DAYS: No - Related Data Allergies/Adverse Reactions: cephalexin monohydrate [From Keflex] Allergy (Verified 01/16/20 21:33) iodine [Iodine] Allergy (Verified 01/16/20 21:33) Past Medical History - Social History Frequency of alcohol use: None Drug Abuse: None - Past Medical History Cardiac Medical History: Reports: Hx Hypertension Endocrine Medical History: Reports: Hx Diabetes Mellitus Type 1 Renal/ Medical History: Denies: Hx Peritoneal Dialysis Psychiatric Medical History: Reports: Hx Depression Past Surgical History: Reports: Hx Abdominal Surgery, Hx Appendectomy, Hx Breast Surgery - left masectomy, Hx Section, Hx Cholecystectomy - Immunizations Immunizations up to date: Yes Hx Diphtheria, Pertussis, Tetanus Vaccination: Yes Physical Exam - Vital signs Vitals: Temp Pulse Resp BP Pulse Ox 98.2 F 102 H 16 123/52 L 89 L 01/16/20 21:20 01/16/20 21:20 01/16/20 21:20 01/16/20 21:20 01/16/20 21:20 Course - Vital Signs Vital signs: Temp Pulse Resp BP Pulse Ox 98.2 F 102 H 16 123/52 L 89 L 01/16/20 21:20 01/16/20 21:20 01/16/20 21:20 01/16/20 21:20 01/16/20 21:20 Doctor's Discharge - Discharge Referrals: DL LEDBETTER FNP-C [Primary Care Provider] - Follow up as needed
--- NOTE | 2020-01-16 22:44 | RADIOLOGY REPORT (SQ) ---
EXAM DESCRIPTION: XR CHEST 1 VIEW COMPLETED DATE/TME: 01/16/2020 22:13 CLINICAL HISTORY: 59 years, Female, pneumonia EXAM DESCRIPTION: CHEST SINGLE VIEW CLINICAL HISTORY: pneumonia COMPARISON: None. FINDINGS: Single view of the chest is submitted. Central catheter tip is at the inferior right atrium and repositioning is recommended. There are bilateral pulmonary consolidations. Cardiac silhouette is normal. IMPRESSION: Repositioning of the central line is recommended. Bilateral consolidations.
[2020-01-16 22:48] LABS: ABSOLUTE LYMPHOCYTES (AUTO) 1.1 10^3/uL (0.5-4.7); ABSOLUTE MONOCYTES (AUTO) 0.4 10^3/uL (0.1-1.4); RED CELL DISTRIBUTION WIDTH 13.7 % (11.5-14.0); TOTAL CELLS COUNTED % (AUTO) 100 %
[2020-01-16 22:59] LABS: ABSOLUTE NEUT (AUTO) 8.3 10^3/uL (1.7-8.2); BASOPHILS % (AUTO) 0.4 % (0-2); EOSINOPHILS % (AUTO) 0.2 % (0-6); HEMATOCRIT 32.9 % (36.0-47.0); HEMOGLOBIN 11.1 g/dL (12.0-15.5); MEAN CORPUSCULAR HEMOGLOBIN 29.6 pg (27.0-33.4); MEAN CORPUSCULAR HGB CONC 33.6 g/dL (32.0-36.0); MEAN CORPUSCULAR VOLUME 88 fl (80-97); MONOCYTES % (AUTO) 4.4 % (3-13); PLATELET COUNT 439 10^3/uL (150-450); RED BLOOD COUNT 3.74 10^6/uL (3.72-5.28); WHITE BLOOD COUNT 9.9 10^3/uL (4.0-10.5)
[2020-01-16 23:05] LABS: APPEARANCE,URINE CLOUDY; BILIRUBIN,URINE NEGATIVE (NEGATIVE); COLOR,URINE AMBER; GLUCOSE, URINE 150 mg/dL (NEGATIVE); KETONES,URINE TRACE mg/dL (NEGATIVE); LEUKOCYTE ESTERASE,URINE TRACE (NEGATIVE); NITRITE,URINE NEGATIVE (NEGATIVE); PROTEIN,URINE 100 mg/dL (NEGATIVE); URINE SPECIFIC GRAVITY 1.023; UROBILINOGEN,URINE NEGATIVE mg/dL (<2.0)
[2020-01-16 23:06] LABS: ALBUMIN 3.6 g/dL (3.5-5.0); ALKALINE PHOSPHATASE 214 U/L (38-126); ANION GAP 12 (5-19); ASPARTATE AMINO TRANSFERASE 46 U/L (14-36); BILIRUBIN,DIRECT 0.2 mg/dL (0.0-0.4); BILIRUBIN,TOTAL 0.6 mg/dL (0.2-1.3); BLOOD UREA NITROGEN 15 mg/dL (7-20); CALCIUM 9.4 mg/dL (8.4-10.2); CARBON DIOXIDE 30 mmol/L (22-30); CHLORIDE 87 mmol/L (98-107); GLUCOSE 173 mg/dL (75-110); POTASSIUM 4.2 mmol/L (3.6-5.0); TOTAL PROTEIN 7.1 g/dL (6.3-8.2)
[2020-01-16 23:17] LABS: NT PRO BNP 530 pg/mL (<125)
[2020-01-16 23:18] LABS: TROPONIN I < 0.012 ng/mL
[2020-01-16] MEDS ORDERED: NORMAL SALINE 1000 ML 1,000 ML IV ONE (23:57)
[2020-01-17] MEDS ORDERED: METHYLPREDNISOLONE INJ 125 MG/2 ML SDV IV ONE (01:00)
[2020-01-17] MEDS ORDERED: DIPHENHYDRAMINE HCL 50 MG/ML VIAL IV ONE (01:00)
[2020-01-17] MEDS ORDERED: FAMOTIDINE INJ/PF 20 MG/2 ML SDV IV ONE (01:03)
--- NOTE | 2020-01-17 04:46 | ER Document Report ---
ED General - General Chief Complaint: General Weakness Stated Complaint: BLOOD SUGAR PROBLEM Time Seen by Provider: 01/16/20 21:39 Mode of Arrival: Ambulatory Information source: Patient Notes: This 59-year-old woman presents to the emergency department with a 1 week history of feeling poorly with fatigue, body aches and pains, decreased appetite and shortness of breath. They her symptoms were worsened and she came to the hospital for further evaluation and treatment. Medical history significant for insulin-dependent diabetic. She was recently hospital for diabetic ketoacidosis and pneumonia. States that she has increasing fatigue weakness and shortness of breath over the last 24 to 48 hours. Patient states she was not sent home on antibiotics. Patient does not normally have to use oxygen at home but was having increasing shortness of breath today, her O2 sat was 87% on room air at the time of evaluation in triage. Patient was placed on 2 L O2 with an improvement in mid 90s. TRAVEL OUTSIDE OF THE [place] IN LAST 30 DAYS: No - Related Data Allergies/Adverse Reactions: cephalexin monohydrate [From Keflex] Allergy (Verified 01/17/20 09:32) iodine [Iodine] Allergy (Verified 01/17/20 09:32) rash and swelling to contact location Past Medical History - General Information source: Patient - Social History Smoking Status: Former Smoker Frequency of alcohol use: None Drug Abuse: None Family History: Reviewed & Not Pertinent - Past Medical History Cardiac Medical History: Reports: Hx Hypertension Endocrine Medical History: Reports: Hx Diabetes Mellitus Type 1 Renal/ Medical History: Denies: Hx Peritoneal Dialysis Psychiatric Medical History: Reports: Hx Depression Past Surgical History: Reports: Hx Abdominal Surgery, Hx Appendectomy, Hx Breast Surgery - left masectomy, Hx Section, Hx Cholecystectomy - Immunizations Immunizations up to date: Yes Hx Diphtheria, Pertussis, Tetanus Vaccination: Yes Review of Systems - Review of Systems Notes: Constitutional: + Fatigue HENT: Negative for sore throat. Eyes: Negative for visual changes. Cardiovascular: Negative for chest pain. Respiratory: See HPI Gastrointestinal: Negative for abdominal pain, vomiting or diarrhea. Genitourinary: Negative for dysuria. Musculoskeletal: Negative for back pain. Skin: Negative for rash. Neurological: Negative for headaches, weakness or numbness. 10 point ROS negative except as marked above and in HPI. Physical Exam - Vital signs Vitals: Temp Pulse BP 98.2 F 102 H 123/52 L 12/08/20 21:18 01/16/20 21:18 01/16/20 21:18 - Notes Notes: PHYSICAL EXAMINATION: Physical Exam: General: Ill ill appearing 59-year-old woman decreased oxygen saturation HEENT: NC/AT, pupils equal round and reactive to light, MM moist,nares clear, oropharynx clear, airway patent Neck: supple, no adenopathy, no masses. Good range of motion Lungs: Coarse breath sounds, no wheezes or rales CVS: Regular rate and rhythm no murmur gallop or rub Abdomen: Soft, active, nontender, no masses, no hepatosplenomegaly Ext: No edema, clubbing or cyanosis. Neuro: Alert and responsive, moving all 4 extremities on command, cranial nerves intact, no focal findings Skin: Intact no open lesions, no rash PSYCH: Normal mood, normal affect. Course - Re-evaluation Re-evalutation: 01/17/20 04:54 Patient has bilateral infiltrates on chest x-ray, coronavirus testing is positive in the emergency department. Patient has decreased O2 sat and compromised respiratory status with coronavirus infection. - Vital Signs Vital signs: Temp Pulse Resp BP Pulse Ox 97.6 F 88 18 109/39 L 96 01/18/20 20:57 01/19/20 02:00 01/18/20 15:20 01/18/20 15:20 01/18/20 15:20 - Laboratory Results Result Diagrams: 01/18/20 06:45 01/18/20 06:45 Laboratory Results Interpreted: 01/16/20 01/16/20 01/16/20 21:12 22:34 22:34 Hgb 11.1 L Hct 32.9 L Lymph % (Auto) 11.0 L Absolute Neuts (auto) 8.3 H Seg Neutrophils % 84.0 H ESR Sodium 128.6 L Chloride 87 L Glucose 173 H POC Glucose 144 H Ferritin AST 46 H Alkaline Phosphatase 214 H C-Reactive Protein NT-Pro-B Natriuret Pep Urine Protein Urine Glucose (UA) Urine Ketones Ur Leukocyte Esterase SARS-CoV-2 Rap RNA(RT-PCR) 01/16/20 01/16/20 01/16/20 22:34 22:34 22:38 Hgb Hct Lymph % (Auto) Absolute Neuts (auto) Seg Neutrophils % ESR Sodium Chloride Glucose POC Glucose 165 H Ferritin AST Alkaline Phosphatase C-Reactive Protein NT-Pro-B Natriuret Pep 530 H Urine Protein 100 H Urine Glucose (UA) 150 H Urine Ketones TRACE H Ur Leukocyte Esterase TRACE H SARS-CoV-2 Rap RNA(RT-PCR) 01/17/20 01/17/20 01/17/20 03:15 05:07 05:07 Hgb Hct Lymph % (Auto) Absolute Neuts (auto) Seg Neutrophils % ESR 116 H Sodium Chloride Glucose POC Glucose Ferritin 748.00 H AST Alkaline Phosphatase C-Reactive Protein 269.0 H NT-Pro-B Natriuret Pep Urine Protein Urine Glucose (UA) Urine Ketones Ur Leukocyte Esterase SARS-CoV-2 Rap RNA(RT-PCR) POSITIVE H 01/17/20 04:59 I have reviewed laboratory data and used this information for the treatment decisions regarding the patient. Critical Laboratory Results Reviewed: Yes - Positive rapid Covid 19 test. Attending or Supervising Physician who Reviewed Labs: DAVID CROW - Radiology Results Radiology Results Interpreted: 01/17/20 05:00 Chest X-Ray 01/16/20 21:40 IMPRESSION: Repositioning of the central line is recommended. Bilateral consolidations. Critical Radiology Results Reviewed: Yes - Bibasilar infiltrates Radiologist mentions repositioning the line. This is a Port-A-Cath which the patient has had for approximately 4 years. Adjustment of this line cannot be done in the emergency department. Attending or Supervising Physician who Reviewed Radiology: DAVID CROW - EKG Interpretation by Me Rate: Normal - EKG interpreted by Dr. Crow: Normal sinus rhythm, rate 97, NM interval 132 ms QT interval 340 ms, normal axis,borderline T wave abn inferior leads, no ischemic findings, compared to EKG dated 12/31/19, sinus tachycardia is no longer noted.. Interpretation Bnormal EKG Critical Care Note - Critical Care Note Total time excluding time spent on procedures (mins): 45 - Critical care time spent obtaining history from patient or surrogate, discussions with consultants, development of treatment plan with patient or surrogate, evaluation of patient's response to treatment, examination of patient, ordering and performing treatments and interventions, ordering and review of laboratory studies, re- evaluation of patient's condition, ordering and review of radiographic studies and review of old charts Discharge - Discharge Clinical Impression: Pneumonia due to human coronavirus, Low oxygen saturation, Insulin dependent diabetes mellitus Condition: Good Disposition: ADMITTED INPATIENT Admitting Provider: Dr Hernandez - Hospitalist service Unit Admitted: Medical Floor
[2020-01-17] MEDS ORDERED: DEXAMETHASONE SOD PHOS INJ 10 MG/1 ML VIAL IV ONE (05:11)
[2020-01-17] MEDS ORDERED: DEXTROSE 40% GEL 15 GM TUBE PO PRN ×2 (06:09)
[2020-01-17] MEDS ORDERED: DEXTROSE 50%-WATER 25 GM/50 ML DISP.SYRIN IV PRN ×2 (06:09)
[2020-01-17] MEDS ORDERED: GLUCAGON,HUMAN RECOMB 1 MG INJ IM PRN (06:09)
[2020-01-17 06:46] LABS: INTERNATIONAL RATION (INR) 1.09; PARTIAL THROMBOPLASTIN TIME 33.8 SEC (23.5-35.8); PROTHROMBIN TIME 14.3 SEC (11.4-15.4)
--- NOTE | 2020-01-17 09:01 | PDOC H&P ---
History of Present Illness Admission Date/PCP: 01/17/20 05:24 JALIL FRAGOSO Patient complains of: Shortness of breath History of Present Illness: CHARLIE PERKINS is a 59 year old female Patient was recently hospitalized between December 31 2 January 09 with diabetic ketoacidosis, poorly controlled diabetes. She had abnormal MRI of the brain and the possibility of meningitis/encephalitis was raised. Eventually these conditions were ruled out. She was on insulin pump, the DKA was related to insulin pump malfunction or poor management. The patient was discharged on subcutaneous insulin. Apparently she did not fill the prescription for the subcutaneous insulin, she started using her insulin pump again. For the last 2 days she was developing dry cough, increasing shortness of breath and feeling very weak. She came to the emergency department , she was diagnosed with coronavirus, bilateral viral pneumonia. She was placed on oxygen and she was given dexamethasone. When I arrived to see her she was on 2 L/min nasal oxygen and she did not appear to be in major distress. Past Medical History Cardiac Medical History: Reports: Hypertension Endocrine Medical History: Reports: Diabetes Mellitus Type 1 Psychiatric Medical History: Reports: Depression Past Surgical History Past Surgical History: Reports: Appendectomy, Section, Cholecystectomy Social History Smoking Status: Former Smoker Frequency of Alcohol Use: None Hx Recreational Drug Use: No Drugs: None Hx Prescription Drug Abuse: No Family History Family History: Reviewed & Not Pertinent Parental Family History Reviewed: Yes Children Family History Reviewed: Yes Sibling(s) Family History Reviewed.: Yes Medication/Allergy Home Medications: Alprazolam [Xanax 0.5 mg Tablet] 0.5 mg PO ACLUNCH 01/01/20 Anastrozole [Arimidex 1 mg Tablet] 1 mg PO QHS 01/01/20 Bupropion HCl [Bupropion HCl Sr] 150 mg PO Q12 01/01/20 Fluoxetine HCl [Prozac] 80 mg PO QAM 01/01/20 Gabapentin [Neurontin 100 mg Capsule] 100 mg PO QHS 01/01/20 Hydroxyzine Pamoate [Vistaril 50 mg Capsule] 50 mg PO Q12 01/01/20 Losartan Potassium [Cozaar 25 mg Tablet] 25 mg PO DAILY 01/01/20 Metoclopramide HCl [Reglan] 10 mg PO BID 01/01/20 Montelukast Sodium [Singulair 10 mg Tablet] 10 mg PO QHS 01/01/20 Multivitamin [Tab-A-Cintia (Multiple Vitamin) Tablet] 1 tab PO DAILY 01/01/20 Calcium Carbonate/Vitamin D3 [Calcium 600-Vit D3 400 Tablet] 1 each PO DAILY 01/07/20 Gabapentin [Neurontin 100 mg Capsule] 100 mg PO DAILYP PRN 01/07/20 L. Acidophilus/L.bulgaricus [Lactobacillus Tablet] 1 each PO DAILY 01/07/20 Insulin Glargine,Hum.rec.anlog [Lantus Insulin 100 Unit/1 ml 10 ml] 25 unit SUBCUT QHS 30 Days #2 vial 01/10/20 Insulin Lispro [Humalog Insulin (Lispro) 100 unit/mL] 0 - 12 unit SUBCUT ACHS unit 01/10/20 Insulin Lispro [Humalog Insulin (Lispro) 100 unit/mL] 10 unit SUBCUT AC 30 Days #1 vial 01/10/20 Allergies/Adverse Reactions: cephalexin monohydrate [From Keflex] Allergy (Verified 01/16/20 21:33) iodine [Iodine] Allergy (Verified 01/17/20 00:17) rash and swelling to contact location Review of Systems Constitutional: PRESENT: fatigue, weakness Eyes: ABSENT: visual disturbances Ears: ABSENT: hearing changes Cardiovascular: ABSENT: chest pain, edema Respiratory: PRESENT: cough, dyspnea. ABSENT: hemoptysis, sputum Gastrointestinal: ABSENT: abdominal pain, diarrhea, nausea, vomiting Genitourinary: ABSENT: dysuria Musculoskeletal: ABSENT: deformity Integumentary: ABSENT: rash Neurological: ABSENT: confusion Endocrine: PRESENT: as per HPI Physical Exam Vital Signs: Temp Pulse Resp BP Pulse Ox 98.7 F 102 H 20 118/55 L 95 01/17/20 03:30 01/16/20 21:20 01/17/20 06:00 01/17/20 06:00 01/17/20 06:00 Intake & Output 01/16/20 01/17/20 01/18/20 06:59 06:59 06:59 Weight 67.6 kg General appearance: PRESENT: no acute distress Head exam: PRESENT: atraumatic Eye exam: ABSENT: conjunctival injection Ear exam: PRESENT: normal external ear exam Mouth exam: PRESENT: moist Throat exam: ABSENT: post pharyngeal erythema, tonsillar erythema Neck exam: ABSENT: JVD, lymphadenopathy, meningismus Respiratory exam: PRESENT: crackles. ABSENT: accessory muscle use Cardiovascular exam: PRESENT: RRR Pulses: PRESENT: normal radial pulses Vascular exam: PRESENT: normal capillary refill GI/Abdominal exam: PRESENT: soft. ABSENT: distended, tenderness Extremities exam: ABSENT: calf tenderness, joint swelling, pedal edema Musculoskeletal exam: PRESENT: ambulatory Neurological exam: PRESENT: alert, oriented to person, oriented to place, oriented to time, oriented to situation Skin exam: ABSENT: rash Results Laboratory Results: 01/16/20 22:34 01/16/20 22:34 01/16/20 01/16/20 01/16/20 22:34 22:34 22:34 WBC 9.9 RBC 3.74 Hgb 11.1 L Hct 32.9 L MCV 88 MCH 29.6 MCHC 33.6 RDW 13.7 Plt Count 439 Seg Neutrophils % 84.0 H Sodium 128.6 L Potassium 4.2 Chloride 87 L Carbon Dioxide 30 Anion Gap 12 BUN 15 Creatinine 0.88 Est GFR ( Amer) > 60 Glucose 173 H Calcium 9.4 Ferritin Total Bilirubin 0.6 AST 46 H Alkaline Phosphatase 214 H C-Reactive Protein Total Protein 7.1 Albumin 3.6 Urine Color LUCY Urine Appearance CLOUDY Urine pH 5.0 Ur Specific [place] 1.023 Urine Protein 100 H Urine Glucose (UA) 150 H Urine Ketones TRACE H Urine Blood NEGATIVE Urine Nitrite NEGATIVE Ur Leukocyte Esterase TRACE H Urine WBC (Auto) 5 Urine RBC (Auto) 16 Blood Type 01/17/20 01/17/20 01/17/20 05:07 05:57 06:44 WBC RBC Hgb Hct MCV MCH MCHC RDW Plt Count Seg Neutrophils % Sodium Potassium Chloride Carbon Dioxide Anion Gap BUN Creatinine Est GFR ( Amer) Glucose Calcium Ferritin 748.00 H 663.00 H Total Bilirubin AST Alkaline Phosphatase C-Reactive Protein 269.0 H Total Protein Albumin Urine Color Urine Appearance Urine pH Ur Specific [place] Urine Protein Urine Glucose (UA) Urine Ketones Urine Blood Urine Nitrite Ur Leukocyte Esterase Urine WBC (Auto) Urine RBC (Auto) Blood Type A POSITIVE 01/16/20 01/17/20 22:34 05:57 Troponin I < 0.012 < 0.012 NT-Pro-B Natriuret Pep 530 H Impressions: Chest X-Ray 01/16/20 21:40 IMPRESSION: Repositioning of the central line is recommended. Bilateral consolidations. Assessment and Plan - Diagnosis (1) Pneumonia due to human coronavirus Is this a current diagnosis for this admission?: Yes Plan: She has bilateral pulmonary infiltrates. She is going to receive convalescent plasma. She was started on 6 mg dexamethasone daily, continue. Isolation protocol. (2) Acute respiratory failure with hypoxia Is this a current diagnosis for this admission?: Yes Plan: Continue oxygen therapy. (3) Diabetes mellitus Qualifiers: Diabetes mellitus type: type 1 Diabetes mellitus complication status: without complication Qualified Code(s): E10.9 - Type 1 diabetes mellitus without complications Is this a current diagnosis for this admission?: Yes Plan: She is using her insulin pump again. We are going to let her manage her insulin pump. We are going to monitor blood sugar closely and taking appropriate actions as needed. (4) Elevated d-dimer Is this a current diagnosis for this admission?: Yes Plan: Because of the high thromboembolism risk she is going to have a perfusion lung scan. If needed she is going to be anticoagulated, if not she is going to re ceive DVT prophylaxis with Lovenox. (5) Anemia Qualifiers: Anemia type: other cause Other causes of anemia: other cause, not clas sified Qualified Code(s): D64.89 - Other specified anemias Is this a current diagnosis for this admission?: Yes Plan: Monitor hemoglobin. Anemia studies. - Plan Summary Summary: Patient was admitted with hypoxemia secondary to bilateral viral pneumonia caused by coronavirus. She has elevated D-dimer, she is allergic to intravenous contrast dye. She is going to have a lung perfusion scan. - Time Time Spent with patient: 35 or more minutes Medications reviewed and adjusted accordingly: Yes Anticipated Discharge Disposition: Home, Self Care Anticipated Discharge Timeframe: within 72 hours - Inpatient Certification Medical Necessity: Significant Comorbidiites Make Outpatient Treatment Too Risky, Need Close Monitoring Due to Risk of Patient Decompensation, Risk of Complication if Not Cared For in Hospital
[2020-01-17] MEDS ORDERED: ENOXAPARIN SODIUM INJ 40 MG/0.4 ML DISP.SYRIN SUBCUT SCH (10:00)
[2020-01-17] MEDS: ASCORBIC ACID 500 MG TABLET PO SCH ×2 (10:10→17:14)
[2020-01-17] MEDS: CHOLECALCIFEROL (D3) 1,000 UNIT (25 MCG) TABLET PO SCH (10:10)
[2020-01-17] MEDS: ZINC SULFATE 220 MG CAPSULE PO SCH (10:11)
--- NOTE | 2020-01-17 10:47 | PDOC PROGRESS REPORT ---
Subjective Date:: 01/17/20 Subjective:: The patient is quite somnolent but she likely has been up most of the night. She does take time to answer questions but she does formulate an answer. She appears comfortable on nasal cannula. Reason For Visit: ACUTE HYPOXEMIC RESPIRATORY FAILURE COVID Physical Exam Vital Signs: Temp Pulse Resp BP Pulse Ox 98.6 F 95 25 H 132/63 H 95 01/17/20 10:13 01/17/20 10:13 01/17/20 10:13 01/17/20 10:13 01/17/20 10:13 Intake & Output 01/16/20 01/17/20 01/18/20 06:59 06:59 06:59 Intake Total 209 Balance 209 Weight 67.6 kg General appearance: PRESENT: mild distress Head exam: PRESENT: atraumatic, normocephalic Respiratory exam: PRESENT: rales, symmetrical, tachypnea - Mild tachypnea, unlabored. ABSENT: prolonged expiratory phas, rhonchi, wheezes Cardiovascular exam: PRESENT: RRR, +S1, +S2. ABSENT: bradycardia, diastolic murmur, irregular rhythm, systolic murmur, tachycardia GI/Abdominal exam: PRESENT: normal bowel sounds, soft. ABSENT: distended, guarding, tenderness Rectal exam: PRESENT: deferred Extremities exam: ABSENT: pedal edema Musculoskeletal exam: PRESENT: normal inspection. ABSENT: deformity, dislocation Neurological exam: PRESENT: awake, oriented to person, oriented to place. ABSENT: alert - Slightly somnolent Psychiatric exam: ABSENT: agitated, anxious Focused psych exam: ABSENT: delusional, paranoid, restlessness Results Laboratory Results: 01/16/20 22:34 01/16/20 22:34 01/16/20 01/16/20 01/16/20 22:34 22:34 22:34 WBC 9.9 RBC 3.74 Hgb 11.1 L Hct 32.9 L MCV 88 MCH 29.6 MCHC 33.6 RDW 13.7 Plt Count 439 Seg Neutrophils % 84.0 H Sodium 128.6 L Potassium 4.2 Chloride 87 L Carbon Dioxide 30 Anion Gap 12 BUN 15 Creatinine 0.88 Est GFR ( Amer) > 60 Glucose 173 H Calcium 9.4 Ferritin Total Bilirubin 0.6 AST 46 H Alkaline Phosphatase 214 H C-Reactive Protein Total Protein 7.1 Albumin 3.6 Urine Color LUCY Urine Appearance CLOUDY Urine pH 5.0 Ur Specific [place] 1.023 Urine Protein 100 H Urine Glucose (UA) 150 H Urine Ketones TRACE H Urine Blood NEGATIVE Urine Nitrite NEGATIVE Ur Leukocyte Esterase TRACE H Urine WBC (Auto) 5 Urine RBC (Auto) 16 Blood Type 01/17/20 01/17/20 01/17/20 05:07 05:57 06:44 WBC RBC Hgb Hct MCV MCH MCHC RDW Plt Count Seg Neutrophils % Sodium Potassium Chloride Carbon Dioxide Anion Gap BUN Creatinine Est GFR ( Amer) Glucose Calcium Ferritin 748.00 H 663.00 H Total Bilirubin AST Alkaline Phosphatase C-Reactive Protein 269.0 H Total Protein Albumin Urine Color Urine Appearance Urine pH Ur Specific [place] Urine Protein Urine Glucose (UA) Urine Ketones Urine Blood Urine Nitrite Ur Leukocyte Esterase Urine WBC (Auto) Urine RBC (Auto) Blood Type A POSITIVE 01/16/20 01/17/20 22:34 05:57 Troponin I < 0.012 < 0.012 NT-Pro-B Natriuret Pep 530 H Impressions: Chest X-Ray 01/16/20 21:40 IMPRESSION: Repositioning of the central line is recommended. Bilateral consolidations. Assessment and Plan - Diagnosis (1) Pneumonia due to human coronavirus Is this a current diagnosis for this admission?: Yes (2) Acute respiratory failure with hypoxia Is this a current diagnosis for this admission?: Yes (3) Hyperglycemia due to type 1 diabetes mellitus Is this a current diagnosis for this admission?: Yes (4) Elevated d-dimer Is this a current diagnosis for this admission?: Yes (5) Depression with anxiety Is this a current diagnosis for this admission?: Yes (6) Anemia Qualifiers: Anemia type: other cause Other causes of anemia: other cause, not c lassified Qualified Code(s): D64.89 - Other specified anemias Is this a current diagnosis for this admission?: Yes - Plan Summary Summary: 01/17/2020 The patient has received her convalescent plasma. I have also ordered ivermectin and she is on steroids. I had a long talk with the patient's daughter. The patient does not actually take the medications as listed and so we made adjustments. As an example she was listed as taking Prozac 80 mg daily and she has not been taking any. So I have restarted at 40 mg. She also takes gabapentin 100 mg at night and then if needed during the day. For her diabetes we are going to use Lantus and sliding scale Humalog. It seems to be extremely effective during her last admission. A VQ scan is actually pending due to the elevated D-dimer. The patient also had elevated markers typically seen with Covid infection. I have adjusted the medications for her anxiety/depression as well. Patient was admitted with hypoxemia secondary to bilateral viral pneumonia caused by coronavirus. She has elevated D-dimer, she is allergic to intravenous contrast dye. She is going to have a lung perfusion scan. - Time Time Spent with patient: 15-24 minutes Medications reviewed and adjusted accordingly: Yes Anticipated Discharge Disposition: Home with Home Health Anticipated Discharge Timeframe: Unknown
[2020-01-17] MEDS ORDERED: ALPRAZOLAM 0.25 MG TABLET PO PRN (11:02)
[2020-01-17] MEDS ORDERED: LOSARTAN POTASSIUM 25 MG TABLET PO ONE (11:04)
[2020-01-17] MEDS ORDERED: IVERMECTIN 3 MG TABLET PO ONE (12:00)
[2020-01-17] MEDS: INSULIN REG, HUMAN 100 UNIT/ML 3 ML VIAL (PYX) SUBCUT SCH ×3 (12:18→22:42)
--- NOTE | 2020-01-17 15:47 | RADIOLOGY REPORT (SQ) ---
EXAM DESCRIPTION: NM LUNG PERFUSION SCAN IMAGES COMPLETED DATE/TIME: 01/17/2020 2:16 pm REASON FOR STUDY: SOB, DECREASED SATS COMPARISON: 01/16/2020 RADIONUCLIDE AND DOSE: 5.39 millicuries TC-99m MAA The route of agent administration: Intravenous TECHNIQUE: Eight views of the lungs acquired following injection of MAA. LIMITATIONS: None. FINDINGS: PERFUSION: Multiple focal photopenic areas are seen predominantly of the left upper and lo wer lobes. OTHER: No other significant finding. IMPRESSION: Multiple photopenic areas involving the left upper and lower lobes may represent pulmona ry emboli. TECHNICAL DOCUMENTATION: JOB ID: [id number] 2010 [employer]- All Rights Reserved Reading location - IP/workstation name: [email or web address]
[2020-01-17] MEDS ORDERED: METOCLOPRAMIDE HCL 10 MG TABLET PO SCH (16:00)
[2020-01-17] MEDS: METOCLOPRAMIDE HCL 10 MG TABLET PO SCH ×2 (17:15→22:44)
[2020-01-17] MEDS ORDERED: GABAPENTIN 100 MG CAPSULE PO SCH ×2 (18:00→22:00)
--- NOTE | 2020-01-17 18:44 | EKG REPORT ---
SEVERITY:- BORDERLINE ECG - SINUS RHYTHM PROBABLE LEFT ATRIAL ABNORMALITY BORDERLINE T ABNORMALITIES, INFERIOR LEADS : Confirmed by: Alberto Wilkins 17-Jan-2020 18:43:47
--- NOTE | 2020-01-17 19:46 | Progress Note ---
Provider Note Provider Note: Ventilation perfusion scan was positive for pulmonary embolism. I started the patient on therapeutic Lovenox.
[2020-01-17] MEDS ORDERED: HYDROXYZINE PAMOATE 50 MG CAPSULE PO SCH (22:00)
[2020-01-17] MEDS ORDERED: INSULIN GLARGINE,HUM.REC.ANLOG 1,000 UNIT/10 ML VIAL SUBCUT SCH (22:00)
[2020-01-17] MEDS: METHYLPREDNISOLONE INJ 40 MG/1 ML SDV IV SCH (22:43)
[2020-01-17] MEDS: GABAPENTIN 100 MG CAPSULE PO SCH (22:43)
[2020-01-17] MEDS: HYDROXYZINE PAMOATE 25 MG CAPSULE PO SCH (22:44)
[2020-01-17] MEDS: ASPIRIN 81 MG TABLET, ENT COATED PO SCH (22:44)
[2020-01-17] MEDS: MONTELUKAST SODIUM 10 MG TABLET PO SCH (22:44)
[2020-01-17] MEDS: BUPROPION HCL 75 MG TABLET PO SCH (22:44)
[2020-01-17] MEDS: ANASTROZOLE 1 MG TABLET PO SCH (22:45)
[2020-01-17] MEDS: ENOXAPARIN SODIUM INJ 60 MG/0.6 ML DISP.SYRIN SUBCUT SCH (22:45)
[2020-01-17] MEDS ORDERED: INSULIN GLARGINE,HUM.REC.ANLOG 1,000 UNIT/10 ML VIAL (PYX) SUBCUT ONE (22:58)
[2020-01-18 00:23] LABS: APPEARANCE,URINE CLEAR; BILIRUBIN,URINE NEGATIVE (NEGATIVE); COLOR,URINE YELLOW; GLUCOSE, URINE >=500 mg/dL (NEGATIVE); KETONES,URINE 20 mg/dL (NEGATIVE); LEUKOCYTE ESTERASE,URINE NEGATIVE (NEGATIVE); NITRITE,URINE NEGATIVE (NEGATIVE); PROTEIN,URINE NEGATIVE (NEGATIVE); URINE SPECIFIC GRAVITY 1.025; UROBILINOGEN,URINE NEGATIVE mg/dL (<2.0)
[2020-01-18 07:07] LABS: ABSOLUTE LYMPHOCYTES (AUTO) 0.7 10^3/uL (0.5-4.7); ABSOLUTE MONOCYTES (AUTO) 0.2 10^3/uL (0.1-1.4); ABSOLUTE NEUT (AUTO) 6.6 10^3/uL (1.7-8.2); BASOPHILS % (AUTO) 0.1 % (0-2); HEMATOCRIT 27.9 % (36.0-47.0); HEMOGLOBIN 9.4 g/dL (12.0-15.5); LYMPHOCYTES % (AUTO) 9.7 % (13-45); MEAN CORPUSCULAR HEMOGLOBIN 30.4 pg (27.0-33.4); MEAN CORPUSCULAR HGB CONC 33.6 g/dL (32.0-36.0); MEAN CORPUSCULAR VOLUME 91 fl (80-97); PLATELET COUNT 438 10^3/uL (150-450); RED BLOOD COUNT 3.08 10^6/uL (3.72-5.28); RED CELL DISTRIBUTION WIDTH 13.5 % (11.5-14.0); SEGMENTED NEUTROPHILS % (AUTO) 87.2 % (42-78); TOTAL CELLS COUNTED % (AUTO) 100 %; WHITE BLOOD COUNT 7.6 10^3/uL (4.0-10.5)
[2020-01-18 07:21] LABS: ALBUMIN 3.1 g/dL (3.5-5.0); ALKALINE PHOSPHATASE 164 U/L (38-126); ANION GAP 14 (5-19); ASPARTATE AMINO TRANSFERASE 31 U/L (14-36); BILIRUBIN,DIRECT 0.3 mg/dL (0.0-0.4); BILIRUBIN,TOTAL 0.4 mg/dL (0.2-1.3); BLOOD UREA NITROGEN 21 mg/dL (7-20); CALCIUM 9.2 mg/dL (8.4-10.2); CARBON DIOXIDE 24 mmol/L (22-30); CHLORIDE 96 mmol/L (98-107); GLUCOSE 357 mg/dL (75-110); TOTAL PROTEIN 6.1 g/dL (6.3-8.2)
[2020-01-18] MEDS: INSULIN REG, HUMAN 100 UNIT/ML 3 ML VIAL (PYX) SUBCUT SCH (08:50)
[2020-01-18] MEDS: METOCLOPRAMIDE HCL 10 MG TABLET PO SCH ×4 (08:51→22:55)
--- NOTE | 2020-01-18 09:48 | PDOC PROGRESS REPORT ---
Subjective Date:: 01/18/20 Subjective:: Patient is resting in bed. She appears quite sluggish. Head is drooping and chelsea isidro has not started to eat breakfast yet. She is still somewhat slow to answer questions. Reason For Visit: ACUTE HYPOXEMIC RESPIRATORY FAILURE COVID Physical Exam Vital Signs: Temp Pulse Resp BP Pulse Ox 98.6 F 86 18 110/55 L 98 01/18/20 08:35 01/18/20 08:35 01/18/20 08:35 01/18/20 08:35 01/18/20 08:35 Intake & Output 01/17/20 01/18/20 01/19/20 06:59 06:59 06:59 Intake Total 1359 Output Total 600 Balance 759 Weight 67.6 kg 61.7 kg General appearance: PRESENT: cooperative, mild distress, well-developed Head exam: PRESENT: atraumatic, normocephalic Respiratory exam: PRESENT: clear to auscultation zohreh, decreased breath sounds - Slightly decreased breath sounds on the right but still clear, symmetrical, unlabored. ABSENT: rales, rhonchi, tachypnea, wheezes Cardiovascular exam: PRESENT: RRR, +S1, +S2. ABSENT: bradycardia, diastolic murmur, irregular rhythm, systolic murmur, tachycardia GI/Abdominal exam: PRESENT: normal bowel sounds, soft. ABSENT: distended, tenderness Rectal exam: PRESENT: deferred Gentrourinary exam: ABSENT: indwelling catheter Extremities exam: ABSENT: pedal edema Musculoskeletal exam: PRESENT: normal inspection. ABSENT: deformity, dislocation Neurological exam: PRESENT: awake, oriented to person, oriented to place, oriented to situation, CN II-XII grossly intact. ABSENT: alert - Somewhat sluggish this morning Psychiatric exam: PRESENT: depressed - Appears depressed but this is a chronic diagnosis, flat affect. ABSENT: agitated, anxious Focused psych exam: ABSENT: delusional, paranoid, restlessness Skin exam: PRESENT: dry, pallor, warm. ABSENT: rash Results Laboratory Results: 01/18/20 06:45 01/18/20 06:45 01/17/20 01/18/20 01/18/20 23:55 06:45 06:45 WBC 7.6 RBC 3.08 L Hgb 9.4 L Hct 27.9 L MCV 91 MCH 30.4 MCHC 33.6 RDW 13.5 Plt Count 438 Seg Neutrophils % 87.2 H Sodium 134.1 L Potassium 5.0 Chloride 96 L Carbon Dioxide 24 Anion Gap 14 BUN 21 H Creatinine 0.67 Est GFR ( Amer) > 60 Glucose 357 H Calcium 9.2 Total Bilirubin 0.4 AST 31 Alkaline Phosphatase 164 H Total Protein 6.1 L Albumin 3.1 L Urine Color YELLOW Urine Appearance CLEAR Urine pH 5.0 Ur Specific [employer] 1.025 Urine Protein NEGATIVE Urine Glucose (UA) >=500 H Urine Ketones 20 H Urine Blood NEGATIVE Urine Nitrite NEGATIVE Ur Leukocyte Esterase NEGATIVE Urine WBC (Auto) 1 Urine RBC (Auto) 11 01/16/20 01/17/20 22:34 05:57 Troponin I < 0.012 < 0.012 NT-Pro-B Natriuret Pep 530 H Impressions: Chest X-Ray 01/16/20 21:40 IMPRESSION: Repositioning of the central line is recommended. Bilateral consolidations. Lung Scan-VQ NM 01/17/20 00:00 IMPRESSION: Multiple photopenic areas involving the left upper and lower lobes may represent pulmonary emboli. Assessment and Plan - Diagnosis (1) Pneumonia due to human coronavirus Is this a current diagnosis for this admission?: Yes (2) Acute respiratory failure with hypoxia Is this a current diagnosis for this admission?: Yes (3) Hyperglycemia due to type 1 diabetes mellitus Is this a current diagnosis for this admission?: Yes (4) Elevated d-dimer Is this a current diagnosis for this admission?: Yes (5) Depression with anxiety Is this a current diagnosis for this admission?: Yes (6) Anemia Qualifiers: Anemia type: other cause Other causes of anemia: other cause, not classified Qualified Code(s): D64.89 - Other specified anemias Is this a current diagnosis for this admission?: Yes (7) Pulmonary embolus Qualifiers: Pulmonary embolism type: multiple subsegmental (without acute cor pulmonale) Qualified Code(s): I26.94 - Multiple subsegmental pulmonary emboli without acute cor pulmonale Is this a current diagnosis for this admission?: Yes - Plan Summary Summary: 01/17/2020 The patient has received her convalescent plasma. I have also ordered ivermectin and she is on steroids. I had a long talk with the patient's daughter. The patient does not actually take the medications as listed and so we made adjustments. As an example she was listed as taking Prozac 80 mg daily and she has not been taking any. So I have restarted at 40 mg. She also takes gabapentin 100 mg at night and then if needed during the day. For her diabetes we are going to use Lantus and sliding scale Humalog. It seems to be extremely effective during her last admission. A VQ scan is actually pending due to the elevated D-dimer. The patient also had elevated markers typically seen with Covid infection. I have adjusted the medications for her anxiety/depression as well. Patient was admitted with hypoxemia secondary to bilateral viral pneumonia caused by coronavirus. She has elevated D-dimer, she is allergic to intravenous contrast dye. She is going to have a lung perfusion scan. 01/18/2020 Received first dose of ivermectin yesterday and will receive second dose tomorrow. Spoke with her daughter Adore. Certain medication changes were made including decreasing Vistaril to 25 mg twice daily, utilizing Prozac 40 mg daily when she was not taking any previously. After 40 appears to be too much to start at than I will decrease the dose to 20. We are not using ibuprofen at this time as there is risk with her diabetes and hypertension. Potassium is slightly higher but still within the normal range. Will monitor potassium levels. This could be related to her losartan. Sodium is low but corrects considering her hyperglycemia. Hemoglobin has decreased but anemia studies have been ordered. She remains on nasal cannula at this time. Currently holding on antibiotics as we are giving ivermectin. Because of the elevated glucose checks I have increased her Lantus and given her more aggressive sliding scale. The next step will be to utilize fixed dosing before meals. - Time Time Spent with patient: 15-24 minutes Medications reviewed and adjusted accordingly: Yes Anticipated Discharge Disposition: Home with Home Health Anticipated Discharge Timeframe: Unknown
[2020-01-18] MEDS ORDERED: FLUOXETINE HCL 20 MG CAPSULE PO SCH (10:00)
[2020-01-18] MEDS ORDERED: DEXAMETHASONE SOD PHOS INJ 10 MG/1 ML VIAL IV SCH (10:00)
[2020-01-18] MEDS ORDERED: LACTOBACILLUS ACIDOPHILUS 250 MG TAB PO SCH (10:00)
[2020-01-18] MEDS: ZINC SULFATE 220 MG CAPSULE PO SCH (10:23)
[2020-01-18] MEDS: CHOLECALCIFEROL (D3) 1,000 UNIT (25 MCG) TABLET PO SCH (10:26)
[2020-01-18] MEDS: CALCIUM CARBONATE 600 MG/VITAMIN D3 400 UNIT TABLET PO SCH (10:26)
[2020-01-18] MEDS: FLUOXETINE HCL 20 MG CAPSULE PO SCH (10:26)
[2020-01-18] MEDS: LOSARTAN POTASSIUM 25 MG TABLET PO SCH (10:26)
[2020-01-18] MEDS: MULTIVITAMIN TABLET PO SCH (10:26)
[2020-01-18] MEDS: ASCORBIC ACID 500 MG TABLET PO SCH ×2 (10:26→17:22)
[2020-01-18] MEDS: BUPROPION HCL 75 MG TABLET PO SCH ×2 (10:27→22:55)
[2020-01-18] MEDS: METHYLPREDNISOLONE INJ 40 MG/1 ML SDV IV SCH ×2 (10:27→22:55)
[2020-01-18] MEDS: ENOXAPARIN SODIUM INJ 60 MG/0.6 ML DISP.SYRIN SUBCUT SCH ×2 (10:27→22:55)
[2020-01-18] MEDS: HYDROXYZINE PAMOATE 25 MG CAPSULE PO SCH ×2 (10:27→22:55)
[2020-01-18] MEDS: INSULIN LISPRO 100 UNIT/ML 3 ML VIAL SUBCUT SCH ×3 (11:44→22:55)
[2020-01-18] MEDS ORDERED: INSULIN GLARGINE,HUM.REC.ANLOG 1,000 UNIT/10 ML VIAL SUBCUT SCH (22:00)
[2020-01-18] MEDS: MONTELUKAST SODIUM 10 MG TABLET PO SCH (22:55)
[2020-01-18] MEDS: ASPIRIN 81 MG TABLET, ENT COATED PO SCH (22:55)
[2020-01-18] MEDS: GABAPENTIN 100 MG CAPSULE PO SCH (22:55)
[2020-01-18] MEDS: ANASTROZOLE 1 MG TABLET PO SCH (22:59)
[2020-01-19 06:45] LABS: ABSOLUTE LYMPHOCYTES (AUTO) 0.8 10^3/uL (0.5-4.7); ABSOLUTE MONOCYTES (AUTO) 0.4 10^3/uL (0.1-1.4); ABSOLUTE NEUT (AUTO) 10.3 10^3/uL (1.7-8.2); ABSOLUTE RETICS # 0.051 10^6/uL (0.028-0.122); HEMATOCRIT 28.2 % (36.0-47.0); HEMOGLOBIN 9.4 g/dL (12.0-15.5); LYMPHOCYTES % (AUTO) 6.8 % (13-45); MEAN CORPUSCULAR HEMOGLOBIN 29.5 pg (27.0-33.4); MEAN CORPUSCULAR HGB CONC 33.2 g/dL (32.0-36.0); MEAN CORPUSCULAR VOLUME 89 fl (80-97); MONOCYTES % (AUTO) 3.1 % (3-13); PLATELET COUNT 488 10^3/uL (150-450); RED BLOOD COUNT 3.17 10^6/uL (3.72-5.28); RED CELL DISTRIBUTION WIDTH 13.7 % (11.5-14.0); SEGMENTED NEUTROPHILS % (AUTO) 90.1 % (42-78); TOTAL CELLS COUNTED % (AUTO) 100 %; WHITE BLOOD COUNT 11.5 10^3/uL (4.0-10.5)
[2020-01-19 07:02] LABS: ALBUMIN 3.2 g/dL (3.5-5.0); ALKALINE PHOSPHATASE 160 U/L (38-126); ANION GAP 9 (5-19); ASPARTATE AMINO TRANSFERASE 29 U/L (14-36); BILIRUBIN,DIRECT 0.3 mg/dL (0.0-0.4); BILIRUBIN,TOTAL 0.5 mg/dL (0.2-1.3); BLOOD UREA NITROGEN 24 mg/dL (7-20); C-REACTIVE PROTEIN 58.7 mg/L (<10.0); CALCIUM 9.5 mg/dL (8.4-10.2); CARBON DIOXIDE 30 mmol/L (22-30); CHLORIDE 96 mmol/L (98-107); GLUCOSE 260 mg/dL (75-110); IRON(TIBC) 60.6 ug/dL (37-170); POTASSIUM 5.2 mmol/L (3.6-5.0); TOTAL PROTEIN 6.2 g/dL (6.3-8.2)
[2020-01-19 08:03] LABS: FOLATE 8.84 ng/mL (>2.76)
[2020-01-19] MEDS: INSULIN LISPRO 100 UNIT/ML 3 ML VIAL SUBCUT SCH ×6 (08:23→22:00)
[2020-01-19] MEDS: METOCLOPRAMIDE HCL 10 MG TABLET PO SCH ×4 (08:23→22:01)
[2020-01-19] MEDS: FLUOXETINE HCL 20 MG CAPSULE PO SCH (09:29)
[2020-01-19] MEDS: BUPROPION HCL 75 MG TABLET PO SCH ×2 (09:29→22:01)
[2020-01-19] MEDS: LOSARTAN POTASSIUM 25 MG TABLET PO SCH (09:29)
[2020-01-19] MEDS: CHOLECALCIFEROL (D3) 1,000 UNIT (25 MCG) TABLET PO SCH (09:29)
[2020-01-19] MEDS: MULTIVITAMIN TABLET PO SCH (09:29)
[2020-01-19] MEDS: HYDROXYZINE PAMOATE 25 MG CAPSULE PO SCH ×2 (09:29→22:01)
[2020-01-19] MEDS: ZINC SULFATE 220 MG CAPSULE PO SCH (09:29)
[2020-01-19] MEDS: METHYLPREDNISOLONE INJ 40 MG/1 ML SDV IV SCH ×2 (09:30→22:01)
[2020-01-19] MEDS: CALCIUM CARBONATE 600 MG/VITAMIN D3 400 UNIT TABLET PO SCH (09:30)
[2020-01-19] MEDS: ASCORBIC ACID 500 MG TABLET PO SCH ×2 (09:35→17:54)
[2020-01-19] MEDS: ENOXAPARIN SODIUM INJ 60 MG/0.6 ML DISP.SYRIN SUBCUT SCH (09:35)
--- NOTE | 2020-01-19 11:12 | PDOC PROGRESS REPORT ---
Subjective Date:: 01/19/20 Subjective:: The patient is actually sitting up in bed eyes wide open. She is awake and aler t. Reason For Visit: ACUTE HYPOXEMIC RESPIRATORY FAILURE COVID Physical Exam Vital Signs: Temp Pulse Resp BP Pulse Ox 97.6 F 90 19 128/60 H 97 01/19/20 08:44 01/19/20 08:12 01/19/20 08:12 01/19/20 08:12 01/19/20 09:36 Intake & Output 01/18/20 01/19/20 01/20/20 06:59 06:59 06:59 Intake Total 1359 587 Output Total 600 Balance 759 587 Weight 61.7 kg 60.2 kg General appearance: PRESENT: no acute distress, cooperative, well-developed, well-nourished Head exam: PRESENT: atraumatic, normocephalic Ear exam: PRESENT: normal external ear exam. ABSENT: bleeding, drainage Mouth exam: PRESENT: moist, tongue midline Respiratory exam: PRESENT: rales - Bilaterally, symmetrical, unlabored. ABSENT: rhonchi, tachypnea, wheezes Cardiovascular exam: PRESENT: RRR, +S1, +S2. ABSENT: bradycardia, diastolic murmur, irregular rhythm, systolic murmur, tachycardia GI/Abdominal exam: PRESENT: normal bowel sounds, soft. ABSENT: distended, guarding, tenderness Rectal exam: PRESENT: deferred Gentrourinary exam: ABSENT: indwelling catheter Extremities exam: ABSENT: pedal edema Musculoskeletal exam: PRESENT: ambulatory, normal inspection. ABSENT: deformity, dislocation Neurological exam: PRESENT: alert, awake, oriented to person, oriented to place, oriented to time, oriented to situation, CN II-XII grossly intact. ABSENT: altered Psychiatric exam: PRESENT: flat affect. ABSENT: agitated, anxious Focused psych exam: ABSENT: delusional, paranoid, restlessness Skin exam: PRESENT: dry, normal color, warm. ABSENT: rash Results Laboratory Results: 01/19/20 06:00 01/19/20 06:00 01/19/20 01/19/20 01/19/20 06:00 06:00 06:00 WBC 11.5 H Cancelled RBC 3.17 L Cancelled Hgb 9.4 L Cancelled Hct 28.2 L Cancelled MCV 89 Cancelled MCH 29.5 Cancelled MCHC 33.2 Cancelled RDW 13.7 Cancelled Plt Count 488 H Cancelled Seg Neutrophils % 90.1 H Retic Count (auto) 1.60 Cancelled Absolute Retic Cancelled Sodium 135.4 L Potassium 5.2 H Chloride 96 L Carbon Dioxide 30 Anion Gap 9 BUN 24 H Creatinine 0.74 Est GFR ( Amer) > 60 Glucose 260 H Calcium 9.5 Magnesium 2.2 Iron 60.6 TIBC 191 L % Saturation 32 Ferritin 625.00 H Total Bilirubin 0.5 AST 29 Alkaline Phosphatase 160 H C-Reactive Protein 58.7 H Total Protein 6.2 L Albumin 3.2 L Vitamin B12 705.0 Folate 8.84 01/16/20 01/17/20 22:34 05:57 Troponin I < 0.012 < 0.012 NT-Pro-B Natriuret Pep 530 H Impressions: Chest X-Ray 01/16/20 21:40 IMPRESSION: Repositioning of the central line is recommended. Bilateral consolidations. Lung Scan-VQ NM 01/17/20 00:00 IMPRESSION: Multiple photopenic areas involving the left upper and lower lobes may represent pulmonary emboli. Assessment and Plan - Diagnosis (1) Pneumonia due to human coronavirus Is this a current diagnosis for this admission?: Yes (2) Acute respiratory failure with hypoxia Is this a current diagnosis for this admission?: Yes (3) Hyperglycemia due to type 1 diabetes mellitus Is this a current diagnosis for this admission?: Yes (4) Elevated d-dimer Is this a current diagnosis for this admission?: Yes (5) Depression with anxiety Is this a current diagnosis for this admission?: Yes (6) Anemia Qualifiers: Anemia type: other cause Other causes of anemia: other cause, not classified Qualified Code(s): D64.89 - Other specified anemias Is this a current diagnosis for this admission?: Yes (7) Pulmonary embolus Qualifiers: Pulmonary embolism type: multiple subsegmental (without acute cor pulmonale) Qualified Code(s): I26.94 - Multiple subsegmental pulmonary emboli without acute cor pulmonale Is this a current diagnosis for this admission?: Yes - Plan Summary Summary: 01/17/2020 The patient has received her convalescent plasma. I have also ordered ivermectin and she is on steroids. I had a long talk with the patient's daughter. The patient does not actually take the medications as listed and so we made adjustments. As an example she was listed as taking Prozac 80 mg daily and she has not been taking any. So I have restarted at 40 mg. She also takes gabapentin 100 mg at night and then if needed during the day. For her diabetes we are going to use Lantus and sliding scale Humalog. It seems to be extremely effective during her last admission. A VQ scan is actually pending due to the elevated D-dimer. The patient also had elevated markers typically seen with Covid infection. I have adjusted the medications for her anxiety/depression as well. Patient was admitted with hypoxemia secondary to bilateral viral pneumonia caused by coronavirus. She has elevated D-dimer, she is allergic to intravenous contrast dye. She is going to have a lung perfusion scan. 01/18/2020 Received first dose of ivermectin yesterday and will receive second dose tomorrow. Spoke with her daughter Adore. Certain medication changes were made including decreasing Vistaril to 25 mg twice daily, utilizing Prozac 40 mg daily when she was not taking any previously. After 40 appears to be too much to start at than I will decrease the dose to 20. We are not using ibuprofen at this time as there is risk with her diabetes and hypertension. Potassium is slightly higher but still within the normal range. Will monitor potassium levels. This could be related to her losartan. Sodium is low but corrects considering her hyperglycemia. Hemoglobin has decreased but anemia studies have been ordered. She remains on nasal cannula at this time. Currently holding on antibiotics as we are giving ivermectin. Because of the elevated glucose checks I have increased her Lantus and given her more aggressive sliding scale. The next step will be to utilize fixed dosing before meals. 01/19/2020 Second dose of ivermectin today. Patient appears to be stable. Appears to be consistently on 3 L nasal cannula. No increased need for oxygen. Diabetes-Lantus increased and premeal Humalog also increased. Continue to monitor fingersticks. Will decrease his steroids based on her respiratory status. The patient only had 600 mL urine output yesterday. Will administer 1 L of fluid tonight. Serum potassium was 5.2. Clinically insignificant elevation. Will recheck after fluids this evening. Anemia-hemoglobin stable. Anemia studies unremarkable. Ferritin is markedly elevated from the Covid virus. Pulmonary embolus-continue anticoagulation. Will initiate direct oral anticoagulant therapy tonight and discontinue Lovenox. - Time Time Spent with patient: 15-24 minutes Medications reviewed and adjusted accordingly: Yes Anticipated Discharge Disposition: Home with Home Health Anticipated Discharge Timeframe: Unknown
[2020-01-19] MEDS ORDERED: IVERMECTIN 3 MG TABLET PO ONE (12:30)
[2020-01-19] MEDS ORDERED: NORMAL SALINE 1000 ML 1,000 ML IV PRN (17:18)
[2020-01-19 17:21] LABS: APPEARANCE,URINE CLEAR; BILIRUBIN,URINE NEGATIVE (NEGATIVE); COLOR,URINE STRAW; GLUCOSE, URINE >=500 mg/dL (NEGATIVE); KETONES,URINE TRACE mg/dL (NEGATIVE); LEUKOCYTE ESTERASE,URINE TRACE (NEGATIVE); NITRITE,URINE NEGATIVE (NEGATIVE); PROTEIN,URINE NEGATIVE (NEGATIVE); URINE SPECIFIC GRAVITY 1.009; UROBILINOGEN,URINE NEGATIVE mg/dL (<2.0)
[2020-01-19] MEDS: APIXABAN 5 MG TABLET PO SCH (17:54)
[2020-01-19] MEDS: ANASTROZOLE 1 MG TABLET PO SCH (22:00)
[2020-01-19] MEDS ORDERED: INSULIN GLARGINE,HUM.REC.ANLOG 1,000 UNIT/10 ML VIAL SUBCUT SCH (22:00)
[2020-01-19] MEDS: GABAPENTIN 100 MG CAPSULE PO SCH (22:01)
[2020-01-19] MEDS: MONTELUKAST SODIUM 10 MG TABLET PO SCH (22:01)
[2020-01-19] MEDS: ASPIRIN 81 MG TABLET, ENT COATED PO SCH (22:02)
[2020-01-19] MEDS: ACETAMINOPHEN 325 MG TABLET PO PRN (23:28)
[2020-01-20 05:45] LABS: HEMATOCRIT 29.1 % (36.0-47.0); HEMOGLOBIN 9.7 g/dL (12.0-15.5); MEAN CORPUSCULAR HEMOGLOBIN 29.9 pg (27.0-33.4); MEAN CORPUSCULAR HGB CONC 33.4 g/dL (32.0-36.0); MEAN CORPUSCULAR VOLUME 89 fl (80-97); PLATELET COUNT 503 10^3/uL (150-450); RED BLOOD COUNT 3.25 10^6/uL (3.72-5.28); RED CELL DISTRIBUTION WIDTH 13.8 % (11.5-14.0); WHITE BLOOD COUNT 10.1 10^3/uL (4.0-10.5)
[2020-01-20 06:14] LABS: ANION GAP 5 (5-19); BLOOD UREA NITROGEN 24 mg/dL (7-20); CALCIUM 9.7 mg/dL (8.4-10.2); CARBON DIOXIDE 35 mmol/L (22-30); CHLORIDE 97 mmol/L (98-107); GLUCOSE 261 mg/dL (75-110); POTASSIUM 5.3 mmol/L (3.6-5.0)
[2020-01-20] MEDS: INSULIN LISPRO 100 UNIT/ML 3 ML VIAL SUBCUT SCH ×7 (07:49→22:10)
[2020-01-20] MEDS: METOCLOPRAMIDE HCL 10 MG TABLET PO SCH ×4 (07:59→22:12)
[2020-01-20] MEDS: ZINC SULFATE 220 MG CAPSULE PO SCH (09:45)
[2020-01-20] MEDS: CHOLECALCIFEROL (D3) 1,000 UNIT (25 MCG) TABLET PO SCH (09:45)
[2020-01-20] MEDS: FLUOXETINE HCL 20 MG CAPSULE PO SCH (09:45)
[2020-01-20] MEDS: HYDROXYZINE PAMOATE 25 MG CAPSULE PO SCH ×2 (09:45→22:12)
[2020-01-20] MEDS: APIXABAN 5 MG TABLET PO SCH ×2 (09:45→17:15)
[2020-01-20] MEDS: METHYLPREDNISOLONE INJ 40 MG/1 ML SDV IV SCH ×2 (09:45→22:09)
[2020-01-20] MEDS: BUPROPION HCL 75 MG TABLET PO SCH ×2 (09:45→22:12)
[2020-01-20] MEDS: LOSARTAN POTASSIUM 25 MG TABLET PO SCH (09:45)
[2020-01-20] MEDS: CALCIUM CARBONATE 600 MG/VITAMIN D3 400 UNIT TABLET PO SCH (09:45)
[2020-01-20] MEDS: ASCORBIC ACID 500 MG TABLET PO SCH ×2 (09:46→17:15)
[2020-01-20] MEDS: MULTIVITAMIN TABLET PO SCH (09:46)
--- NOTE | 2020-01-20 14:07 | PDOC PROGRESS REPORT ---
Subjective Date:: 01/20/20 Subjective:: Patient with flat affect today. She does not register any new complaints. Arlet pedersen appears comfortable on nasal cannula. Still with fluctuating glucose levels. Reason For Visit: ACUTE HYPOXEMIC RESPIRATORY FAILURE COVID Physical Exam Vital Signs: Temp Pulse Resp BP Pulse Ox 97.9 F 92 16 134/58 H 95 01/20/20 11:19 01/20/20 11:19 01/20/20 11:19 01/20/20 11:19 01/20/20 11:19 Intake & Output 01/19/20 01/20/20 01/21/20 06:59 06:59 06:59 Intake Total 587 702 Balance 587 702 Weight 60.2 kg 61.2 kg General appearance: PRESENT: no acute distress, cooperative, well-developed Head exam: PRESENT: atraumatic, normocephalic Ear exam: PRESENT: normal external ear exam. ABSENT: bleeding, drainage Respiratory exam: PRESENT: rales - Faint rales at bases, symmetrical, unlabored. ABSENT: rhonchi, tachypnea, wheezes Cardiovascular exam: PRESENT: RRR, +S1, +S2. ABSENT: bradycardia, diastolic murmur, irregular rhythm, systolic murmur, tachycardia GI/Abdominal exam: PRESENT: normal bowel sounds, soft. ABSENT: distended, tenderness Rectal exam: PRESENT: deferred Gentrourinary exam: ABSENT: indwelling catheter Extremities exam: ABSENT: pedal edema Musculoskeletal exam: PRESENT: ambulatory, normal inspection. ABSENT: deformity, dislocation Neurological exam: PRESENT: alert, awake, oriented to person, oriented to place, oriented to time, oriented to situation, CN II-XII grossly intact. ABSENT: altered Psychiatric exam: PRESENT: flat affect. ABSENT: agitated, anxious Focused psych exam: ABSENT: delusional, paranoid, restlessness Skin exam: PRESENT: dry, normal color, warm. ABSENT: rash Results Laboratory Results: 01/20/20 04:55 01/20/20 04:55 01/19/20 01/20/20 01/20/20 16:56 04:55 04:55 WBC 10.1 RBC 3.25 L Hgb 9.7 L Hct 29.1 L MCV 89 MCH 29.9 MCHC 33.4 RDW 13.8 Plt Count 503 H Sodium 136.5 L Potassium 5.3 H Chloride 97 L Carbon Dioxide 35 H Anion Gap 5 BUN 24 H Creatinine 0.76 Est GFR ( Amer) > 60 Glucose 261 H Calcium 9.7 Urine Color STRAW Urine Appearance CLEAR Urine pH 5.0 Ur Specific [place] 1.009 Urine Protein NEGATIVE Urine Glucose (UA) >=500 H Urine Ketones TRACE H Urine Blood NEGATIVE Urine Nitrite NEGATIVE Ur Leukocyte Esterase TRACE H Urine WBC (Auto) 5 Urine RBC (Auto) 0 01/16/20 01/17/20 22:34 05:57 Troponin I < 0.012 < 0.012 NT-Pro-B Natriuret Pep 530 H Impressions: Chest X-Ray 01/16/20 21:40 IMPRESSION: Repositioning of the central line is recommended. Bilateral consolidations. Lung Scan-VQ NM 01/17/20 00:00 IMPRESSION: Multiple photopenic areas involving the left upper and lower lobes may represent pulmonary emboli. Assessment and Plan - Diagnosis (1) Pneumonia due to human coronavirus Is this a current diagnosis for this admission?: Yes (2) Acute respiratory failure with hypoxia Is this a current diagnosis for this admission?: Yes (3) Hyperglycemia due to type 1 diabetes mellitus Is this a current diagnosis for this admission?: Yes (4) Elevated d-dimer Is this a current diagnosis for this admission?: Yes (5) Depression with anxiety Is this a current diagnosis for this admission?: Yes (6) Anemia Qualifiers: Anemia type: other cause Other causes of anemia: other cause, not classified Qualified Code(s): D64.89 - Other specified anemias Is this a current diagnosis for this admission?: Yes (7) Pulmonary embolus Qualifiers: Pulmonary embolism type: multiple subsegmental (without acute cor pulmonale) Qualified Code(s): I26.94 - Multiple subsegmental pulmonary emboli without acute cor pulmonale Is this a current diagnosis for this admission?: Yes - Plan Summary Summary: 01/17/2020 The patient has received her convalescent plasma. I have also ordered ivermectin and she is on steroids. I had a long talk with the patient's daughter. The patient does not actually take the medications as listed and so we made adjustments. As an example she was listed as taking Prozac 80 mg daily and she has not been taking any. So I have restarted at 40 mg. She also takes gabapentin 100 mg at night and then if needed during the day. For her diabetes we are going to use Lantus and sliding scale Humalog. It seems to be extremely effective during her last admission. A VQ scan is actually pending due to the elevated D-dimer. The patient also had elevated markers typically seen with Covid infection. I have adjusted the medications for her anxiety/depression as well. Patient was admitted with hypoxemia secondary to bilateral viral pneumonia caused by coronavirus. She has elevated D-dimer, she is allergic to intravenous contrast dye. She is going to have a lung perfusion scan. 01/18/2020 Received first dose of ivermectin yesterday and will receive second dose tomorrow. Spoke with her daughter Adore. Certain medication changes were made including decreasing Vistaril to 25 mg twice daily, utilizing Prozac 40 mg daily when she was not taking any previously. After 40 appears to be too much to start at than I will decrease the dose to 20. We are not using ibuprofen at this time as there is risk with her diabetes and hypertension. Potassium is slightly higher but still within the normal range. Will monitor potassium levels. This could be related to her losartan. Sodium is low but corrects considering her hyperglycemia. Hemoglobin has decreased but anemia studies have been ordered. She remains on nasal cannula at this time. Currently holding on antibiotics as we are giving ivermectin. Because of the elevated glucose checks I have increased her Lantus and given her more aggressive sliding scale. The next step will be to utilize fixed dosing before meals. 01/19/2020 Second dose of ivermectin today. Patient appears to be stable. Appears to be consistently on 3 L nasal cannula. No increased need for oxygen. Diabetes-Lantus increased and premeal Humalog also increased. Continue to monitor fingersticks. Will decrease his steroids based on her respiratory status. The patient only had 600 mL urine output yesterday. Will administer 1 L of fluid tonight. Serum potassium was 5.2. Clinically insignificant elevation. Will recheck after fluids this evening. Anemia-hemoglobin stable. Anemia studies unremarkable. Ferritin is markedly elevated from the Covid virus. Pulmonary embolus-continue anticoagulation. Will initiate direct oral anticoagulant therapy tonight and discontinue Lovenox. 01/20/2020 The patient is resting in bed. She seems somewhat flat today. Covid pneumonia-she received her second dose of ivermectin yesterday. She seems to be stable on 1 to 2 L of oxygen. Diabetes mellitus-because of the steroids her sugars have been high. I will split the Lantus dose. In addition she has premeal fixed doses on a sliding scale. We will adjust insulin based on Accu-Cheks. Hyponatremia-sodium is 136.5. Continue to monitor. Hyperkalemia-potassium is 5.3. It was 5.2 yesterday. Will check it again tomorrow. If it is any higher I will institute Kayexalate. I have reviewed her medication list. There is no medication on the list that would contribute to hyperkalemia. - Time Time Spent with patient: 15-24 minutes Medications reviewed and adjusted accordingly: Yes Anticipated Discharge Disposition: Home with Home Health Anticipated Discharge Timeframe: within 72 hours
[2020-01-20] MEDS: INSULIN GLARGINE,HUM.REC.ANLOG 1,000 UNIT/10 ML VIAL SUBCUT SCH (22:09)
[2020-01-20] MEDS: MONTELUKAST SODIUM 10 MG TABLET PO SCH (22:12)
[2020-01-20] MEDS: ACETAMINOPHEN 325 MG TABLET PO PRN (22:12)
[2020-01-20] MEDS: GABAPENTIN 100 MG CAPSULE PO SCH (22:12)
[2020-01-20] MEDS: ASPIRIN 81 MG TABLET, ENT COATED PO SCH (22:12)
[2020-01-20] MEDS: ANASTROZOLE 1 MG TABLET PO SCH (22:14)
[2020-01-21] MEDS: INSULIN LISPRO 100 UNIT/ML 3 ML VIAL SUBCUT SCH ×7 (08:08→22:15)
[2020-01-21] MEDS: METOCLOPRAMIDE HCL 10 MG TABLET PO SCH ×4 (08:08→22:16)
[2020-01-21] MEDS: FLUOXETINE HCL 20 MG CAPSULE PO SCH (09:45)
[2020-01-21] MEDS: BUPROPION HCL 75 MG TABLET PO SCH ×2 (09:46→22:16)
[2020-01-21] MEDS: CHOLECALCIFEROL (D3) 1,000 UNIT (25 MCG) TABLET PO SCH (09:48)
[2020-01-21] MEDS: ASCORBIC ACID 500 MG TABLET PO SCH ×2 (09:48→17:23)
[2020-01-21] MEDS: CALCIUM CARBONATE 600 MG/VITAMIN D3 400 UNIT TABLET PO SCH (09:48)
[2020-01-21] MEDS: APIXABAN 5 MG TABLET PO SCH ×2 (09:48→17:23)
[2020-01-21] MEDS: LOSARTAN POTASSIUM 25 MG TABLET PO SCH (09:48)
[2020-01-21] MEDS: ZINC SULFATE 220 MG CAPSULE PO SCH (09:48)
[2020-01-21] MEDS: MULTIVITAMIN TABLET PO SCH (09:48)
[2020-01-21] MEDS: HYDROXYZINE PAMOATE 25 MG CAPSULE PO SCH ×2 (09:48→22:17)
[2020-01-21] MEDS: INSULIN GLARGINE,HUM.REC.ANLOG 1,000 UNIT/10 ML VIAL SUBCUT SCH ×2 (09:49→22:17)
[2020-01-21] MEDS: METHYLPREDNISOLONE INJ 40 MG/1 ML SDV IV SCH ×2 (09:50→22:17)
[2020-01-21 13:01] LABS: ANION GAP 6 (5-19); BLOOD UREA NITROGEN 25 mg/dL (7-20); CALCIUM 9.8 mg/dL (8.4-10.2); CARBON DIOXIDE 36 mmol/L (22-30); CHLORIDE 93 mmol/L (98-107); GLUCOSE 249 mg/dL (75-110); POTASSIUM 4.7 mmol/L (3.6-5.0)
--- NOTE | 2020-01-21 15:54 | PDOC PROGRESS REPORT ---
Subjective Date:: 01/21/20 Subjective:: The patient is resting in bed. She appears comfortable. She does not report getting short of breath walking to the bedside commode across the room. Reason For Visit: ACUTE HYPOXEMIC RESPIRATORY FAILURE COVID Physical Exam Vital Signs: Temp Pulse Resp BP Pulse Ox 97.6 F 92 12 115/59 L 97 01/21/20 11:06 01/21/20 14:00 01/21/20 11:06 01/21/20 11:06 01/21/20 11:06 Intake & Output 01/20/20 01/21/20 01/22/20 06:59 06:59 06:59 Intake Total 702 1502 Output Total 500 Balance 702 1002 Weight 61.2 kg 66.3 kg General appearance: PRESENT: no acute distress, cooperative, well-developed Head exam: PRESENT: atraumatic, normocephalic Respiratory exam: PRESENT: clear to auscultation zohreh, symmetrical, unlabored. ABSENT: rales, rhonchi, tachypnea, wheezes Cardiovascular exam: PRESENT: RRR, +S1, +S2. ABSENT: bradycardia, diastolic murmur, irregular rhythm, systolic murmur, tachycardia GI/Abdominal exam: PRESENT: normal bowel sounds, soft. ABSENT: distended, guarding, tenderness Rectal exam: PRESENT: deferred Gentrourinary exam: ABSENT: indwelling catheter Extremities exam: ABSENT: pedal edema Musculoskeletal exam: PRESENT: ambulatory, normal inspection. ABSENT: deformity, dislocation Neurological exam: PRESENT: alert, awake, oriented to person, oriented to place, oriented to time, oriented to situation, CN II-XII grossly intact. ABSENT: altered Psychiatric exam: PRESENT: flat affect. ABSENT: agitated, anxious Focused psych exam: ABSENT: delusional, paranoid, restlessness Skin exam: PRESENT: dry, normal color, warm. ABSENT: rash Results Laboratory Results: 01/20/20 04:55 01/21/20 12:22 01/21/20 12:22 Sodium 134.5 L Potassium 4.7 Chloride 93 L Carbon Dioxide 36 H Anion Gap 6 BUN 25 H Creatinine 0.83 Est GFR ( Amer) > 60 Glucose 249 H Calcium 9.8 Magnesium 2.1 01/16/20 01/17/20 22:34 05:57 Troponin I < 0.012 < 0.012 NT-Pro-B Natriuret Pep 530 H Impressions: Chest X-Ray 01/16/20 21:40 IMPRESSION: Repositioning of the central line is recommended. Bilateral consolidations. Lung Scan-VQ NM 01/17/20 00:00 IMPRESSION: Multiple photopenic areas involving the left upper and lower lobes may represent pulmonary emboli. Assessment and Plan - Diagnosis (1) Pneumonia due to human coronavirus Is this a current diagnosis for this admission?: Yes (2) Acute respiratory failure with hypoxia Is this a current diagnosis for this admission?: Yes (3) Hyperglycemia due to type 1 diabetes mellitus Is this a current diagnosis for this admission?: Yes (4) Elevated d-dimer Is this a current diagnosis for this admission?: Yes (5) Depression with anxiety Is this a current diagnosis for this admission?: Yes (6) Anemia Qualifiers: Anemia type: other cause Other causes of anemia: other cause, not classified Qualified Code(s): D64.89 - Other specified anemias Is this a current diagnosis for this admission?: Yes (7) Pulmonary embolus Qualifiers: Pulmonary embolism type: multiple subsegmental (without acute cor pulmonale) Qualified Code(s): I26.94 - Multiple subsegmental pulmonary emboli without acute cor pulmonale Is this a current diagnosis for this admission?: Yes - Plan Summary Summary: 01/17/2020 The patient has received her convalescent plasma. I have also ordered ivermectin and she is on steroids. I had a long talk with the patient's daughter. The patient does not actually take the medications as listed and so we made adjustments. As an example she was listed as taking Prozac 80 mg daily and she has not been taking any. So I have restarted at 40 mg. She also takes gabapentin 100 mg at night and then if needed during the day. For her diabetes we are going to use Lantus and sliding scale Humalog. It seems to be extremely effective during her last admission. A VQ scan is actually pending due to the elevated D-dimer. The patient also had elevated markers typically seen with Covid infection. I have adjusted the medications for her anxiety/depression as well. Patient was admitted with hypoxemia secondary to bilateral viral pneumonia caused by coronavirus. She has elevated D-dimer, she is allergic to intravenous contrast dye. She is going to have a lung perfusion scan. 01/18/2020 Received first dose of ivermectin yesterday and will receive second dose tomorrow. Spoke with her daughter Adore. Certain medication changes were made including decreasing Vistaril to 25 mg twice daily, utilizing Prozac 40 mg daily when she was not taking any previously. After 40 appears to be too much to start at than I will decrease the dose to 20. We are not using ibuprofen at this time as there is risk with her diabetes and hypertension. Potassium is slightly higher but still within the normal range. Will monitor potassium levels. This could be related to her losartan. Sodium is low but corrects considering her hyperglycemia. Hemoglobin has decreased but anemia studies have been ordered. She remains on nasal cannula at this time. Currently holding on antibiotics as we are giving ivermectin. Because of the elevated glucose checks I have increased her Lantus and given her more aggressive sliding scale. The next step will be to utilize fixed dosing before meals. 01/19/2020 Second dose of ivermectin today. Patient appears to be stable. Appears to be consistently on 3 L nasal cannula. No increased need for oxygen. Diabetes-Lantus increased and premeal Humalog also increased. Continue to monitor fingersticks. Will decrease his steroids based on her respiratory status. The patient only had 600 mL urine output yesterday. Will administer 1 L of fluid tonight. Serum potassium was 5.2. Clinically insignificant elevation. Will recheck after fluids this evening. Anemia-hemoglobin stable. Anemia studies unremarkable. Ferritin is markedly elevated from the Covid virus. Pulmonary embolus-continue anticoagulation. Will initiate direct oral anticoagu lant therapy tonight and discontinue Lovenox. 01/20/2020 The patient is resting in bed. She seems somewhat flat today. Covid pneumonia-she received her second dose of ivermectin yesterday. She seems to be stable on 1 to 2 L of oxygen. Diabetes mellitus-because of the steroids her sugars have been high. I will split the Lantus dose. In addition she has premeal fixed doses on a sliding scale. We will adjust insulin based on Accu-Cheks. Hyponatremia-sodium is 136.5. Continue to monitor. Hyperkalemia-potassium is 5.3. It was 5.2 yesterday. Will check it again tomorrow. If it is any higher I will institute Kayexalate. I have reviewed her medication list. There is no medication on the list that would contribute to hyperkalemia. 01/21/2020 Covid pneumonia-the patient is on approximately 1/2 L/min. I have discontinued the oxygen and explained that if she remains on room air overnight she can discharge to home tomorrow. Csiotxzh-Pkns-Khiyb are still quite high. I split the Lantus dose. We will need to increase the mealtime fixed dose of Humalog. Hyperkalemia-repeat basic metabolic panel revealed the potassium down to 4.6. This was approximately 7 hours after the morning draw. I will recheck laboratory studies tomorrow as well. Hyponatremia-serum sodium is 134.5. Slightly lower than previous. Continue to monitor. - Time Time Spent with patient: 15-24 minutes Medications reviewed and adjusted accordingly: Yes Anticipated Discharge Disposition: Home with Home Health Anticipated Discharge Timeframe: within 48 hours
[2020-01-21] MEDS ORDERED: INSULIN GLARGINE,HUM.REC.ANLOG 1,000 UNIT/10 ML VIAL (PYX) SUBCUT ONE (22:12)
[2020-01-21] MEDS: GABAPENTIN 100 MG CAPSULE PO SCH (22:16)
[2020-01-21] MEDS: ASPIRIN 81 MG TABLET, ENT COATED PO SCH (22:16)
[2020-01-21] MEDS: ANASTROZOLE 1 MG TABLET PO SCH (22:16)
[2020-01-21] MEDS: MONTELUKAST SODIUM 10 MG TABLET PO SCH (22:17)
[2020-01-22 07:16] LABS: ALKALINE PHOSPHATASE 163 U/L (38-126); ANION GAP 7 (5-19); ASPARTATE AMINO TRANSFERASE 52 U/L (14-36); BILIRUBIN,DIRECT 0.3 mg/dL (0.0-0.4); BILIRUBIN,TOTAL 0.5 mg/dL (0.2-1.3); BLOOD UREA NITROGEN 26 mg/dL (7-20); CALCIUM 9.4 mg/dL (8.4-10.2); CARBON DIOXIDE 35 mmol/L (22-30); CHLORIDE 95 mmol/L (98-107); GLUCOSE 168 mg/dL (75-110); POTASSIUM 4.9 mmol/L (3.6-5.0)
[2020-01-22] MEDS: METOCLOPRAMIDE HCL 10 MG TABLET PO SCH ×2 (09:07→12:33)
[2020-01-22] MEDS: CHOLECALCIFEROL (D3) 1,000 UNIT (25 MCG) TABLET PO SCH (09:07)
[2020-01-22] MEDS: APIXABAN 5 MG TABLET PO SCH (09:07)
[2020-01-22] MEDS: CALCIUM CARBONATE 600 MG/VITAMIN D3 400 UNIT TABLET PO SCH (09:07)
[2020-01-22] MEDS: HYDROXYZINE PAMOATE 25 MG CAPSULE PO SCH (09:07)
[2020-01-22] MEDS: MULTIVITAMIN TABLET PO SCH (09:07)
[2020-01-22] MEDS: BUPROPION HCL 75 MG TABLET PO SCH (09:08)
[2020-01-22] MEDS: FLUOXETINE HCL 20 MG CAPSULE PO SCH (09:08)
[2020-01-22] MEDS: ASCORBIC ACID 500 MG TABLET PO SCH (09:08)
[2020-01-22] MEDS: INSULIN LISPRO 100 UNIT/ML 3 ML VIAL SUBCUT SCH ×4 (09:08→12:33)
[2020-01-22] MEDS: ZINC SULFATE 220 MG CAPSULE PO SCH (09:08)
[2020-01-22] MEDS: LOSARTAN POTASSIUM 25 MG TABLET PO SCH (09:09)
[2020-01-22] MEDS: METHYLPREDNISOLONE INJ 40 MG/1 ML SDV IV SCH (09:09)
--- NOTE | 2020-01-22 10:29 | PDOC DISCHARGE SUMMARY ---
Impression - Admit/DC Date/PCP Admission Date/Primary Care Provider: 01/17/20 05:24 DL LEDBETTER, FISH FRYER-C Discharge Date: 01/22/20 - Discharge Diagnosis (1) Pneumonia due to human coronavirus Is this a current diagnosis for this admission?: Yes (2) Acute respiratory failure with hypoxia Is this a current diagnosis for this admission?: Yes (3) Hyperglycemia due to type 1 diabetes mellitus Is this a current diagnosis for this admission?: Yes (4) Elevated d-dimer Is this a current diagnosis for this admission?: Yes (5) Depression with anxiety Is this a current diagnosis for this admission?: Yes (6) Anemia Is this a current diagnosis for this admission?: Yes (7) Pulmonary embolus Is this a current diagnosis for this admission?: Yes - Assessment Summary: 01/17/2020 The patient has received her convalescent plasma. I have also ordered ivermectin and she is on steroids. I had a long talk with the patient's daughter. The patient does not actually take the medications as listed and so we made adjustments. As an example she was listed as taking Prozac 80 mg daily and she has not been taking any. So I have restarted at 40 mg. She also takes gabapentin 100 mg at night and then if needed during the day. For her diabetes we are going to use Lantus and sliding scale Humalog. It seems to be extremely effective during her last admission. A VQ scan is actually pending due to the elevated D-dimer. The patient also had elevated markers typically seen with Covid infection. I have adjusted the medications for her anxiety/depression as well. Patient was admitted with hypoxemia secondary to bilateral viral pneumonia caused by coronavirus. She has elevated D-dimer, she is allergic to intravenous contrast dye. She is going to have a lung perfusion scan. 01/18/2020 Received first dose of ivermectin yesterday and will receive second dose tomorrow. Spoke with her daughter Adore. Certain medication changes were made including decreasing Vistaril to 25 mg twice daily, utilizing Prozac 40 mg daily when she was not taking any previously. After 40 appears to be too much to start at than I will decrease the dose to 20. We are not using ibuprofen at this time as there is risk with her diabetes and hypertension. Potassium is slightly higher but still within the normal range. Will monitor potassium levels. This could be related to her losartan. Sodium is low but corrects considering her hyperglycemia. Hemoglobin has decreased but anemia studies have been ordered. She remains on nasal cannula at this time. Currently holding on antibiotics as we are giving ivermectin. Because of the elevated glucose checks I have increased her Lantus and given her more aggressive sliding scale. The next step will be to utilize fixed dosing before meals. 01/19/2020 Second dose of ivermectin today. Patient appears to be stable. Appears to be consistently on 3 L nasal cannula. No increased need for oxygen. Diabetes-Lantus increased and premeal Humalog also increased. Continue to monitor fingersticks. Will decrease his steroids based on her respiratory status. The patient only had 600 mL urine output yesterday. Will administer 1 L of fluid tonight. Serum potassium was 5.2. Clinically insignificant elevation. Will recheck after fluids this evening. Anemia-hemoglobin stable. Anemia studies unremarkable. Ferritin is markedly elevated from the Covid virus. Pulmonary embolus-continue anticoagulation. Will initiate direct oral anticoagulant therapy tonight and discontinue Lovenox. 01/20/2020 The patient is resting in bed. She seems somewhat flat today. Covid pneumonia-she received her second dose of ivermectin yesterday. She seems to be stable on 1 to 2 L of oxygen. Diabetes mellitus-because of the steroids her sugars have been high. I will split the Lantus dose. In addition she has premeal fixed doses on a sliding scale. We will adjust insulin based on Accu-Cheks. Hyponatremia-sodium is 136.5. Continue to monitor. Hyperkalemia-potassium is 5.3. It was 5.2 yesterday. Will check it again tomorrow. If it is any higher I will institute Kayexalate. I have reviewed her medication list. There is no medication on the list that would contribute to hyperkalemia. 01/21/2020 Covid pneumonia-the patient is on approximately 1/2 L/min. I have discontinued the oxygen and explained that if she remains on room air overnight she can discharge to home tomorrow. Ldniqwux-Beuj-Ffuku are still quite high. I split the Lantus dose. We will need to increase the mealtime fixed dose of Humalog. Hyperkalemia-repeat basic metabolic panel revealed the potassium down to 4.6. This was approximately 7 hours after the morning draw. I will recheck laboratory studies tomorrow as well. Hyponatremia-serum sodium is 134.5. Slightly lower than previous. Continue to monitor. - Additional Information Discharge Diet: Cardiac, Diabetic Discharge Activity: Balance Activity w/Rest, Slowly Increase Activity Referrals: ANA OLEARY MD [NO LOCAL MD] - 02/14/20 2:20 am (2-3 weeks with Beverly haskins----[employer]) DL LEDBETTER FNP-C [Primary Care Provider] - 01/31/20 10:15 am Prescriptions: Apixaban [Eliquis 5 mg Tablet] 5 mg PO BID #60 tablet Insulin Lispro [Humalog Kwikpen U-100] 0 - 16 unit SQ ASDIR #5 insuln.pen Insulin Glargine,Hum.rec.anlog [Lantus Insulin 100 Unit/mL Insulin Pen] 22 unit SUBCUT Q12 #5 pen Pen Needle, Diabetic [Pen Needle] 1 each 6XD #180 dis.needle Prednisone 10 mg PO ASDIR #22 tablet Hydroxyzine Pamoate [Vistaril 25 mg Capsule] 25 mg PO Q12 #60 capsule Home Medications: Anastrozole [Arimidex 1 mg Tablet] 1 mg PO QHS 01/01/20 Bupropion HCl [Bupropion HCl Sr] 150 mg PO Q12 01/01/20 Gabapentin [Neurontin 100 mg Capsule] 100 mg PO QHS 01/01/20 Losartan Potassium [Cozaar 25 mg Tablet] 25 mg PO DAILY 01/01/20 Montelukast Sodium [Singulair 10 mg Tablet] 10 mg PO QHS 01/01/20 Multivitamin [Tab-A-Cintia (Multiple Vitamin) Tablet] 1 tab PO DAILY 01/01/20 Calcium Carbonate/Vitamin D3 [Calcium 600-Vit D3 400 Tablet] 1 each PO DAILY 01/07/20 Gabapentin [Neurontin 100 mg Capsule] 100 mg PO DAILYP PRN 01/07/20 L. Acidophilus/L.bulgaricus [Lactobacillus Tablet] 1 each PO DAILY 01/07/20 Alprazolam [Xanax 0.25 mg Tablet] 0.25 mg PO Q6HP PRN tablet 01/22/20 Anastrozole [Arimidex 1 mg Tablet] 1 mg PO QHS tablet 01/22/20 Apixaban [Eliquis 5 mg Tablet] 5 mg PO BID #60 tablet 01/22/20 Ascorbic Acid [Vitamin C 500 mg Tablet] 500 mg PO BID tablet 01/22/20 Aspirin [Ecotrin 81 mg EC Tablet] 81 mg PO QHS tabec 01/22/20 Bupropion HCl [Wellbutrin 75 mg Tablet] 150 mg PO Q12 tablet 01/22/20 Calcium Carbonate/Vitamin D3 [Caltrate 600-Vit D3 400 Tablet] 1 tab PO DAILY tablet 01/22/20 Cholecalciferol (Vitamin D3) [Vitamin D3 1000 Unit Tablet] 2,000 unit PO DAILY tablet 01/22/20 Fluoxetine HCl [Prozac 20 mg Capsule] 40 mg PO DAILY capsule 01/22/20 Gabapentin [Neurontin 100 mg Capsule] 100 mg PO QHS capsule 01/22/20 Hydroxyzine Pamoate [Vistaril 25 mg Capsule] 25 mg PO Q12 #60 capsule 01/22/20 Insulin Glargine,Hum.rec.anlog [Lantus Insulin 100 Unit/mL Insulin Pen] 22 unit SUBCUT Q12 #5 pen 01/22/20 Insulin Lispro [Humalog Kwikpen U-100] 0 - 16 unit SQ ASDIR #5 insuln.pen 01/22/20 Losartan Potassium [Cozaar 25 mg Tablet] 25 mg PO DAILY tablet 01/22/20 Metoclopramide HCl [Reglan 10 mg Tablet] 10 mg PO ACHS tablet 01/22/20 Montelukast Sodium [Singulair 10 mg Tablet] 10 mg PO QHS tablet 01/22/20 Multivitamin [Tab-A-Cintia (Multiple Vitamin) Tablet] 1 tab PO DAILY tablet 01/22/20 Pen Needle, Diabetic [Pen Needle] 1 each 6XD #180 dis.needle 01/22/20 Prednisone 10 mg PO ASDIR #22 tablet 01/22/20 Zinc Sulfate [Zinc-220 Capsule] 220 mg PO DAILY capsule 01/22/20 History of Present Illiness History of Present Illness: CHARLIE PERKINS is a 59 year old female Patient was recently hospitalized between December 31 2 January 09 with diabetic ketoacidosis, poorly controlled diabetes. She had abnormal MRI of the brain and the possibility of meningitis/encephalitis was raised. Eventually these conditions were ruled out. She was on insulin pump, the DKA was related to insulin pump malfunction or poor management. The patient was discharged on subcutaneous insulin. Apparently she did not fill the prescription for the subcutaneous insulin, she started using her insulin pump again. For the last 2 days she was developing dry cough, increasing shortness of breath and feeling very weak. She came to the emergency department , she was diagnosed with coronavirus, bilateral viral pneumonia. She was placed on oxygen and she was given dexamethasone. When I arrived to see her she was on 2 L/min nasal oxygen and she did not appear to be in major distress. Hospital Course Hospital Course: Full details above The patient remained on room air without desaturating overnight. Stable for discharge. Physical Exam Vital Signs: Temp Pulse Resp BP Pulse Ox 97.8 F 88 16 93/68 L 90 L 01/22/20 07:59 01/22/20 07:30 01/22/20 04:01 01/22/20 07:30 01/22/20 07:30 Intake & Output 01/21/20 01/22/20 01/23/20 06:59 06:59 06:59 Intake Total 1502 1162 Output Total 500 Balance 1002 1162 Weight 66.3 kg 66.1 kg General appearance: PRESENT: no acute distress Respiratory exam: PRESENT: rales - Fine rales at bases, symmetrical, unlabored. ABSENT: rhonchi, tachypnea, wheezes Cardiovascular exam: PRESENT: RRR, +S1, +S2 GI/Abdominal exam: PRESENT: normal bowel sounds, soft. ABSENT: tenderness Rectal exam: PRESENT: deferred Gentrourinary exam: ABSENT: indwelling catheter Neurological exam: PRESENT: alert, awake, oriented to person, oriented to place, oriented to time, oriented to situation. ABSENT: altered Psychiatric exam: PRESENT: flat affect. ABSENT: agitated, anxious Focused psych exam: ABSENT: delusional, paranoid, restlessness Results Laboratory Results: WBC 10.1 10^3/uL (4.0-10.5) 01/20/20 04:55 RBC 3.25 10^6/uL (3.72-5.28) L 01/20/20 04:55 Hgb 9.7 g/dL (12.0-15.5) L 01/20/20 04:55 Hct 29.1 % (36.0-47.0) L 01/20/20 04:55 MCV 89 fl (80-97) 01/20/20 04:55 MCH 29.9 pg (27.0-33.4) 01/20/20 04:55 MCHC 33.4 g/dL (32.0-36.0) 01/20/20 04:55 RDW 13.8 % (11.5-14.0) 01/20/20 04:55 Plt Count 503 10^3/uL (150-450) H 01/20/20 04:55 Lymph % (Auto) 6.8 % (13-45) L 01/19/20 06:00 Day % (Auto) 3.1 % (3-13) 01/19/20 06:00 Eos % (Auto) 0.0 % (0-6) 01/19/20 06:00 Baso % (Auto) 0.0 % (0-2) 01/19/20 06:00 Reticulocyte # 0.051 10^6/uL (0.028-0.122) 01/19/20 06:00 Reticulocyte # Cancelled 01/19/20 06:00 Absolute Neuts (auto) 10.3 10^3/uL (1.7-8.2) H 01/19/20 06:00 Absolute Lymphs (auto) 0.8 10^3/uL (0.5-4.7) 01/19/20 06:00 Absolute Monos (auto) 0.4 10^3/uL (0.1-1.4) 01/19/20 06:00 Absolute Eos (auto) 0.0 10^3/uL (0.0-0.6) 01/19/20 06:00 Absolute Basos (auto) 0.0 10^3/uL (0.0-0.2) 01/19/20 06:00 Seg Neutrophils % 90.1 % (42-78) H 01/19/20 06:00 Reticulocyte # (manual) Cancelled 01/19/20 06:00 Platelet Estimate Cancelled 01/19/20 06:00 ESR 116 mm/hr (0-30) H 01/17/20 05:07 Retic Count Cancelled 01/19/20 06:00 Retic Count (manual) Cancelled 01/19/20 06:00 Retic Count (auto) 1.60 % (0.66-2.85) 01/19/20 06:00 Retic Count (auto) Cancelled 01/19/20 06:00 Absolute Retic Cancelled 01/19/20 06:00 PT 14.3 SEC (11.4-15.4) 01/17/20 05:57 INR 1.09 01/17/20 05:57 APTT 33.8 SEC (23.5-35.8) 01/17/20 05:57 D-Dimer 1.44 ug/mL (0.00-0.50) H 01/20/20 04:55 Sodium 136.8 mmol/L (137-145) L 01/22/20 05:12 Potassium 4.9 mmol/L (3.6-5.0) 01/22/20 05:12 Chloride 95 mmol/L (98-107) L 01/22/20 05:12 Carbon Dioxide 35 mmol/L (22-30) H 01/22/20 05:12 Anion Gap 7 (5-19) 01/22/20 05:12 BUN 26 mg/dL (7-20) H 01/22/20 05:12 Creatinine 0.80 mg/dL (0.52-1.25) 01/22/20 05:12 Est GFR ( Amer) > 60 (>60) 01/22/20 05:12 Est GFR (MDRD) Non-Af > 60 (>60) 01/22/20 05:12 Glucose 168 mg/dL (75-110) H 01/22/20 05:12 POC Glucose 176 mg/dL (70-110) H 01/22/20 07:37 Hemoglobin A1c % 8.5 % (4.7-6.0) H 01/22/20 05:12 Calcium 9.4 mg/dL (8.4-10.2) 01/22/20 05:12 Magnesium 2.2 mg/dL (1.6-2.3) 01/22/20 05:12 Iron 60.6 ug/dL (37-170) 01/19/20 06:00 TIBC 191 ug/dL (250-450) L 01/19/20 06:00 % Saturation 32 % 01/19/20 06:00 Ferritin 625.00 ng/mL (11.1-264.0) H 01/19/20 06:00 Total Bilirubin 0.5 mg/dL (0.2-1.3) 01/22/20 05:12 Direct Bilirubin 0.3 mg/dL (0.0-0.4) 01/22/20 05:12 Neonat Total Bilirubin Not Reportable 01/22/20 05:12 Neonat Direct Bilirubin Not Reportable 01/22/20 05:12 Neonat Indirect Bili Not Reportable 01/22/20 05:12 AST 52 U/L (14-36) H 01/22/20 05:12 ALT 21 U/L (<35) 01/22/20 05:12 Alkaline Phosphatase 163 U/L (38-126) H 01/22/20 05:12 Lactate Dehydrogenase 335 U/L (120-246) H 01/17/20 05:57 Troponin I < 0.012 ng/mL 01/17/20 05:57 C-Reactive Protein 58.7 mg/L (<10.0) H 01/19/20 06:00 NT-Pro-B Natriuret Pep 530 pg/mL (<125) H 01/16/20 22:34 Total Protein 6.0 g/dL (6.3-8.2) L 01/22/20 05:12 Albumin 3.0 g/dL (3.5-5.0) L 01/22/20 05:12 Vitamin B12 705.0 pg/mL (239-931) 01/19/20 06:00 Folate 8.84 ng/mL (>2.76) 01/19/20 06:00 Urine Color STRAW 01/19/20 16:56 Urine Appearance CLEAR 01/19/20 16:56 Urine pH 5.0 (5.0-9.0) 01/19/20 16:56 Ur Specific Tornado 1.009 01/19/20 16:56 Urine Protein NEGATIVE mg/dL (NEGATIVE) 01/19/20 16:56 Urine Glucose (UA) >=500 mg/dL (NEGATIVE) H 01/19/20 16:56 Urine Ketones TRACE mg/dL (NEGATIVE) H 01/19/20 16:56 Urine Blood NEGATIVE (NEGATIVE) 01/19/20 16:56 Urine Nitrite NEGATIVE (NEGATIVE) 01/19/20 16:56 Urine Bilirubin NEGATIVE (NEGATIVE) 01/19/20 16:56 Urine Urobilinogen NEGATIVE mg/dL (<2.0) 01/19/20 16:56 Ur Leukocyte Esterase TRACE (NEGATIVE) H 01/19/20 16:56 Urine WBC (Auto) 5 /HPF 01/19/20 16:56 Urine RBC (Auto) 0 /HPF 01/19/20 16:56 Urine Bacteria (Auto) TRACE /HPF 01/16/20 22:34 Squamous Epi Cells Auto <1 /HPF 01/19/20 16:56 Urine Mucus (Auto) RARE /LPF 01/17/20 23:55 Urine Yeast (Budding) PRESENT /HPF 01/17/20 23:55 Urine Ascorbic Acid 20 (NEGATIVE) H 01/19/20 16:56 Influenza A (RT-PCR) NEGATIVE (NEGATIVE) 01/17/20 03:15 Influenza B (RT-PCR) NEGATIVE (NEGATIVE) 01/17/20 03:15 RSV (RT-PCR) NEGATIVE (NEGATIVE) 01/17/20 03:15 SARS-CoV-2 Rap RNA(RT-PCR) POSITIVE (NEGATIVE) H 01/17/20 03:15 Slides for Path Review Cancelled 01/19/20 06:00 Blood Type A POSITIVE 01/17/20 06:44 01/16/20 01/17/20 22:34 05:57 Troponin I < 0.012 < 0.012 NT-Pro-B Natriuret Pep 530 H Impressions: Chest X-Ray 01/16/20 21:40 IMPRESSION: Repositioning of the central line is recommended. Bilateral consolidations. Lung Scan-VQ NM 01/17/20 00:00 IMPRESSION: Multiple photopenic areas involving the left upper and lower lobes may represent pulmonary emboli. Plan Health Concerns: Suggest continuing Lantus and Humalog until she sees her operator vacuum. Plan of Treatment: Prednisone taper for Covid pneumonia with supplements to continue. Continue current diabetic regimen until she sees her operator vacuum. Goals: Establish program for better control of diabetes with fewer complications Time Spent: Greater than 30 Minutes Stroke Is this a Stroke Patient?: No Acute Heart Failure Is this a Heart Failure Patient?: No
[2020-01-22] MEDS: INSULIN GLARGINE,HUM.REC.ANLOG 1,000 UNIT/10 ML VIAL SUBCUT SCH (13:33)
[2020-01-22 13:55] VITALS: BP 118/50
== END 2020-01-22 14:31 | disposition home or self-care (01) | DRG 177 ==
LOC: ER 21:07 → EH 01-17 05:24 → OBSVTOIN 01-17 05:24 → INTOOBSV 01-17 05:24 → 3W 01-17 14:16
PROVIDERS: ADMIT Internal Medicine; ATTEND Hospitalist
PROC: XW13325 Transfusion of Convalescent Plasma (Nonautologous) into Peripheral Vein, Percutaneous Approach, New Technology Group 5 (ICD-10-PCS; principal; 2020-01-17)
DX: U07.1 COVID-19 (principal); J12.89 Other viral pneumonia; J96.01 Acute respiratory failure with hypoxia; I26.94 Multiple subsegmental thrombotic pulmonary emboli without acute cor pulmonale; E10.65 Type 1 diabetes mellitus with hyperglycemia; F32.9 Major depressive disorder, single episode, unspecified; F41.9 Anxiety disorder, unspecified; D64.9 Anemia, unspecified; I10 Essential (primary) hypertension; Z96.41 Presence of insulin pump (external) (internal); Z79.4 Long term (current) use of insulin; Z79.01 Long term (current) use of anticoagulants; Z79.82 Long term (current) use of aspirin; Z79.899 Other long term (current) drug therapy; Z87.891 Personal history of nicotine dependence; Z88.1 Allergy status to other antibiotic agents; Z88.8 Allergy status to other drugs, medicaments and biological substances; Z91.041 Radiographic dye allergy status
CPT/HCPCS: 36415; 36430; 71045; 78580; 80048; 80053; 81001; 82607; 82728; 82746; 82962; 83036; 83540; 83550; 83615; 83735; 83880; 84484; 85025; 85027; 85045; 85379; 85610; 85652; 85730; 86140; 86900; 86901; 87040; 93005; 93010; 96360; 96361; 99285; 0241U; A9540; C9803; J1100; J1642; J1650; J1815; J2920; J3490; J7030; Q9969

== ENCOUNTER 2020-02-06 13:41 | Inpatient (IN) | payer MEDICARE, OTHER ==
[2020-02-06] MEDS ORDERED: HYDROCODONE/ACETAMINOPHEN 5-325 MG TABLET PO ONE (15:41)
--- NOTE | 2020-02-06 15:46 | ER Document Report ---
ED Medical Screen (RME) - General Chief Complaint: Back Pain Stated Complaint: BACK AND HIP PAIN Time Seen by Provider: 02/06/20 15:35 Primary Care Provider: ELIF ADAMES FNP [Primary Care Provider] - Follow up as needed Mode of Arrival: Wheelchair Information source: Patient Notes: HPI; 59-year-old female presents to the emergency room complaining of worsening back pain for the past 5 days. Patient states she had a fall back in July saw her primary care physician in September they scheduled her for PT which she states never happened secondary to Covid since that time she has been admitted to the emergency room for pneumonia, DKA, and a PE. States she was discharged home on steroids which she finished about 4 5 days ago. States the pain is gotten worse since stopping the steroids. She denies any trauma or injury. States she can barely ambulate secondary to the pain. She denies any loss control of her bowels or bladder. No saddle anesthesia. States she has been taking Tylenol without relief. PE: Alert and oriented x3. Lungs: Clear to auscultation without rales, rhonchi, wheezes. Heart: Tachycardic without murmurs, rubs, gallops. There is tenderness on palpation from L4-S1. Patient is unable to ambulate secondary to pain. There is no step-offs. Positive straight leg raising bilaterally at 30 degrees. I have greeted and performed a rapid initial assessment of this patient. A comprehensive ED assessment and evaluation of the patient, analysis of test results and completion of the medical decision making process will be conducted by additional ED providers. I have specifically instructed the patient or family members with the patient to immediately return to any nursing staff should anything change in the patient's condition or with their chief complaint. TRAVEL OUTSIDE OF THE [place] IN LAST 30 DAYS: No - Related Data Allergies/Adverse Reactions: cephalexin monohydrate [From Keflex] Allergy (Verified 01/17/20 09:32) iodine [Iodine] Allergy (Verified 01/17/20 09:32) rash and swelling to contact location Past Medical History - Past Medical History Cardiac Medical History: Reports: Hx Hypertension Endocrine Medical History: Reports: Hx Diabetes Mellitus Type 1 Renal/ Medical History: Denies: Hx Peritoneal Dialysis Psychiatric Medical History: Reports: Hx Depression Past Surgical History: Reports: Hx Abdominal Surgery, Hx Appendectomy, Hx Breast Surgery - left masectomy, Hx Section, Hx Cholecystectomy - Immunizations Immunizations up to date: Yes Hx Diphtheria, Pertussis, Tetanus Vaccination: Yes Physical Exam - Vital signs Vitals: Temp Pulse Resp BP Pulse Ox 98.4 F 103 H 16 117/58 L 94 02/06/20 14:21 02/06/20 14:21 02/06/20 14:21 02/06/20 14:21 02/06/20 14:21 Course - Vital Signs Vital signs: Temp Pulse Resp BP Pulse Ox 98.4 F 103 H 16 117/58 L 94 02/06/20 14:21 02/06/20 14:21 02/06/20 14:21 02/06/20 14:21 02/06/20 14:21 Doctor's Discharge - Discharge Referrals: ELIF ADAMES FNP [Primary Care Provider] - Follow up as needed
[2020-02-06 16:39] LABS: AMORPHOUS SEDIMENT,URINE TRACE /HPF; APPEARANCE,URINE SLIGHTLY-CLOUDY; BILIRUBIN,URINE NEGATIVE (NEGATIVE); COLOR,URINE YELLOW; GLUCOSE, URINE NEGATIVE (NEGATIVE); KETONES,URINE NEGATIVE (NEGATIVE); LEUKOCYTE ESTERASE,URINE NEGATIVE (NEGATIVE); NITRITE,URINE NEGATIVE (NEGATIVE); PROTEIN,URINE NEGATIVE (NEGATIVE); URINE SPECIFIC GRAVITY 1.013; UROBILINOGEN,URINE NEGATIVE mg/dL (<2.0)
--- NOTE | 2020-02-06 16:45 | RADIOLOGY REPORT (SQ) ---
EXAM DESCRIPTION: L SPINE WHOLE IMAGES COMPLETED DATE/TIME: 02/06/2020 1:20 pm REASON FOR STUDY: back pain COMPARISON: 03/06/2019 NUMBER OF VIEWS: Five views including obliques. TECHNIQUE: AP, lateral, oblique, and sacral radiographic images acquired of the lumbar spine. LIMITATIONS: Osseous demineralization. Overlying bowel gas partially obscures underlying structures . FINDINGS: MINERALIZATION: Decreased. SEGMENTATION: Normal. No transitional anatomy. ALIGNMENT: Normal. VERTEBRAE: Maintained height. No fracture or worrisome bone lesion. DISCS: Preserved height. No significant osteophytes or end plate irregularity. POSTERIOR ELEMENTS: There may be some mild facet arthropathy more pronounced at the lower lumbar leve ls. No acute abnormality. HARDWARE: None in the spine. PARASPINAL SOFT TISSUES: Vascular calcifications. PELVIS: Intact as visualized. No fractures or worrisome bone lesions. SI joints intact. OTHER: No other significant finding. IMPRESSION: Mild osseous demineralization without acute radiographic abnormality. Mild degenerative changes, predominantly demonstrated by facet arthropathy. TECHNICAL DOCUMENTATION: JOB ID: [id number] [employer]- All Rights Reserved Reading location - IP/workstation name: [email or web address]
[2020-02-06 19:11] LABS: ABSOLUTE BASOPHILS # (AUTO) 0.1 10^3/uL (0.0-0.2); ABSOLUTE EOSINOPHILS # (AUTO) 0.2 10^3/uL (0.0-0.6); ABSOLUTE LYMPHOCYTES (AUTO) 1.6 10^3/uL (0.5-4.7); ABSOLUTE MONOCYTES (AUTO) 0.7 10^3/uL (0.1-1.4); ABSOLUTE NEUT (AUTO) 4.3 10^3/uL (1.7-8.2); BASOPHILS % (AUTO) 0.8 % (0-2); EOSINOPHILS % (AUTO) 2.9 % (0-6); HEMATOCRIT 28.1 % (36.0-47.0); HEMOGLOBIN 9.6 g/dL (12.0-15.5); LYMPHOCYTES % (AUTO) 23.7 % (13-45); MEAN CORPUSCULAR HEMOGLOBIN 31.3 pg (27.0-33.4); MEAN CORPUSCULAR HGB CONC 34.1 g/dL (32.0-36.0); MEAN CORPUSCULAR VOLUME 92 fl (80-97); MONOCYTES % (AUTO) 10.6 % (3-13); PLATELET COUNT 270 10^3/uL (150-450); RED BLOOD COUNT 3.06 10^6/uL (3.72-5.28); RED CELL DISTRIBUTION WIDTH 17.2 % (11.5-14.0); TOTAL CELLS COUNTED % (AUTO) 100 %; WHITE BLOOD COUNT 6.9 10^3/uL (4.0-10.5)
[2020-02-06 19:25] LABS: INTERNATIONAL RATION (INR) 1.24; PROTHROMBIN TIME 15.8 SEC (11.4-15.4)
[2020-02-06 19:34] LABS: ALBUMIN 3.7 g/dL (3.5-5.0); ALKALINE PHOSPHATASE 195 U/L (38-126); ANION GAP 5 (5-19); ASPARTATE AMINO TRANSFERASE 89 U/L (14-36); BILIRUBIN,DIRECT 0.1 mg/dL (0.0-0.4); BILIRUBIN,TOTAL 0.3 mg/dL (0.2-1.3); BLOOD UREA NITROGEN 21 mg/dL (7-20); CALCIUM 11.6 mg/dL (8.4-10.2); CARBON DIOXIDE 33 mmol/L (22-30); CHLORIDE 101 mmol/L (98-107); GLUCOSE 91 mg/dL (75-110); POTASSIUM 4.2 mmol/L (3.6-5.0); TOTAL PROTEIN 6.8 g/dL (6.3-8.2)
--- NOTE | 2020-02-06 19:49 | ER Document Report ---
ED General - General Chief Complaint: Back Pain Stated Complaint: BACK AND HIP PAIN Time Seen by Provider: 02/06/20 15:35 Mode of Arrival: Wheelchair TRAVEL OUTSIDE OF THE [place] IN LAST 30 DAYS: No - HPI Notes: 59-year-old female presents with back pain. Patient states she has had back pain for the last 5 days, has been progressively worsening, located diffusely across her lower back and radiates into her hips. Described as severe. States that she can no longer walk due to the pain. Patient states that she is able to stand on her right leg, however cannot lift it off of the bed, states that she has to lift her leg with her arm to lower to the ground. Patient states that she is unable to bear weight on her left leg, however is able to lift it and move it. Pain is also made worse by sitting. She denies any falls or known trauma. Pain started after she discontinued steroids. She was recently admitted for Covid and was discharged home with a steroid taper. Patient also notes that she has had a few episodes where she has been on herself, she further clarifies that she feels the urge to urinate, she attempts to get up to walk but is unable to walk due to the pain, therefore urinates on herself before she is able to make it to the bathroom. She denies numbness in her legs. No loss of bowel control. States that she is able to lift herself into a sitting position with her upper body, though does note some bilateral shoulder pain with this. - Related Data Allergies/Adverse Reactions: cephalexin monohydrate [From Keflex] Allergy (Verified 01/17/20 09:32) iodine [Iodine] Allergy (Verified 01/17/20 09:32) rash and swelling to contact location Past Medical History - General Information source: Patient - Social History Smoking Status: Never Smoker Family History: Reviewed & Not Pertinent - Past Medical History Cardiac Medical History: Reports: Hx Hypertension Endocrine Medical History: Reports: Hx Diabetes Mellitus Type 1 Renal/ Medical History: Denies: Hx Peritoneal Dialysis Psychiatric Medical History: Reports: Hx Depression Past Surgical History: Reports: Hx Abdominal Surgery, Hx Appendectomy, Hx Breast Surgery - left masectomy, Hx Section, Hx Cholecystectomy - Immunizations Immunizations up to date: Yes Hx Diphtheria, Pertussis, Tetanus Vaccination: Yes Review of Systems - Review of Systems Constitutional: denies: Chills, Fever EENT: No symptoms reported Cardiovascular: denies: Chest pain Respiratory: denies: Short of breath Gastrointestinal: denies: Abdominal pain Genitourinary: No symptoms reported Female Genitourinary: No symptoms reported Musculoskeletal: See HPI Skin: No symptoms reported Hematologic/Lymphatic: No symptoms reported Neurological/Psychological: Weakness. denies: Numbness Physical Exam - Vital signs Vitals: Temp Pulse Resp BP Pulse Ox 98.4 F 103 H 16 117/58 L 94 02/06/20 14:21 02/06/20 14:21 02/06/20 14:21 02/06/20 14:21 02/06/20 14:21 - General General appearance: Appears well, Alert - HEENT Head: Normocephalic, Atraumatic Extraocular movements intact: Yes Pupils: PERRL - Respiratory Breath sounds: Normal - Cardiovascular Rhythm: Regular Heart sounds: Normal auscultation Pulses: Normal: Dorsalis pedis Normal capillary refill: Yes - Abdominal Tenderness: Nontender - Back Back: Tender - Generally across all lower back - Extremities General lower extremity: No: Edema - Neurological Cognition: Normal Orientation: AAOx4 Notes: Client Care Coordinator strength symmetric between upper extremities, she is able to sit up in bed using upper body. Right lower extremity: Has intact motor, she is able to move it back and forth in bed, however is unable to lift off the bed. She has preserved plantar flexion and dorsiflexion. Sensation is intact. 2+ patellar reflex. Left lower extremity: Has intact motor, she is able to move the back and forth in bed, able to lift off the bed, preserved plantar and dorsiflexion. Sensation intact. 2+ patellar reflex. No saddle anesthesia Positive straight leg raise bilaterally, worse on right - Psychological Associated symptoms: Normal affect - Skin Skin Temperature: Warm Course - Re-evaluation Re-evalutation: 59-year-old female with 5 days of progressively worsening atraumatic lower back pain. Patient has had 2 recent hospitalizations. Was admitted at the end of December for DKA thought to be secondary to insulin pump failure. Patient states she is now on insulin pens and her sugars have been well controlled. She also was recently admitted at the beginning of January for Covid, she received steroids and ivermectin, sent home on a steroid taper. Back pain has seem to have started after she discontinued steroids. On exam she is alert, well- appearing, afebrile and hemodynamically stable. She has generalized tenderness to her lower back. In terms of neuro exam, there is somewhat of an inconsistent exam as she does have motor and sensory to the right leg, however is unable to lift it off the bed, question if this is related to pain versus a true deficit. Will obtain MRI L-spine to evaluate for acute pathology. We will also obtain CT head to evaluate for a subacute CVA which may also be attributing. Does describe somewhat a limb girdle type distribution of pain as well, will check inflammatory markers and CK to see if there is any evidence of polymyalgia rheumatica given she has had multiple recent acute illnesses. Will treat pain with morphine. 02/06/20 23:13 MRI L-spine has resulted. There appears to be extensive osseous metastatic disease and an acute compression fracture of L4 with 15% loss of height. No retropulsion. No cord compression. 02/06/20 23:17 I went in to update patient and her on MRI results. Patient states that about 5 years ago she had left-sided breast cancer. She states she underwent mastectomy and had chemotherapy/radiation. She states that she was cleared from oncology, she periodically has blood work, and every 6 months receives a Prolia shot. 02/06/20 23:24 Discussed MRI findings with Dr. Arciniega. She believes that patient should be able to be admitted here, she will need radiation to the back to help with pain control and should be able to start systemic therapy 02/06/20 23:[address] [place] of hospital service. Patient updated on plan to admit here. She does note that Dr. Arciniega was involved in her cancer care previously - Vital Signs Vital signs: Temp Pulse Resp BP Pulse Ox 99.1 F 103 H 16 152/62 H 93 02/07/20 02:27 02/07/20 02:27 02/07/20 02:27 02/07/20 02:27 02/07/20 02:27 - Laboratory Results Result Diagrams: 02/06/20 18:51 02/06/20 18:51 Laboratory Results Interpreted: 02/06/20 02/06/20 02/06/20 16:13 18:51 18:51 RBC 3.06 L Hgb 9.6 L Hct 28.1 L RDW 17.2 H ESR PT 15.8 H Carbon Dioxide BUN Est GFR (MDRD) Non-Af Calcium AST ALT Alkaline Phosphatase C-Reactive Protein Urine Ascorbic Acid 20 H 02/06/20 02/06/20 02/06/20 18:51 19:10 19:10 RBC Hgb Hct RDW ESR 111 H PT Carbon Dioxide 33 H BUN 21 H Est GFR (MDRD) Non-Af 49 L Calcium 11.6 H AST 89 H ALT 62 H Alkaline Phosphatase 195 H C-Reactive Protein 42.9 H Urine Ascorbic Acid Critical Laboratory Results Reviewed: No Critical Results - Radiology Results Critical Radiology Results Reviewed: Yes Attending or Supervising Physician who Reviewed Radiology: FRANCOIS HI Discharge - Discharge Clinical Impression: Metastatic cancer to bone Lower back pain Qualifiers: Chronicity: acute Back pain laterality: bilateral Sciatica presence: without sciatica Qualified Code(s): M54.5 - Low back pain Disposition: ADMITTED INPATIENT Admitting Provider[facility] Medical [facility]
[2020-02-06] MEDS ORDERED: MORPHINE SULFATE 10 MG/ML INJ IV ONE (20:07)
[2020-02-06 20:39] LABS: C-REACTIVE PROTEIN 42.9 mg/L (<10.0)
--- NOTE | 2020-02-06 22:21 | RADIOLOGY REPORT (SQ) ---
EXAM DESCRIPTION: MRI LUMBAR SPINE COMBO CLINICAL HISTORY: 59 years Female; low back pain, inability to ambulate, R leg weak history of breast cancer. TECHNIQUE: MRI lumbar spine with and without contrast using intravenous contrast. COMPARISON: None. FINDINGS: For the purpose of this dictation five nonrib-bearing lumbar vertebral bodies are assumed. There is extensive low signal seen infiltrating throughout the lumbar spine vertebral bodies as well as the visualized portion of the sacrum. Findings are consistent with extensive osseous metastatic disease. Very subtle loss of the superior endplate of L4 is noted with subtle cortical disruption suggesting an acute compression fracture at L4. There is approximately 15% loss of height of the vertebral body. No retropulsion. The conus demonstrates normal morphology and terminates at L1. Following the administration of gadolinium there is no abnormal enhancement of the spinal cord or the nerves. There is patchy bone marrow enhancement seen throughout at the metastatic lesions. No epidural mass is identified. Visualized portion of the retroperitoneum demonstrates no definitive mass or lymphadenopathy. Paraspinal soft tissues are unremarkable. L1-2: Minimal posterior broad-based disc bulge. No foraminal narrowing or spinal stenosis. L2-3: Minimal symmetric disc bulge. No foraminal narrowing or spinal stenosis L3-4: Mild facet arthropathy. Minimal posterior broad-based disc bulge. This results in minimal narrowing of the central spinal canal and the neural foramen. L4-5: Posterior broad-based disc bulge is noted within annular tear and there is bilateral facet arthropathy. This results in moderate narrowing of the central spinal canal and moderate neural foraminal narrowing bilaterally. L5-S1: Minimal facet arthropathy IMPRESSION: 1. Diffuse infiltrating bone marrow process consistent with diffuse metastatic disease. 2. Subtle compression fracture involving the superior endplate of L4 with 15% loss of height of the vertebral body. This most likely is acute or recent. 3. Minimal multilevel degenerative disc disease. This is most pronounced at L4-5 where there is moderate spinal stenosis and foraminal narrowing.
--- NOTE | 2020-02-06 22:40 | RADIOLOGY REPORT (SQ) ---
EXAM DESCRIPTION: CT HEAD WITHOUT CLINICAL HISTORY: 59 years Female R leg weak x5d, eval subacute cva TECHNIQUE: Noncontrast CT head. All CT scans at this facility use dose modulation, iterative reconstruction, and/or weight based dosing when appropriate to reduce radiation dose to as low as reasonably achievable. COMPARISON: January 03, [address] head January 01, 2020. FINDINGS: There is a subtle area of hyperdense appearing presumed dural thickening in region of previously seen dural abnormality on MRI brain January 03, 2020. This finding is adjacent to the right frontal lobe and measures approximately 2 mm in thickness. The configuration and appearance is grossly stable given differences in technique when compared with prior CT head January 01, 2020. Visualized portions of paranasal sinuses and mastoids are clear. Visualized portions of the calvarium are within normal limits. IMPRESSION: 1. Stable appearance of presumed dural thickening adjacent to the right frontal lobe. Consider follow-up with brain MRI with contrast as clinically indicated.
[2020-02-07] MEDS ORDERED: ACETAMINOPHEN 325 MG TABLET PO PRN (01:04)
[2020-02-07] MEDS ORDERED: ONDANSETRON HCL INJ/PF 4 MG/2 ML SDV IV PRN (01:04)
[2020-02-07] MEDS ORDERED: GLUCAGON,HUMAN RECOMB 1 MG INJ IM PRN (01:16)
[2020-02-07] MEDS ORDERED: DEXTROSE 50%-WATER 25 GM/50 ML DISP.SYRIN IV PRN ×2 (01:16)
[2020-02-07] MEDS ORDERED: DEXTROSE 40% GEL 15 GM TUBE PO PRN ×2 (01:16)
[2020-02-07] MEDS ORDERED: MORPHINE SULFATE 10 MG/ML INJ IV PRN (01:31)
[2020-02-07] MEDS ORDERED: DEXAMETHASONE SOD PHOS INJ 10 MG/1 ML VIAL IV ONE (02:00)
[2020-02-07] MEDS ORDERED: MORPHINE SULFATE 10 MG/ML INJ IV ONE (02:30)
--- NOTE | 2020-02-07 03:13 | PDOC H&P ---
History of Present Illness Admission Date/PCP: 02/07/20 00:50 CARMELINA HALL Patient complains of: low back pain History of Present Illness: CHARLIE PERKINS is a 59 year old female with a history of breast cancer in 2016 status post left mastectomy and chemotherapy, diabetes mellitus, pulmonary embolus and recent treatment for COVID-19 now presents to the ED reporting 5 days duration of low back pain. She states that the pain started after she completed the tapering dose of steroid given for COVID-19 treatment and she describes it as sharp, 9/10 intensity, nonradiating. She states that she has severe limitation of movement due to the pain and she has not been able to move her right lower extremity. She reports that she is able to stand on it and walk but when lying down on her back she has difficulty of lifting it up mainly because of pain. Occasionally she has been having difficulty of controlling her bladder that she had LP done about a month ago but denies any loss of control of bowel movement. She denies any chest pain, shortness of breath, cough, fever, chills, nausea, vomiting, diarrhea, abdominal pain or dysuria. Past Medical History Cardiac Medical History: Reports: Hypertension Endocrine Medical History: Reports: Diabetes Mellitus Type 1 Psychiatric Medical History: Reports: Depression Past Surgical History Past Surgical History: Reports: Appendectomy, Section, Cholecystectomy Social History Information Source: Patient Lives with: Family Smoking Status: Never Smoker Frequency of Alcohol Use: None Hx Recreational Drug Use: No Drugs: None Hx Prescription Drug Abuse: No - Advance Directive Resuscitation Status: Full Code Family History Family History: Reviewed & Not Pertinent Parental Family History Reviewed: Yes Children Family History Reviewed: Yes Sibling(s) Family History Reviewed.: Yes Medication/Allergy Home Medications: Anastrozole [Arimidex 1 mg Tablet] 1 mg PO QHS 01/01/20 Bupropion HCl [Bupropion HCl Sr] 150 mg PO Q12 01/01/20 Gabapentin [Neurontin 100 mg Capsule] 100 mg PO QHS 01/01/20 Losartan Potassium [Cozaar 25 mg Tablet] 25 mg PO DAILY 01/01/20 Montelukast Sodium [Singulair 10 mg Tablet] 10 mg PO QHS 01/01/20 Multivitamin [Tab-A-Cintia (Multiple Vitamin) Tablet] 1 tab PO DAILY 01/01/20 Calcium Carbonate/Vitamin D3 [Calcium 600-Vit D3 400 Tablet] 1 each PO DAILY 01/07/20 Gabapentin [Neurontin 100 mg Capsule] 100 mg PO DAILYP PRN 01/07/20 L. Acidophilus/L.bulgaricus [Lactobacillus Tablet] 1 each PO DAILY 01/07/20 Alprazolam [Xanax 0.25 mg Tablet] 0.25 mg PO Q6HP PRN tablet 01/22/20 Anastrozole [Arimidex 1 mg Tablet] 1 mg PO QHS tablet 01/22/20 Apixaban [Eliquis 5 mg Tablet] 5 mg PO BID #60 tablet 01/22/20 Ascorbic Acid [Vitamin C 500 mg Tablet] 500 mg PO BID tablet 01/22/20 Aspirin [Ecotrin 81 mg EC Tablet] 81 mg PO QHS tabec 01/22/20 Bupropion HCl [Wellbutrin 75 mg Tablet] 150 mg PO Q12 tablet 01/22/20 Calcium Carbonate/Vitamin D3 [Caltrate 600-Vit D3 400 Tablet] 1 tab PO DAILY tablet 01/22/20 Cholecalciferol (Vitamin D3) [Vitamin D3 1000 Unit Tablet] 2,000 unit PO DAILY tablet 01/22/20 Fluoxetine HCl [Prozac 20 mg Capsule] 40 mg PO DAILY capsule 01/22/20 Gabapentin [Neurontin 100 mg Capsule] 100 mg PO QHS capsule 01/22/20 Hydroxyzine Pamoate [Vistaril 25 mg Capsule] 25 mg PO Q12 #60 capsule 01/22/20 Insulin Glargine,Hum.rec.anlog [Lantus Insulin 100 Unit/mL Insulin Pen] 22 unit SUBCUT Q12 #5 pen 01/22/20 Insulin Lispro [Humalog Kwikpen U-100] 0 - 16 unit SQ ASDIR #5 insuln.pen 01/22/20 Losartan Potassium [Cozaar 25 mg Tablet] 25 mg PO DAILY tablet 01/22/20 Metoclopramide HCl [Reglan 10 mg Tablet] 10 mg PO ACHS tablet 01/22/20 Montelukast Sodium [Singulair 10 mg Tablet] 10 mg PO QHS tablet 01/22/20 Multivitamin [Tab-A-Cintia (Multiple Vitamin) Tablet] 1 tab PO DAILY tablet 01/22/20 Pen Needle, Diabetic [Pen Needle] 1 each MC 6XD #180 dis.needle 01/22/20 Prednisone 10 mg PO ASDIR #22 tablet 01/22/20 Zinc Sulfate [Zinc-220 Capsule] 220 mg PO DAILY capsule 01/22/20 Allergies/Adverse Reactions: cephalexin monohydrate [From Keflex] Allergy (Verified 01/17/20 09:32) iodine [Iodine] Allergy (Verified 01/17/20 09:32) rash and swelling to contact location shrimp Allergy (Uncoded 02/07/20 06:33) Review of Systems Constitutional: ABSENT: chills, fever(s), headache(s), weight gain, weight loss Eyes: ABSENT: visual disturbances Ears: ABSENT: hearing changes Nose, Mouth, and Throat: ABSENT: headache(s), mouth pain, sore throat, vertigo Cardiovascular: ABSENT: chest pain, dyspnea on exertion, edema, orthropnea, palpitations Respiratory: ABSENT: cough, hemoptysis Gastrointestinal: ABSENT: abdominal pain, constipation, diarrhea, hematemesis, hematochezia, nausea, vomiting Genitourinary: ABSENT: dysuria, hematuria Musculoskeletal: PRESENT: as per HPI Integumentary: ABSENT: rash, wounds Neurological: ABSENT: abnormal gait, abnormal speech, confusion, dizziness, syncope Psychiatric: ABSENT: anxiety, depression, homidical ideation, suicidal ideation Endocrine: ABSENT: cold intolerance, heat intolerance, polydipsia, polyuria Hematologic/Lymphatic: ABSENT: easy bleeding, easy bruising Physical Exam Vital Signs: Temp Pulse Resp BP Pulse Ox 98.5 F 103 H 16 117/58 L 95 02/06/20 19:15 02/06/20 14:21 02/06/20 14:21 02/06/20 14:21 02/06/20 19:15 Additional comments: GENERAL APPEARANCE: Alert and oriented x3, in no acute distress HEENT: Normocephalic and atraumatic. No scleral icterus. Moist oral mucosa NECK: Supple. No lymphadenopathy or tenderness. No JVD CHEST: Symmetric. Nontender to palpation. LUNGS: Clear with good air entry bilaterally. No wheezing or crackles HEART: Regular rate and rhythm with normal S1 and S2. No murmurs, gallops, or rubs. ABDOMEN:soft, active bowel sounds, no direct or rebound tenderness. No organomegaly detected. No CVA tenderness EXTREMITIES: No cyanosis, clubbing, or edema. MUSCULOSKELETAL: No deformity, atrophy or swelling noted PSYCHIATRIC: Recent and remote memory is intact. Appropriate mood and affect. SKIN: Warm, dry, and well perfused. No lesions or rashes are noted. NEUROLOGIC: Patient seems to have reduced power on the right lower extremity of 3/5 but it appears to be due to pain Reflexes are +2 symmetrically at the knee, and ankle Has normal muscle tone, no atrophy or fasciculations. No saddle anesthesia Has no other focal motor or sensory neurologic deficit detected. Results Laboratory Results: 02/06/20 18:51 02/06/20 18:51 02/06/20 02/06/20 02/06/20 16:13 18:51 18:51 WBC 6.9 RBC 3.06 L Hgb 9.6 L Hct 28.1 L MCV 92 MCH 31.3 MCHC 34.1 RDW 17.2 H Plt Count 270 Seg Neutrophils % 62.0 Sodium 139.1 Potassium 4.2 Chloride 101 Carbon Dioxide 33 H Anion Gap 5 BUN 21 H Creatinine 1.13 Est GFR ( Amer) > 60 Glucose 91 Calcium 11.6 H Total Bilirubin 0.3 AST 89 H Alkaline Phosphatase 195 H C-Reactive Protein Total Protein 6.8 Albumin 3.7 Urine Color YELLOW Urine Appearance SLIGHTLY-CLOUDY Urine pH 7.0 Ur Specific [place] 1.013 Urine Protein NEGATIVE Urine Glucose (UA) NEGATIVE Urine Ketones NEGATIVE Urine Blood NEGATIVE Urine Nitrite NEGATIVE Ur Leukocyte Esterase NEGATIVE Urine WBC (Auto) 2 Urine RBC (Auto) 1 02/06/20 19:10 WBC RBC Hgb Hct MCV MCH MCHC RDW Plt Count Seg Neutrophils % Sodium Potassium Chloride Carbon Dioxide Anion Gap BUN Creatinine Est GFR ( Amer) Glucose Calcium Total Bilirubin AST Alkaline Phosphatase C-Reactive Protein 42.9 H Total Protein Albumin Urine Color Urine Appearance Urine pH Ur Specific [place] Urine Protein Urine Glucose (UA) Urine Ketones Urine Blood Urine Nitrite Ur Leukocyte Esterase Urine WBC (Auto) Urine RBC (Auto) 02/06/20 19:10 Creatine Kinase 94 Impressions: Lumbar Spine X-Ray 02/06/20 15:40 IMPRESSION: Mild osseous demineralization without acute radiographic ab normality. Mild degenerative changes, predominantly demonstrated by facet arthropathy. Lumbar Spine MRI 02/06/20 20:04 IMPRESSION: 1. Diffuse infiltrating bone marrow process consistent with diffuse metastatic disease. 2. Subtle compression fracture involving the superior endplate of L4 with 15% loss of height of the vertebral body. This most likely is acute or recent. 3. Minimal multilevel degenerative disc disease. This is most pronounced at L4-5 where there is moderate spinal stenosis and foraminal narrowing. Head CT 02/06/20 20:05 IMPRESSION: 1. Stable appearance of presumed dural thickening adjacent to the right frontal lobe. Consider follow-up with brain MRI with contrast as clinically indicated. Assessment and Plan - Diagnosis (1) Metastatic cancer to bone Is this a current diagnosis for this admission?: Yes Plan: Patient presents with 5 days duration of low back pain Has a history of breast cancer status postmastectomy and chemo radiation in 2016 Right lower extremity weakness appears to be due to pain MRI of lumbar spine showed diffuse infiltrating bone marrow process consistent with metastasis endocervical acute to subacute compression fracture of L4 vertebra with 15% loss of height but there was no sign of spinal cord compression Administered dexamethasone 10 mg IV once Morphine 4 mg every 4 hourly as needed for pain control patient with likely require palliative radiation therapy Heme-onc consult placed (2) Lower back pain Qualifiers: Chronicity: acute Back pain laterality: bilateral Sciatica presence: without sciatica Qualified Code(s): M54.5 - Low back pain Is this a current diagnosis for this admission?: Yes Plan: Presents with 5 days duration of low back pain Likely due to metastatic bone lesion MRI of lumbar spine shows diffuse infiltrative bone marrow lesions concerning for metastases and compression fracture of L4 vertebra Control pain with morphine 4 mg IV every 4 hourly as needed May benefit from kyphoplasty (3) History of breast cancer Is this a current diagnosis for this admission?: Yes Plan: Status post left mastectomy with axillary node dissection and chemoradiotherapy Currently patient is on anastrozole likely to be primary sites for metastatic bone lesions Follow-up with heme-onc consult (4) Vertebral compression fracture Qualifiers: Lumbar vertebra fracture level: L4 Is this a current diagnosis for this admission?: Yes Plan: MRI of the lumbar spine shows compression fracture of L4 vertebra with 15% loss of height Likely pathologic due to metastatic bone lesions Patient may require kyphoplasty Continue pain management with morphine Follow-up with heme-onc recommendations (5) Depression with anxiety Is this a current diagnosis for this admission?: Yes Plan: Stable, continue fluoxetine (6) Diabetes mellitus Is this a current diagnosis for this admission?: Yes Plan: Patient was recently managed for DKA We will continue her on Lantus 20 mg daily Sliding scale insulin, Accu-Chek and hypoglycemia protocol (7) Pulmonary embolus Qualifiers: Pulmonary embolism type: multiple subsegmental (without acute cor pulmonale) Qualified Code(s): I26.94 - Multiple subsegmental pulmonary emboli without acute cor pulmonale Is this a current diagnosis for this admission?: Yes Plan: Continue apixaban - Time Time Spent with patient: 35 or more minutes Total Critical Time (Minutes): 45 Medications reviewed and adjusted accordingly: Yes Anticipated Discharge Disposition: Home, Self Care Anticipated Discharge Timeframe: within 48 hours - Inpatient Certification Based on my medical assessment, after consideration of the patient's comorbidities, presenting symptoms, or acuity I expect that the services needed warrant INPATIENT care.: Yes I certify that my determination is in accordance with my understanding of Medicare's requirements for reasonable and necessary INPATIENT services [42 CFR 412.3e].: Yes Medical Necessity: Need Close Monitoring Due to Risk of Patient Decompensation, Need for Pain Control Post Hospital Care: D/C or Transfer Summary
[2020-02-07] MEDS: INSULIN REG, HUMAN 100 UNIT/ML 3 ML VIAL (PYX) SUBCUT SCH ×3 (09:15→18:03)
[2020-02-07] MEDS: FAMOTIDINE 20 MG TABLET PO SCH ×2 (09:16→23:05)
[2020-02-07] MEDS: LOSARTAN POTASSIUM 25 MG TABLET PO SCH (09:16)
[2020-02-07] MEDS: APIXABAN 5 MG TABLET PO SCH ×2 (09:16→18:03)
[2020-02-07] MEDS: GABAPENTIN 100 MG CAPSULE PO SCH ×2 (09:16→23:05)
[2020-02-07] MEDS ORDERED: FLUOXETINE HCL 20 MG CAPSULE PO SCH (10:00)
[2020-02-07] MEDS ORDERED: INSULIN GLARGINE,HUM.REC.ANLOG 1,000 UNIT/10 ML VIAL SUBCUT SCH (10:00)
[2020-02-07] MEDS ORDERED: INSULIN GLARGINE,HUM.REC.ANLOG 1,000 UNIT/10 ML VIAL (PYX) SUBCUT ONE (11:30)
--- NOTE | 2020-02-07 12:26 | Progress Note ---
Provider Note Provider Note: I was not able to see this patient as she is under COVID-19 restrictions, having tested positive. However, I was able to discuss her care with her PCP and review her chart at length. Patient is a 59 year old female who was diagnosed with Stage III left breast cancer (ER+ HER2-) in Feb 2015. She underwent mastectomy, chemotherapy with AC ->T, radiation, and was started on Arimidex. She has had no evidence of disease since Dec 2015. Earlier this month, she was admitted to the hospital and diagnosed with COVID-19. At that time, she was also diagnosed with PE (by VQ scan) and started on Xarelto. Her respiratory function improved but she returned to the hospital for new back pain. She was found on MRI spine to have what appears to be widespread graciela mets. She has remained on arimidex. At this point, I would recommend further staging with CT C/A/P, Bone scan, and MRI brain. I will arrange. I will be happy to review these and arrange further treatment as outpatient, once her quarantine period for COVID is over. At this point, radiation to the back is not possible due to the COVID, so I would continue steroids and narcotics for pain control, as needed. I will continue to follow with you. Please call with any questions or concerns.
[2020-02-07] MEDS ORDERED: INSULIN REG, HUMAN 100 UNIT/ML 3 ML VIAL (PYX) SUBCUT ONE (13:30)
[2020-02-07] MEDS ORDERED: ALPRAZOLAM 0.25 MG TABLET PO PRN (14:42)
--- NOTE | 2020-02-07 14:51 | Progress Note ---
Provider Note Provider Note: The patient is a 59-year-old female with a past medical history of hypertension, DM type I, depression, breast cancer status post left mastectomy and chemotherapy in 2016, pulmonary embolus, anticoagulated on Eliquis, and recent treatment for COVID-19 who was admitted early this morning by the professional fee coder for Low back pain and left lower extremity weakness secondary to vertebral compression fractures in the setting of metastatic cancer to the bone. Overnight events, vital signs, laboratory results imaging H&P and orders reviewed. Agree with plan of care as established by the previous provider. In addition, the patient's home medications have been reconciled and resumed where appropriate. The patient has hyperglycemia; insulin regimen is adjusted. Discussed patient's case with Dr. Arciniega. She plans for bates-scanning the patient with nuclear medicine bone scan, MRI head combo, CT chest without, and CT abdo men/pelvis without to evaluate for further metastatic disease. Continue analgesics as needed for pain control; attention to adjusting to medication regiment that is compatible with discharge to home. Continued isolation/contact precautions regarding recent COVID-19 illness. Unfortunately, not a candidate for radiation treatment at this time r/t recent COVID illness. Discussed plan of care with nursing.
--- NOTE | 2020-02-07 15:51 | RADIOLOGY REPORT (SQ) ---
EXAM DESCRIPTION: CT CHEST WITHOUT; CT ABD/PELVIS NO ORAL OR IV IMAGES COMPLETED DATE/TIME: 02/07/2020 3:22 pm REASON FOR STUDY: restaging breast cancer COMPARISON: 01/01/2016, conventional radiograph dated 01/15/2018 TECHNIQUE: CT scan of the chest performed without intravenous contrast using helical scanning techni que. Images reviewed with lung, soft tissue and bone windows. Reconstructed coronal and sagittal MPR images reviewed. All images stored on PACS. All CT scanners at this facility use dose modulation, iterative reconstruction, and/or weight based d osing when appropriate to reduce radiation dose to as low as reasonably achievable (ALARA). [facility]: Dose Right [facility]: CareDose [facility]: Dose Right [facility]: Teradose 4D [facility]: [facility] RADIATION DOSE: CT Rad equipment meets quality standard of care and radiation dose reduction techniq ues were employed. CTDIvol: 5.4 - 7.4 mGy. DLP: 569 mGy-cm. mGy. LIMITATIONS: No technical limitations. FINDINGS: AXILLAE: No pathologic axillary adenopathy. CHEST WALL: Prior left mastectomy. LUNGS: Too numerous to count bilateral pulmonary nodules. These range in size from 1 to 2 mm up to 2 .6 cm. There is involvement in both the right and left upper and lower lobes. There is a small righ t pleural effusion with right lower lobe atelectasis. PLEURA: No effusions. No calcifications. THYROID: No masses or significant asymmetry. HILAR AND MEDIASTINAL STRUCTURES: No definite adenopathy on this non contrasted study. AORTA AND GREAT VESSELS: No aneurysm. HEART: No pericardial effusion. HARDWARE AND LIFELINES: Right-sided PICC line is in place. BONES: Widespread bony metastatic disease. OTHER: No other significant finding. IMPRESSION: Too numerous to count bilateral pulmonary nodules consistent with metastatic disease. W idespread bony metastatic disease. COMPARISON: None. TECHNIQUE: CT scan of the abdomen and pelvis performed without intravenous contrast and withoutoral contrast using helical scanning technique with dynamic intravenous contrast injection. Images review ed with lung, soft tissue and bone windows. Reconstructed coronal and sagittal MPR images reviewed. All images stored on PACS. All CT scanners at this facility use dose modulation, iterative reconstruction, and/or weight based d osing when appropriate to reduce radiation dose to as low as reasonably achievable (ALARA). [facility]: Dose Right [facility]: [facility]: Dose Right [facility]: Teradose 4D [facility]: [facility] RADIATION DOSE: CT Rad equipment meets quality standard of care and radiation dose reduction techniq ues were employed. CTDIvol: 5.4 - 7.4 mGy. DLP: 569 mGy-cm. mGy. LIMITATIONS: None. FINDINGS: LIVER: Several hypoattenuating lesions in the right lobe of liver consistent with metastat ic disease. The largest is anterior location measuring. SPLEEN: Normal size. No focal lesions. PANCREAS: No masses. No significant calcifications. No adjacent inflammation or peripancreatic flui d collections. Pancreatic duct not dilated. GALLBLADDER: Surgically absent. ADRENAL GLANDS: No significant masses or asymmetry. RIGHT KIDNEY AND URETER: No solid masses. Assessment limited by lack of IV contrast. No significant calcifications. No hydronephrosis or hydroureter. LEFT KIDNEY AND URETER: No solid masses. Assessment limited by lack of IV contrast. No significant calcifications. No hydronephrosis or hydroureter. AORTA AND VESSELS: No aneurysm. RETROPERITONEUM: No retroperitoneal adenopathy, hemorrhage or masses. APPENDIX: Surgically absent. LARGE AND SMALL BOWEL: No dilatation. No masses. No wall thickening. ABDOMINAL WALL: No hernia or masses. PERITONEAL CAVITY: No free air. No free fluid. No peritoneal implants or masses. PELVIS: Distended bladder. No pelvic adenopathy. BONES: Widespread bony metastatic disease. OTHER: No other significant finding. IMPRESSION: 1. Metastatic disease in the liver. 2. Widespread bony metastatic disease. TECHNICAL DOCUMENTATION: JOB ID: [id number] Quality ID # [id number]: Final reports with documentation of one or more dose reduction techniques (e.g., Au tomated exposure control, adjustment of the mA and/or kV according to patient size, use of iterative reconstruction technique) 2010 [employer]- All Rights Reserved Reading location - IP/workstation name: [email or web address]
[2020-02-07] MEDS ORDERED: INSULN SUBCUT SCH (16:00)
[2020-02-07] MEDS ORDERED: INSULIN ASPART 100 UNIT/ML SUBCUT SCH (16:00)
[2020-02-07] MEDS: INSULIN LISPRO 100 UNIT/ML 3 ML VIAL SUBCUT SCH ×2 (18:03→23:05)
[2020-02-07] MEDS: ASCORBIC ACID 500 MG TABLET PO SCH (18:03)
[2020-02-07] MEDS: OXYCODONE HCL IR 5 MG TABLET PO PRN ×2 (18:10→23:24)
[2020-02-07] MEDS ORDERED: MONTELUKAST SODIUM 10 MG TABLET PO SCH (22:00)
[2020-02-07] MEDS ORDERED: ANASTROZOLE 1 MG TABLET PO SCH (22:00)
[2020-02-07] MEDS: HYDROXYZINE PAMOATE 25 MG CAPSULE PO SCH (23:05)
[2020-02-07] MEDS: BUPROPION HCL 75 MG TABLET PO SCH (23:05)
[2020-02-07] MEDS: INSULIN GLARGINE,HUM.REC.ANLOG 1,000 UNIT/10 ML VIAL SUBCUT SCH (23:11)
[2020-02-08 06:30] LABS: ABSOLUTE EOSINOPHILS # (AUTO) 0.1 10^3/uL (0.0-0.6); ABSOLUTE LYMPHOCYTES (AUTO) 2.1 10^3/uL (0.5-4.7); ABSOLUTE MONOCYTES (AUTO) 0.5 10^3/uL (0.1-1.4); ABSOLUTE NEUT (AUTO) 3.8 10^3/uL (1.7-8.2); BASOPHILS % (AUTO) 0.6 % (0-2); HEMATOCRIT 26.4 % (36.0-47.0); LYMPHOCYTES % (AUTO) 31.4 % (13-45); MEAN CORPUSCULAR HEMOGLOBIN 31.1 pg (27.0-33.4); MEAN CORPUSCULAR VOLUME 92 fl (80-97); MONOCYTES % (AUTO) 7.9 % (3-13); PLATELET COUNT 285 10^3/uL (150-450); RED BLOOD COUNT 2.89 10^6/uL (3.72-5.28); RED CELL DISTRIBUTION WIDTH 17.1 % (11.5-14.0); SEGMENTED NEUTROPHILS % (AUTO) 58.1 % (42-78); TOTAL CELLS COUNTED % (AUTO) 100 %; WHITE BLOOD COUNT 6.6 10^3/uL (4.0-10.5)
[2020-02-08 06:49] LABS: ANION GAP 7 (5-19); BLOOD UREA NITROGEN 26 mg/dL (7-20); CALCIUM 11.9 mg/dL (8.4-10.2); CARBON DIOXIDE 32 mmol/L (22-30); CHLORIDE 94 mmol/L (98-107); GLUCOSE 296 mg/dL (75-110); POTASSIUM 4.1 mmol/L (3.6-5.0)
[2020-02-08] MEDS ORDERED: ZOLEDRONIC ACID 4 MG/100 ML RTU IV ONE ×2 (07:49→10:00)
--- NOTE | 2020-02-08 07:49 | Progress Note ---
Provider Note Provider Note: I was able to speak with patient by phone today. She is having pain, but no other complaints. She is not able to walk much due to the pain. She believes the pain meds are helping and I have encouraged her to ask for these more often. I reviewed the results of the CT scans and discussed this with the patient. I have explained to her that the pain is caused from the return of her cancer and that she has mets in the lungs, liver and bones. I am awaiting MRI of the brain as this report is not yet available. I would like to stop the arimidex and start letrazole, ibrance, xgeva, but this should be done as outpatient. I will give 1 dose of zometa here due to the bone mets and hypercalcemia. Consider adding duragesic for more consistent pain control, but she has only used 2 doses of PRN pain meds in the last 24 hours, so I have encouraged her to take this more often to see what dose of the duragesic would be best to start. I will continue to follow with you. Please call with any concerns.
[2020-02-08] MEDS ORDERED: NORMAL SALINE 1000 ML 1,000 ML IV PRN (08:34)
[2020-02-08] MEDS: INSULIN LISPRO 100 UNIT/ML 3 ML VIAL SUBCUT SCH ×4 (09:14→12:52)
[2020-02-08] MEDS: ASCORBIC ACID 500 MG TABLET PO SCH (09:15)
[2020-02-08] MEDS: FAMOTIDINE 20 MG TABLET PO SCH (09:15)
[2020-02-08] MEDS: LOSARTAN POTASSIUM 25 MG TABLET PO SCH (09:15)
[2020-02-08] MEDS: OXYCODONE HCL IR 5 MG TABLET PO PRN (09:15)
[2020-02-08] MEDS: APIXABAN 5 MG TABLET PO SCH (09:15)
[2020-02-08] MEDS: GABAPENTIN 100 MG CAPSULE PO SCH (09:15)
[2020-02-08] MEDS: HYDROXYZINE PAMOATE 25 MG CAPSULE PO SCH (09:15)
[2020-02-08] MEDS: BUPROPION HCL 75 MG TABLET PO SCH (09:16)
[2020-02-08] MEDS ORDERED: ZINC SULFATE 220 MG CAPSULE PO SCH (10:00)
[2020-02-08] MEDS ORDERED: CALCIUM CARBONATE 600 MG/VITAMIN D3 400 UNIT TABLET PO SCH (10:00)
[2020-02-08] MEDS ORDERED: MULTIVITAMIN TABLET PO SCH (10:00)
[2020-02-08] MEDS ORDERED: FLUOXETINE HCL 20 MG CAPSULE PO SCH (10:00)
[2020-02-08] MEDS: INSULIN GLARGINE,HUM.REC.ANLOG 1,000 UNIT/10 ML VIAL SUBCUT SCH (11:31)
[2020-02-08] MEDS ORDERED: ALPRAZOLAM 0.25 MG TABLET PO SCH (12:00)
--- NOTE | 2020-02-08 12:29 | RADIOLOGY REPORT (SQ) ---
EXAM DESCRIPTION: NM WHOLE BODY BONE SCAN IMAGES COMPLETED DATE/TIME: 02/08/2020 11:14 am REASON FOR STUDY: restaging breast cancer COMPARISON: Bone scan 12/30/2015 RADIONUCLIDE AND DOSE: 20 millicuries Tc99m MDP. The route of agent administration: Intravenous. ADDITIONAL DRUGS AND DOSES: None. TECHNIQUE: Routine delayed images at 3 hours post radionuclide injection acquired of the bony skelet on including anterior and posterior whole-body projections and additional focused images as needed. LIMITATIONS: None. FINDINGS: BONES: Multiple areas of abnormally increased uptake in the calvarium, ribs, spine, sacrum , pelvis, femurs, and right humerus. These findings were not present on the earlier study. KIDNEYS: Symmetric excretion without obstruction. OTHER: No other significant finding. IMPRESSION: Extensive metastatic disease to bone. COMMENT: Quality measure 147: Current bone scan is compared with any available plain radiographs, p rior bone scans, and CT/MRI. TECHNICAL DOCUMENTATION: JOB ID: [id number] 2010 [employer]- All Rights Reserved Reading location - IP/workstation name: [email or web address]
--- NOTE | 2020-02-08 13:37 | RADIOLOGY REPORT (SQ) ---
EXAM DESCRIPTION: MRI HEAD COMBO IMAGES COMPLETED DATE/TIME: 02/07/2020 5:41 pm REASON FOR STUDY: restaging breast cancer COMPARISON: 01/03/2020 TECHNIQUE: Multiplanar imaging includes noncontrasted T1, T2, FLAIR, diffusion with ADC map and post gadolinium contrast T1 sequences. Images stored on PACS. CONTRAST TYPE AND DOSE: 15 mL Prohance. RENAL FUNCTION: Not indicated. ACR Type II contrast agent associated with few, if any, unconfounded cases of NSF LIMITATIONS: None. FINDINGS: ANATOMY: No anomalies. Normal vascular flow voids. Pituitary fossa normal. CSF SPACES: Normal in size and contour. No hemorrhage. CEREBRUM: Unchanged abnormal dural enhancement in the frontal lobes, more conspicuous on the right. No definitive abnormal parenchymal enhancement. Several enhancing lesions in the left frontal calvar ium POSTERIOR FOSSA: No signal alteration. No hemorrhage. No edema, masses, or mass effect. Internal suzette tory canals, cerebellopontine angles, mastoids normal. No enhancing lesions. No abnormal enhancement post contrast. DIFFUSION IMAGING: Negative for acute or subacute infarction. ORBITS: No masses. Globes normal. PARANASAL SINUSES: No fluid levels. Mucosa normal. OTHER: No other significant finding. IMPRESSION: Bone metastasis. Unchanged dural metastasis. EVIDENCE OF ACUTE STROKE: NO. TECHNICAL DOCUMENTATION: JOB ID: [id number] 2010 [employer]- All Rights Reserved Reading location - IP/workstation name: [email or web address]
[2020-02-08 15:03] VITALS: BP 137/56
--- NOTE | 2020-02-08 15:05 | PDOC DISCHARGE SUMMARY ---
Impression - Admit/DC Date/PCP Admission Date/Primary Care Provider: 02/07/20 09:08 CARMELINA HALL Discharge Date: 02/08/20 - Discharge Diagnosis (1) Depression with anxiety Is this a current diagnosis for this admission?: Yes (2) Diabetes mellitus Is this a current diagnosis for this admission?: Yes (3) History of breast cancer Is this a current diagnosis for this admission?: Yes (4) Lower back pain Is this a current diagnosis for this admission?: Yes (5) Metastatic cancer to bone Is this a current diagnosis for this admission?: Yes (6) Pulmonary embolus Is this a current diagnosis for this admission?: Yes (7) Vertebral compression fracture Is this a current diagnosis for this admission?: Yes - Additional Information Resuscitation Status: Full Code Discharge Activity: Activity As Tolerated, Balance Activity w/Rest, Slowly Increase Activity Referrals: PRISCA ARCINIEGA MD [ACTIVE STAFF] - 02/15/20 2:00 pm (within a week of discharge - call office to arrange. ) Prescriptions: Oxycodone HCl [Oxy-Ir 5 mg Tablet] 5 mg PO Q4HP PRN #12 tablet PRN Reason: Home Medications: Gabapentin [Neurontin 100 mg Capsule] 100 mg PO DAILYP PRN 01/07/20 L. Acidophilus/L.bulgaricus [Lactobacillus Tablet] 1 each PO DAILY 01/07/20 Anastrozole [Arimidex 1 mg Tablet] 1 mg PO QHS tablet 01/22/20 Ascorbic Acid [Vitamin C 500 mg Tablet] 500 mg PO BID tablet 01/22/20 Bupropion HCl [Wellbutrin 75 mg Tablet] 150 mg PO Q12 tablet 01/22/20 Fluoxetine HCl [Prozac 20 mg Capsule] 40 mg PO DAILY capsule 01/22/20 Hydroxyzine Pamoate [Vistaril 25 mg Capsule] 25 mg PO Q12 #60 capsule 01/22/20 Insulin Glargine,Hum.rec.anlog [Lantus Insulin 100 Unit/mL Insulin Pen] 22 unit SUBCUT Q12 #5 pen 01/22/20 Montelukast Sodium [Singulair 10 mg Tablet] 10 mg PO QHS tablet 01/22/20 Multivitamin [Tab-A-Cintia (Multiple Vitamin) Tablet] 1 tab PO DAILY tablet 01/22/20 Zinc Sulfate [Zinc-220 Capsule] 220 mg PO DAILY capsule 01/22/20 Alprazolam [Xanax 0.25 mg Tablet] 0.25 mg PO NOON 02/07/20 Alprazolam [Xanax 0.25 mg Tablet] 0.25 mg PO Q8HP PRN 02/07/20 Gabapentin [Neurontin 100 mg Capsule] 100 mg PO Q12 02/07/20 Insulin Aspart [Novolog Flexpen] 0 unit SUBCUT .SLD SCALE 02/07/20 Insulin Aspart [Novolog Flexpen] 7 unit SUBCUT AC 02/07/20 Losartan Potassium [Cozaar 25 mg Tablet] 25 mg PO QPM 02/07/20 Metoclopramide HCl [Reglan 10 mg Tablet] 10 mg PO BID 02/07/20 Acetaminophen [Tylenol 325 mg Tablet] 650 mg PO Q4HP PRN tablet 02/08/20 Oxycodone HCl [Oxy-Ir 5 mg Tablet] 5 mg PO Q4HP PRN #12 tablet 02/08/20 History of Present Illiness History of Present Illness: Per H&P by Dr. [place]: CHARLIE PERKINS is a 59 year old female with a history of breast cancer in 2016 status post left mastectomy and chemotherapy, diabetes mellitus, pulmonary embolus and recent treatment for COVID-19 now presents to the ED reporting 5 days duration of low back pain. She states that the pain started after she completed the tapering dose of steroid given for COVID-19 velia atment and she describes it as sharp, 9/10 intensity, nonradiating. She states that she has severe limitation of movement due to the pain and she has not been able to move her right lower extremity. She reports that she is able to stand on it and walk but when lying down on her back she has difficulty of lifting it up mainly because of pain. Occasionally she has been having difficulty of controlling her bladder that she had LP done about a month ago but denies any loss of control of bowel movement. She denies any chest pain, shortness of breath, cough, fever, chills, nausea, vomiting, diarrhea, abdominal pain or dysuria. Hospital Course Hospital Course: The patient was admitted to the medical floor for intractable back pain related to bone metastasis and vertebral compression fracture. Dr. Arciniega, her established oncologist, was consulted. Discussed plan of care with Dr. Wesley. Patient was provided Percocet as needed with Dilaudid for breakthrough pain. She did not require any additional IV Dilaudid doses after leaving the emergency department and so this was discontinued and oral options provided with adequate pain relief. Patient is now ambulatory with minimal assistance. She underwent lumbar spine MRI, head MRI, chest/abdominal/pelvis CT, and nuclear bone scan. Unfortunately, she was found to have extensive metastatic disease to the bone (calvarium, ribs, spine, sacrum, pelvis, femurs, and right humerus), numerous bilateral pulmonary nodules, and several liver lesions. She was provided IVF and Zoledronic acid for treatment of her bone metastasis related hypercalcemia. Patient is discharged home in stable condition, to the care of family members. She is advised of the importance of keeping her follow up appointment as sc heduled with Dr. Arciniega next week. Physical Exam Vital Signs: Temp Pulse Resp BP Pulse Ox 98.2 F 85 18 137/56 H 96 02/08/20 15:02 02/08/20 15:02 02/08/20 15:02 02/08/20 15:02 02/08/20 15:02 Intake & Output 02/07/20 02/08/20 02/09/20 06:59 06:59 06:59 Intake Total 1667 Balance 1667 Weight 66.678 kg 66.4 kg General appearance: PRESENT: no acute distress, cooperative, well-developed, well-nourished - Overweight Head exam: PRESENT: atraumatic, normocephalic Eye exam: PRESENT: conjunctiva pink, EOMI, PERRLA. ABSENT: scleral icterus Mouth exam: PRESENT: moist, tongue midline Respiratory exam: PRESENT: clear to auscultation zohreh, symmetrical, unlabored, other - Room air. ABSENT: rales, rhonchi, wheezes Cardiovascular exam: PRESENT: RRR. ABSENT: diastolic murmur, rubs, systolic murmur Pulses: PRESENT: normal dorsalis pedis pul Vascular exam: PRESENT: normal capillary refill GI/Abdominal exam: PRESENT: normal bowel sounds, soft. ABSENT: distended, guarding, mass, organolmegaly, rebound, tenderness Rectal exam: PRESENT: deferred Extremities exam: PRESENT: full ROM. ABSENT: calf tenderness, clubbing, pedal edema Musculoskeletal exam: PRESENT: ambulatory Neurological exam: PRESENT: alert, awake, oriented to person, oriented to place, oriented to time, oriented to situation, CN II-XII grossly intact. ABSENT: motor sensory deficit Psychiatric exam: PRESENT: flat affect, normal mood. ABSENT: homicidal ideation, suicidal ideation Skin exam: PRESENT: dry, intact, warm. ABSENT: cyanosis, rash Results Laboratory Results: WBC 6.6 10^3/uL (4.0-10.5) 02/08/20 05:55 RBC 2.89 10^6/uL (3.72-5.28) L 02/08/20 05:55 Hgb 9.0 g/dL (12.0-15.5) L 02/08/20 05:55 Hct 26.4 % (36.0-47.0) L 02/08/20 05:55 MCV 92 fl (80-97) 02/08/20 05:55 MCH 31.1 pg (27.0-33.4) 02/08/20 05:55 MCHC 34.0 g/dL (32.0-36.0) 02/08/20 05:55 RDW 17.1 % (11.5-14.0) H 02/08/20 05:55 Plt Count 285 10^3/uL (150-450) 02/08/20 05:55 Lymph % (Auto) 31.4 % (13-45) 02/08/20 05:55 [place] % (Auto) 7.9 % (3-13) 02/08/20 05:55 Eos % (Auto) 2.0 % (0-6) 02/08/20 05:55 Baso % (Auto) 0.6 % (0-2) 02/08/20 05:55 Absolute Neuts (auto) 3.8 10^3/uL (1.7-8.2) 02/08/20 05:55 Absolute Lymphs (auto) 2.1 10^3/uL (0.5-4.7) 02/08/20 05:55 Absolute Monos (auto) 0.5 10^3/uL (0.1-1.4) 02/08/20 05:55 Absolute Eos (auto) 0.1 10^3/uL (0.0-0.6) 02/08/20 05:55 Absolute Basos (auto) 0.0 10^3/uL (0.0-0.2) 02/08/20 05:55 Seg Neutrophils % 58.1 % (42-78) 02/08/20 05:55 ESR 111 mm/hr (0-30) H 02/06/20 19:10 PT 15.8 SEC (11.4-15.4) H 02/06/20 18:51 INR 1.24 02/06/20 18:51 Sodium 132.8 mmol/L (137-145) L 02/08/20 05:55 Potassium 4.1 mmol/L (3.6-5.0) 02/08/20 05:55 Chloride 94 mmol/L (98-107) L 02/08/20 05:55 Carbon Dioxide 32 mmol/L (22-30) H 02/08/20 05:55 Anion Gap 7 (5-19) 02/08/20 05:55 BUN 26 mg/dL (7-20) H 02/08/20 05:55 Creatinine 1.37 mg/dL (0.52-1.25) H 02/08/20 05:55 Est GFR ( Amer) 48 (>60) L 02/08/20 05:55 Est GFR (MDRD) Non-Af 40 (>60) L 02/08/20 05:55 Glucose 296 mg/dL (75-110) H 02/08/20 05:55 POC Glucose 155 mg/dL (70-110) H 02/08/20 12:22 Calcium 11.9 mg/dL (8.4-10.2) H 02/08/20 05:55 Total Bilirubin 0.3 mg/dL (0.2-1.3) 02/06/20 18:51 Direct Bilirubin 0.1 mg/dL (0.0-0.4) 02/06/20 18:51 Neonat Total Bilirubin Not Reportable 02/06/20 18:51 Neonat Direct Bilirubin Not Reportable 02/06/20 18:51 Neonat Indirect Bili Not Reportable 02/06/20 18:51 AST 89 U/L (14-36) H 02/06/20 18:51 ALT 62 U/L (<35) H 02/06/20 18:51 Alkaline Phosphatase 195 U/L (38-126) H 02/06/20 18:51 Creatine Kinase 94 U/L (30-135) 02/06/20 19:10 C-Reactive Protein 42.9 mg/L (<10.0) H 02/06/20 19:10 Total Protein 6.8 g/dL (6.3-8.2) 02/06/20 18:51 Albumin 3.7 g/dL (3.5-5.0) 02/06/20 18:51 Urine Color YELLOW 02/06/20 16:13 Urine Appearance SLIGHTLY-CLOUDY 02/06/20 16:13 Urine pH 7.0 (5.0-9.0) 02/06/20 16:13 Ur Specific [place] 1.013 02/06/20 16:13 Urine Protein NEGATIVE mg/dL (NEGATIVE) 02/06/20 16:13 Urine Glucose (UA) NEGATIVE mg/dL (NEGATIVE) 02/06/20 16:13 Urine Ketones NEGATIVE mg/dL (NEGATIVE) 02/06/20 16:13 Urine Blood NEGATIVE (NEGATIVE) 02/06/20 16:13 Urine Nitrite NEGATIVE (NEGATIVE) 02/06/20 16:13 Urine Bilirubin NEGATIVE (NEGATIVE) 02/06/20 16:13 Urine Urobilinogen NEGATIVE mg/dL (<2.0) 02/06/20 16:13 Ur Leukocyte Esterase NEGATIVE (NEGATIVE) 02/06/20 16:13 Urine WBC (Auto) 2 /HPF 02/06/20 16:13 Urine RBC (Auto) 1 /HPF 02/06/20 16:13 U Hyaline Cast (Auto) 1 /LPF 02/06/20 16:13 Amorphous Sediment Auto TRACE /HPF 02/06/20 16:13 Urine Mucus (Auto) RARE /LPF 02/06/20 16:13 Urine Ascorbic Acid 20 (NEGATIVE) H 02/06/20 16:13 Influenza A (RT-PCR) NEGATIVE (NEGATIVE) 02/07/20 02:11 Influenza B (RT-PCR) NEGATIVE (NEGATIVE) 02/07/20 02:11 RSV (RT-PCR) NEGATIVE (NEGATIVE) 02/07/20 02:11 SARS-CoV-2 Rap RNA(RT-PCR) POSITIVE (NEGATIVE) H 02/07/20 02:11 Impressions: Lumbar Spine X-Ray 02/06/20 15:40 IMPRESSION: Mild osseous demineralization without acute radiographic abnormality. Mild degenerative changes, predominantly demonstrated by facet arthropathy. Lumbar Spine MRI 02/06/20 20:04 IMPRESSION: 1. Diffuse infiltrating bone marrow process consistent with diffuse metastatic disease. 2. Subtle compression fracture involving the superior endplate of L4 with 15% loss of height of the vertebral body. This most likely is acute or recent. 3. Minimal multilevel degenerative disc disease. This is most pronounced at L4-5 where there is moderate spinal stenosis and foraminal narrowing. Head CT 02/06/20 20:05 IMPRESSION: 1. Stable appearance of presumed dural thickening adjacent to the right frontal lobe. Consider follow-up with brain MRI with contrast as clinically indicated. Abdomen/Pelvis CT 02/07/20 00:00 IMPRESSION: Too numerous to count bilateral pulmonary nodules consistent with metastatic disease. Widespread bony metastatic disease. IMPRESSION: 1. Metastatic disease in the liver. 2. Widespread bony metastatic disease. Chest CT 02/07/20 00:00 IMPRESSION: Too numerous to count bilateral pulmonary nodules consistent with metastatic disease. Widespread bony metastatic disease. IMPRESSION: 1. Metastatic disease in the liver. 2. Widespread bony metastatic disease. Head MRI 02/07/20 00:00 IMPRESSION: Bone metastasis. Unchanged dural metastasis. EVIDENCE OF ACUTE STROKE: NO. Body Scan Nuclear Medicine 02/08/20 00:00 IMPRESSION: Extensive metastatic disease to bone. Plan Plan of Treatment: Patient is discharged home in stable condition. Discussed discharge plan with patient and her daughter by speaker phone. They are advised to follow-up with Dr. Wesley as scheduled next week to discuss further diagnostics and treatment options. Take medications as prescribed. Drink plenty of water, rest, eat as tolerated. Return to emergency department, as needed, for concerning symptoms. Time Spent: Greater than 30 Minutes Stroke Is this a Stroke Patient?: No Acute Heart Failure Is this a Heart Failure Patient?: No
== END 2020-02-08 16:40 | disposition home or self-care (01) | DRG 947 ==
LOC: ER 13:41 → EH 02-07 00:50 → INTOOBSV 02-07 00:50 → 3S 02-07 05:52 → OBSVTOIN 02-07 09:08
PROVIDERS: ADMIT Student in an Organized Health Care Education/Training Program; ATTEND Registered Nurse
DX: G89.3 Neoplasm related pain (acute) (chronic) (principal); U07.1 COVID-19; I26.94 Multiple subsegmental thrombotic pulmonary emboli without acute cor pulmonale; C79.51 Secondary malignant neoplasm of bone; M48.56XA Collapsed vertebra, not elsewhere classified, lumbar region, initial encounter for fracture; F32.9 Major depressive disorder, single episode, unspecified; F41.9 Anxiety disorder, unspecified; I10 Essential (primary) hypertension; E83.52 Hypercalcemia; K76.9 Liver disease, unspecified; E10.9 Type 1 diabetes mellitus without complications; Z85.3 Personal history of malignant neoplasm of breast; Z79.4 Long term (current) use of insulin; Z79.899 Other long term (current) drug therapy; Z90.12 Acquired absence of left breast and nipple; Z92.21 Personal history of antineoplastic chemotherapy; Z79.01 Long term (current) use of anticoagulants; Z79.51 Long term (current) use of inhaled steroids; Z79.52 Long term (current) use of systemic steroids; Z88.8 Allergy status to other drugs, medicaments and biological substances; Z88.1 Allergy status to other antibiotic agents; Z91.013 Allergy to seafood; Z92.3 Personal history of irradiation
CPT/HCPCS: 36415; 70450; 70553; 71250; 72110; 72158; 74176; 78306; 80048; 80053; 81001; 82550; 82962; 85025; 85610; 85652; 86140; 96374; 96375; 99285; 0241U; A9503; A9576; C9803; G0378; J1100; J1642; J1815; J2270; J3489; J3490; Q9969

== ENCOUNTER → 2020-02-15 | Outpatient (CLI) | payer MEDICARE, OTHER ==
--- NOTE | 2020-02-16 08:40 | RADIOLOGY REPORT (SQ) ---
EXAM DESCRIPTION: MRI LUMBAR SPINE COMBO IMAGES COMPLETED DATE/TIME: 02/15/2020 5:52 pm REASON FOR STUDY: (C50.412)MALIG NEOPLASM OF UPPER-OUTER QUADRANT OF LEFT FEMALE BREAST C50.412 MAL IG NEOPLASM OF UPPER-OUTER QUADRANT OF LEFT FEMAL M54.5 LOW BACK PAIN C79.51 SECONDARY MALIGNANT NE OPLASM OF BONE COMPARISON: 02/06/2020, 02/08/2020 TECHNIQUE: Sagittal and Axial imaging includes T1, T1 post gadolinium, T2, STIR and gradient echo se quences. Coronal T2/HASTE imaging. CONTRAST TYPE AND DOSE: 15 mL ProHance RENAL FUNCTION: Not indicated. ACR Type II contrast agent associated with few, if any, unconfounded cases of NSF LIMITATIONS: None. FINDINGS: VISUALIZED UPPER ABDOMEN: Known hepatic metastatic disease, partially evaluated. No other acute findings. SEGMENTATION: No transitional anatomy. The lowest well-developed disc space is labeled L5-S1. ALIGNMENT: Anatomic. VERTEBRAE: Intact. No new compression deformity. Unchanged mild endplate change at L4. BONE MARROW: Diffuse infiltrative process with decreased T1 signal throughout the visualized axial [place] compatible known multifocal osseous metastatic disease. DISC SIGNAL: Mild disc height loss and desiccation as detailed below. POSTERIOR ELEMENTS: Generally intact. No pars defect evident. HARDWARE: None in the spine. CORD AND CONUS: Normal in size and signal intensity. Conus medullaris terminates at L1. SOFT TISSUES: No aortic aneurysm seen. No bulky retroperitoneal adenopathy or mass. No paraspinal mas s or fluid. L1-L2: No significant spinal stenosis or exit foraminal stenosis. L2-L3: Mild circumferential disc bulge without significant spinal canal stenosis or neural foraminal narrowing. L3-L4: Mild circumferential disc bulge without significant spinal canal stenosis. Mild bilateral carlo ral foraminal narrowing secondary to disc disease. L4-L5: Disc a loss of broad-based posterior disc bulge resulting in effacement of the CSF column and moderate canal stenosis secondary to disc and ligamentum flavum thickening. There is narrowing of th e bilateral lateral recesses with contact of the traversing nerve roots. There is [id number] ilateral neural foraminal narrowing secondary to disc and the set disease. L5-S1: Small broad-based disc without high-grade spinal canal stenosis or neural foraminal narrowing. LOWER THORACIC: Incompletely imaged. No stenosis seen. SACRUM: Visualized upper sacrum intact. ENHANCEMENT: Diffuse abnormal patchy enhancement throughout the visualized skeleton compatible with k nown multifocal metastatic disease. OTHER: No other significant findings. IMPRESSION: 1. No evidence of acute bony abnormality of the lumbar spine. 2. Diffuse osseous metastatic disease throughout the visualized axial skeleton, similar to Prior. 3. Multilevel degenerative changes greatest at L4-5 with resultant moderate spinal canal stenosis se condary to broad disc and ligamentum flavum thickening. Moderate associated bilateral neural foramin al narrowing. Additional level specific findings as above. TECHNICAL DOCUMENTATION: JOB ID: [id number] 2010 [employer]- All Rights Reserved Reading location - IP/workstation name: [email or web address]
== END ==
LOC: RAD 15:49
PROVIDERS: ATTEND Internal Medicine Hematology & Oncology
DX: C79.51 Secondary malignant neoplasm of bone (principal); C50.412 Malignant neoplasm of upper-outer quadrant of left female breast; M51.86 Other intervertebral disc disorders, lumbar region; M54.5 Low back pain
CPT/HCPCS: 72158; A9576